=== PATIENT | female | born 1950 | race Caucasian/White ===

== ENCOUNTER 2022-05-26 09:54 | Emergency (ER) | payer MEDICARE, SELFPAY ==
--- NOTE | ~2022-05-26 | XR_ITS ---
EXAMINATION: XR CHEST CLINICAL INFORMATION: Cough COMPARISON: 06/10/2017 chest radiograph TECHNIQUE: Frontal view of the chest was obtained. FINDINGS: Low lung volumes with elevation of the right hemidiaphragm and streaky right basilar opacities. No thorax. No pleural effusion. Remote appearing right rib fracture deformity. Unchanged cardiomediastinal silhouette. XR/XR chest 1V IMPRESSION: Low lung volumes with elevation of the right hemidiaphragm and streaky right basilar opacities favoring atelectasis given diaphragmatic elevation, although developing infection could appear similar.
--- NOTE | ~2022-05-26 | CT_ITS ---
EXAMINATION: CT HEAD WITHOUT CONTRAST CLINICAL INFORMATION: Altered mental status. COMPARISON: Head CT from 06/10/2017 TECHNIQUE: Contiguous axial imaging was performed from the skull base to vertex without intravenous administration of contrast. This CT examination was performed using dose optimization techniques as appropriate, variously including the following: *Automated exposure control *Adjustment of mA and/or kV according to patient size (this includes techniques or standardized protocols for targeted exams where dose is matched to indication/reason for exam; i.e. extremities or head) *Use of iterative reconstruction technique DLP: 582 mGy-cm FINDINGS: No intracranial hemorrhage, extra-axial fluid collection, focal mass effect or midline shift. There is atherosclerotic calcification of cavernous carotid arteries. The gill-white matter differentiation is maintained. No evidence of an acute major vascular territory infarction. Chronic moderate parenchymal volume loss with commensurate prominence of ventricles and sulci; no hydrocephalus. The brainstem and cerebellum are unremarkable. The calvarium is intact. Prior maxillary sinus antrostomies. Findings in paranasal sinuses include mucus and/or mucous retention cysts of inferior right frontal, ethmoid and right maxillary sinuses. No air-fluid levels within the visualized paranasal sinuses. There are frothy secretions in the right sphenoid sinus. The orbits, globes and temporomandibular joints are unremarkable. The mastoid air cells and middle ear cavities are well aerated. CT/CT head/brain wo con IMPRESSION: No evidence of mass, intracranial hemorrhage or other intracranial pathology compared to the prior head CT from 06/10/2017.
[2022-05-26 09:59] VITALS: BP 129/50; PULSE 101; RESP 20; TEMP 37; O2SAT 98; BMI 33.7
--- NOTE | 2022-05-26 12:36 | ED.GENADULT ---
HPI - General Adult General Chief complaint: General Medical Stated complaint: doesn't feel well, feels cold Time Seen by Provider: 05/26/22 12:20 Source: family Mode of arrival: ambulatory Limitations: other (dementia) History of Present Illness HPI narrative: This is 71 years old female with history of dementia brought in by the son because this a.m. she was more disoriented than usual more lethargic. There is no fever no vomiting no diarrhea. The patient is fully ambulatory she came in through triage, according to son now back to the baseline Onset (ago): hour(s) (6) Radiation: non-radiation Severity: mild Relieving factors: none Exacerbating factors: none Associated symptoms: denies other symptoms Related Data Previous Rx's Medication Instructions Recorded atorvastatin 80 mg tablet 80 mg PO DAILY 90 days #90 tabs 11/24/20 metoprolol succinate 25 mg 25 mg PO DAILY 90 days #90 tabs 11/24/20 tablet,extended release 24 hr nirmatrelvir 300 mg (150 mg x See Rx Instructions PO .COMPLEX 05/26/22 2)-ritonavir 100 mg tablet (EUA) #30 tabs (Paxlovid 300 mg () Allergies Allergy/AdvReac Type Severity Reaction Status Date / Time No Known Allergies Allergy Unverified 08/04/20 16:19 [No Known Allergies*] Review of Systems Review of Systems: Yes Other [facility] Past Medical History [facility] Narrative: Dementia Social History Social History Advance Directives: No Advance Directives Information Provided: Yes Physical Exam ED Vital Signs: Vital Signs - 24 hr 05/26/22 09:59 05/26/22 14:00 Temperature 98.6 F 98.2 F Pulse Rate 101 H 83 Respiratory Rate 20 14 Blood Pressure 129/50 L Pulse Oximetry 98 97 Oxygen Delivery Method Room Air Room Air BMI result Body Mass Index 33.7 Const General: cooperative, healthy appearing, no acute distress, well developed, alert, awake and Physically active Nutritional Appearance: average body habitus Orientation/consciousness: No patient oriented x3 Limitations: no limitations HENMT Head: Yes normal to inspection Ears: hearing grossly normal bilaterally General nose exam: Normal external nose present Face and sinus: Yes normal facial exam Mouth: Normal oral and palatal mucosa present Throat: Yes posterior oropharynx normal Neck Neck: Yes normal visual inspection, Yes full ROM, Yes no lymphadenopathy and Yes no meningeal signs Thyroid: Thyroid normal Chest Chest palpation & inspection: normal inspection of the chest Resp Effort & Inspection: normal respiratory effort Auscultation: clear to auscultation bilaterally Cardio Jugular venous distension: no JVD Rate: regular rate Rhythm: regular rhythm GI Inspection: Yes normal to inspection Palpation (GI): Soft to palpation, not firm, nontender and no guarding Auscultation: normal bowel sounds Skin General skin exam: no rashes or lesions noted Neuro General: No patient oriented x3, gait normal, no meningeal signs and no focal motor deficits Cranial nerves: Yes CN's II-XII intact bilaterally Gait exam (Neuro): Normal gait present Course Reevaluation(s) Reevaluation #1: Pt is covid positive,but good oxygenation at . Also she is afebrile.She does not meet criteria for admission.She is not been vaccinated for covid therefore she is an excellent candidate for Paxlovid (age +not vaccinated) Medical Decision Making Lab Data Result diagrams: 05/26/22 13:08 05/26/22 13:08 Labs: Lab Results 05/26/22 05/26/22 05/26/22 Range/Units 13:08 13:08 13:08 WBC Cancelled RBC Cancelled Hgb Cancelled Hct Cancelled MCV Cancelled MCH Cancelled MCHC Cancelled RDW Cancelled Plt Count Cancelled MPV Cancelled Immature Gran % (Auto) (0.0-0.4) % Neut % (Auto) (45-73) % Lymph % (Auto) (20-40) % [place] % (Auto) (2-11) % Eos % (Auto) (0-4) % Baso % (Auto) (0-2) % Lymph # (Auto) (1.2-4.9) X10*3/uL [place] # (Auto) (0.1-1.2) X10*3/uL Eos # (Auto) (0.0-0.4) X10*3/uL Baso # (Auto) (0.0-0.2) X10*3/uL Abs Immat Gran (auto) (0.00-0.03) X10*3/uL Absolute Neuts (auto) (2.0-8.3) x10*3/uL Absolute Nucleated RBC Cancelled Nucleated RBC % (auto) Cancelled Sodium Cancelled Potassium Cancelled Chloride Cancelled Carbon Dioxide Cancelled Anion Gap Cancelled BUN Cancelled Creatinine Cancelled Estim Creat Clear Calc Cancelled Estimated GFR Cancelled Random Glucose Cancelled Calcium Cancelled Total Bilirubin (0.0-1.0) mg/dL AST (5-31) U/L ALT (0-31) U/L Alkaline Phosphatase (39-117) U/L Troponin I High Sens (<3.5-17.0) ng/L Total Protein (6.5-8.0) g/dL Albumin (3.5-5.0) g/dL Urine Color Urine Appearance Urine pH (5.0-8.0) Ur Specific [place] (1.005-1.025) Urine Protein (NEG-TRACE) MG/DL Urine Glucose (UA) (NEG) MG/DL Urine Ketones (NEG) MG/DL Urine Blood (NEG) Urine Nitrite (NEG) Ur Leukocyte Esterase (NEG) Urine RBC (0) /HPF Urine WBC (0-4) /HPF Urine WBC Clumps Ur Squamous Epith Cells /LPF Ur Renal Epithelial Cell [place] Biurate Crystals Calcium Carbonate Cryst Calcium Phosphate Cryst Calcium Oxalate Crystal Leucine Crystals Cystine Crystals Uric Acid Crystals Triple Phos Crystals Talc Crystals Tyrosine Crystals Other Crystals Amorphous Sediment Urine Bacteria /LPF Epithelial Casts Fatty Casts Hyaline Casts Granular Casts Waxy Casts RBC Casts WBC Casts Other Casts Urine Mucus /LPF Urine Trichomonas Urine Yeast Urine Sperm Ur Oval Fat Bodies COVID-19 (JOSE) (Negative) COVID-19 Clin Com Influenza Type A (SUZY) Negative (Negative) Influenza Type B (SUZY) Negative (Negative) Influenza A & B Note See Note 05/26/22 05/26/22 05/26/22 Range/Units 13:08 13:08 13:08 WBC 8.6 RBC 4.53 Hgb 13.9 Hct 41.3 MCV 91.2 MCH 30.7 MCHC 33.7 RDW 12.7 Plt Count 231 MPV 9.3 L Immature Gran % (Auto) 0.5 H (0.0-0.4) % Neut % (Auto) 86.1 H (45-73) % Lymph % (Auto) 3.0 L (20-40) % [place] % (Auto) 9.6 (2-11) % Eos % (Auto) 0.6 (0-4) % Baso % (Auto) 0.2 (0-2) % Lymph # (Auto) 0.3 L (1.2-4.9) X10*3/uL [place] # (Auto) 0.8 (0.1-1.2) X10*3/uL Eos # (Auto) 0.1 (0.0-0.4) X10*3/uL Baso # (Auto) 0.0 (0.0-0.2) X10*3/uL Abs Immat Gran (auto) 0.04 H (0.00-0.03) X10*3/uL Absolute Neuts (auto) 7.4 (2.0-8.3) x10*3/uL Absolute Nucleated RBC 0.000 Nucleated RBC % (auto) 0.0 Sodium 135 Potassium 3.9 Chloride 103 Carbon Dioxide 24 Anion Gap 12 BUN 12 Creatinine 0.90 Estim Creat Clear Calc 52.3 Estimated GFR > 60 Random Glucose 100 Calcium 8.7 Total Bilirubin 0.9 (0.0-1.0) mg/dL AST 16 (5-31) U/L ALT 14 (0-31) U/L Alkaline Phosphatase 89 (39-117) U/L Troponin I High Sens 6.9 (<3.5-17.0) ng/L Total Protein 6.7 (6.5-8.0) g/dL Albumin 4.1 (3.5-5.0) g/dL Urine Color Urine Appearance Urine pH (5.0-8.0) Ur Specific [place] (1.005-1.025) Urine Protein (NEG-TRACE) MG/DL Urine Glucose (UA) (NEG) MG/DL Urine Ketones (NEG) MG/DL Urine Blood (NEG) Urine Nitrite (NEG) Ur Leukocyte Esterase (NEG) Urine RBC (0) /HPF Urine WBC (0-4) /HPF Urine WBC Clumps Ur Squamous Epith Cells /LPF Ur Renal Epithelial Cell [place] Biurate Crystals Calcium Carbonate Cryst Calcium Phosphate Cryst Calcium Oxalate Crystal Leucine Crystals Cystine Crystals Uric Acid Crystals Triple Phos Crystals Talc Crystals Tyrosine Crystals Other Crystals Amorphous Sediment Urine Bacteria /LPF Epithelial Casts Fatty Casts Hyaline Casts Granular Casts Waxy Casts RBC Casts WBC Casts Other Casts Urine Mucus /LPF Urine Trichomonas Urine Yeast Urine Sperm Ur Oval Fat Bodies COVID-19 (JOSE) (Negative) COVID-19 Clin Com Influenza Type A (SUZY) (Negative) Influenza Type B (SUZY) (Negative) Influenza A & B Note 05/26/22 05/26/22 Range/Units 13:09 13:19 WBC RBC Hgb Hct MCV MCH MCHC RDW Plt Count MPV Immature Gran % (Auto) (0.0-0.4) % Neut % (Auto) (45-73) % Lymph % (Auto) (20-40) % [place] % (Auto) (2-11) % Eos % (Auto) (0-4) % Baso % (Auto) (0-2) % Lymph # (Auto) (1.2-4.9) X10*3/uL [place] # (Auto) (0.1-1.2) X10*3/uL Eos # (Auto) (0.0-0.4) X10*3/uL Baso # (Auto) (0.0-0.2) X10*3/uL Abs Immat Gran (auto) (0.00-0.03) X10*3/uL Absolute Neuts (auto) (2.0-8.3) x10*3/uL Absolute Nucleated RBC Nucleated RBC % (auto) Sodium Potassium Chloride Carbon Dioxide Anion Gap BUN Creatinine Estim Creat Clear Calc Estimated GFR Random Glucose Calcium Total Bilirubin (0.0-1.0) mg/dL AST (5-31) U/L ALT (0-31) U/L Alkaline Phosphatase (39-117) U/L Troponin I High Sens (<3.5-17.0) ng/L Total Protein (6.5-8.0) g/dL Albumin (3.5-5.0) g/dL Urine Color YELLOW Urine Appearance HAZY Urine pH 5.5 (5.0-8.0) Ur Specific [place] >= 1.030 H (1.005-1.025) Urine Protein NEG (NEG-TRACE) MG/DL Urine Glucose (UA) NEG (NEG) MG/DL Urine Ketones NEG (NEG) MG/DL Urine Blood 2+ H (NEG) Urine Nitrite POS H (NEG) Ur Leukocyte Esterase NEG (NEG) Urine RBC 1-4 (0) /HPF Urine WBC 0-2 (0-4) /HPF Urine WBC Clumps Cancelled Ur Squamous Epith Cells 1+ /LPF Ur Renal Epithelial Cell Cancelled [place] Biurate Crystals Cancelled Calcium Carbonate Cryst Cancelled Calcium Phosphate Cryst Cancelled Calcium Oxalate Crystal Cancelled Leucine Crystals Cancelled Cystine Crystals Cancelled Uric Acid Crystals Cancelled Triple Phos Crystals Cancelled Talc Crystals Cancelled Tyrosine Crystals Cancelled Other Crystals Cancelled Amorphous Sediment Cancelled Urine Bacteria 3+ /LPF Epithelial Casts Cancelled Fatty Casts Cancelled Hyaline Casts Cancelled Granular Casts Cancelled Waxy Casts Cancelled RBC Casts Cancelled WBC Casts Cancelled Other Casts Cancelled Urine Mucus TRACE /LPF Urine Trichomonas Cancelled Urine Yeast Cancelled Urine Sperm Cancelled Ur Oval Fat Bodies Cancelled COVID-19 (JOSE) Positive A (Negative) COVID-19 Clin Com See Note Influenza Type A (SUZY) (Negative) Influenza Type B (SUZY) (Negative) Influenza A & B Note Discharge Plan Discharge Clinical Impression: COVID-19 Patient Disposition: Home, Self-Care Instructions: COVID-19 (Coronavirus Disease 2019) (ED) Prescriptions: New Paxlovid (EUA) 150 mg x 2- 100 mg tablet See Rx Instructions .ROUTE .COMPLEX Qty: 30 0RF Rx Instructions: take TWO 150 mg tablets of nirmatrelvir with ONE 100 mg tablet of ritonavir twice daily for 5 days No Action metoprolol succinate 25 mg tablet extended release 24 hr 25 mg PO DAILY 90 Days Qty: 90 1RF atorvastatin 80 mg tablet 80 mg PO DAILY 90 Days Qty: 90 1RF Rx Instructions: take at bedtime Interventions: ED Discharge Assessment Last Done: 05/26/22 15:02 Discharge Date/Time: 05/26/22 15:04
[2022-05-26 13:13] LABS: MANUAL DIFF FLAG NO
[2022-05-26 13:26] LABS: Appearance Urine HAZY; Color Urine YELLOW; Glucose Urine UA NEG (NEG); Leukocyte Esterase Urine NEG (NEG); Nitrite Urine POS (NEG); PH 5.5 (5.0-8.0); Specific Gravity - Urine >= 1.030 (1.005-1.025); UACC Culture Trigger YES; Urine Blood 2+ (NEG); Urine Ketones NEG (NEG); Urine Protein NEG (NEG-TRACE)
[2022-05-26 13:30] LABS: COVID-19 Test Positive (Negative); IDNOW Serial# 16C4AD1C
[2022-05-26 13:31] LABS: Basophils Percent Auto 0.2 % (0-2); Eosinophils Absolute Auto 0.1 X10*3/uL (0.0-0.4); Eosinophils Percent Auto 0.6 % (0-4); Hematocrit 41.3 % (37.0-47.0); Hemoglobin 13.9 g/dl (12.0-16.0); Imm Gran Abs Auto 0.04 X10*3/uL (0.00-0.03); Imm Gran Pct Auto 0.5 % (0.0-0.4); Lymphocytes Absolute Auto 0.3 X10*3/uL (1.2-4.9); Mean Corpuscular HGB Conc 33.7 g/dl (31.0-35.0); Mean Corpuscular Hemoglobin 30.7 pg (27.0-33.0); Mean Corpuscular Volume 91.2 fL (80.0-98.0); Mean Platelet Volume 9.3 fL (9.4-12.3); Monocytes Absolute Auto 0.8 X10*3/uL (0.1-1.2); Monocytes Percent Auto 9.6 % (2-11); Neutrophils Absolute Auto 7.4 x10*3/uL (2.0-8.3); Neutrophils Percent Auto 86.1 % (45-73); Platelet Count 231 X10*3/uL (160-400); Red Blood Count 4.53 X10*6/uL (4.20-5.50); Red Cell Distribution Width 12.7 % (11.0-16.0); White Blood Count 8.6 X10*3/uL (4.8-10.8)
[2022-05-26 13:35] LABS: Influenza A Negative (Negative); Influenza B2 Negative (Negative); Troponin-I High Sensitivity 6.9 ng/L (<3.5-17.0)
[2022-05-26 13:36] LABS: Alanine Aminotransferase 14 U/L (0-31); Albumin Level 4.1 g/dL (3.5-5.0); Alkaline Phosphatase 89 U/L (39-117); Anion Gap 12 (12-20); Aspartate Amino Transferase 16 U/L (5-31); Bilirubin Total 0.9 mg/dL (0.0-1.0); Blood Urea Nitrogen 12 mg/dL (9-16); Calcium 8.7 mg/dL (8.4-10.2); Carbon Dioxide 24 mmol/L (22-29); Chloride 103 mmol/L (96-108); Creatinine Clr Calc Pharmacy 52.3; Estimated Glomerular Filt Rate > 60; Glucose Random 100 mg/dL (60-115); Potassium 3.9 mmol/L (3.3-5.1); Sodium 135 mmol/L (135-145); Total Protein 6.7 g/dL (6.5-8.0)
[2022-05-26 13:46] LABS: Bacteria Urine 3+ /LPF; Mucus Urine TRACE /LPF; Squamous Epithelial Cell Urine 1+ /LPF; WBC Urine 0-2 /HPF (0-4)
[2022-05-26 14:00] VITALS: PULSE 83; RESP 14; TEMP 36.8; O2SAT 97
== END 2022-05-26 15:04 | disposition home or self-care (01) ==
PROVIDERS: Emergency Provider Emergency Medicine
DX: U07.1 COVID-19 (principal); R51.9 Headache, unspecified; Z79.899 Other long term (current) drug therapy
CPT/HCPCS: 36415; 70450; 71045; 80053; 81001; 84484; 85025; 87086; 87088; 87186; 87502; 87635; 99283; 99284

== ENCOUNTER 2022-08-23 07:05 | Outpatient (REF) | payer MEDICARE, SELFPAY ==
[2022-08-23 07:18] LABS: MANUAL DIFF FLAG NO
[2022-08-23 07:32] LABS: Basophils Absolute Auto 0.1 X10*3/uL (0.0-0.2); Basophils Percent Auto 0.6 % (0-2); Eosinophils Absolute Auto 0.4 X10*3/uL (0.0-0.4); Eosinophils Percent Auto 4.7 % (0-4); Hematocrit 47.6 % (37.0-47.0); Imm Gran Abs Auto 0.02 X10*3/uL (0.00-0.03); Imm Gran Pct Auto 0.2 % (0.0-0.4); Lymphocytes Absolute Auto 2.3 X10*3/uL (1.2-4.9); Lymphocytes Percent Auto 27.2 % (20-40); Mean Corpuscular HGB Conc 33.6 g/dl (31.0-35.0); Mean Corpuscular Hemoglobin 30.3 pg (27.0-33.0); Mean Corpuscular Volume 90.2 fL (80.0-98.0); Mean Platelet Volume 9.6 fL (9.4-12.3); Monocytes Absolute Auto 0.5 X10*3/uL (0.1-1.2); Monocytes Percent Auto 5.8 % (2-11); Neutrophils Absolute Auto 5.2 x10*3/uL (2.0-8.3); Neutrophils Percent Auto 61.5 % (45-73); Platelet Count 297 X10*3/uL (160-400); Red Blood Count 5.28 X10*6/uL (4.20-5.50); Red Cell Distribution Width 12.4 % (11.0-16.0); White Blood Count 8.5 X10*3/uL (4.8-10.8)
[2022-08-23 08:28] LABS: Alanine Aminotransferase 20 U/L (0-31); Albumin Level 4.3 g/dL (3.5-5.0); Alkaline Phosphatase 79 U/L (39-117); Anion Gap 13 (12-20); Aspartate Amino Transferase 21 U/L (5-31); Blood Urea Nitrogen 12 mg/dL (9-16); Calcium 9.7 mg/dL (8.4-10.2); Carbon Dioxide 26 mmol/L (22-29); Chloride 106 mmol/L (96-108); Cholesterol 225 mg/dL; Estimated Glomerular Filt Rate > 60; Glucose Fasting 91 mg/dL (60-99); HDL Cholesterol 53 mg/dL; LDL Cholesterol Calculated 150 mg/dl; Potassium 4.2 mmol/L (3.3-5.1); Sodium 141 mmol/L (135-145); TSH reflex Free T4 3.35 uIU/mL (0.32-4.0); Total Protein 7.1 g/dL (6.5-8.0); Triglycerides 111 mg/dL; Vitamin D 25-OH Total 22.9 ng/mL (>30)
[2022-08-23 09:02] LABS: Folate 16.1 ng/mL (> or = 4.0); Vitamin B12 313 pg/mL (200-900)
[2022-08-27 16:52] LABS: Lyme Abs Screen <0.90 index
== END 2022-08-23 07:06 | disposition home or self-care (01) ==
LOC: HO.LAB 07:05
PROVIDERS: PCP Nurse Practitioner Family; Visit Provider Nurse Practitioner Family
DX: L98.9 Disorder of the skin and subcutaneous tissue, unspecified (principal); Z76.89 Persons encountering health services in other specified circumstances
CPT/HCPCS: 36415; 80053; 80061; 82306; 82607; 82746; 84443; 85025; 86617; 86618

== ENCOUNTER → 2022-12-18 15:16 | Outpatient (BNVA) | payer MEDICARE, SELFPAY | PROVIDERS: PCP Nurse Practitioner Family; Referring Provider Nurse Practitioner Family; Visit Provider Internal Medicine | DX: I25.10 Atherosclerotic heart disease of native coronary artery without angina pectoris (principal); F03.90 Unspecified dementia, unspecified severity, without behavioral disturbance, psychotic disturbance, mood disturbance, and anxiety | CPT/HCPCS: 93005; 99212 ==

== ENCOUNTER 2023-01-02 05:57 | Outpatient (REF) | payer MEDICARE, SELFPAY ==
[2023-01-02 08:02] LABS: Alanine Aminotransferase 42 U/L (0-31); Albumin Level 3.8 g/dL (3.5-5.0); Alkaline Phosphatase 107 U/L (39-117); Anion Gap 15 (12-20); Aspartate Amino Transferase 32 U/L (5-31); Bilirubin Total 1.2 mg/dL (0.0-1.0); Blood Urea Nitrogen 16 mg/dL (9-16); Calcium 9.1 mg/dL (8.4-10.2); Carbon Dioxide 24 mmol/L (22-29); Chloride 107 mmol/L (96-108); Estimated Glomerular Filt Rate > 60; Glucose Random 88 mg/dL (60-115); Potassium 4.2 mmol/L (3.3-5.1); Sodium 142 mmol/L (135-145); Total Protein 6.3 g/dL (6.5-8.0)
[2023-01-02 08:19] LABS: Vitamin D 25-OH Total 32.6 ng/mL (>30)
== END 2023-01-02 05:58 | disposition home or self-care (01) ==
LOC: HO.LAB 05:57
PROVIDERS: PCP Nurse Practitioner Family; Visit Provider Nurse Practitioner Family
DX: R79.89 Other specified abnormal findings of blood chemistry (principal); E78.5 Hyperlipidemia, unspecified; I25.10 Atherosclerotic heart disease of native coronary artery without angina pectoris
CPT/HCPCS: 36415; 80053; 82306

== ENCOUNTER 2023-03-23 18:17 | Emergency (ER) | payer MEDICARE, SELFPAY ==
--- NOTE | ~2023-03-23 | CT_ITS ---
EXAMINATION: CT ABDOMEN AND PELVIS WITH CONTRAST CLINICAL INFORMATION: Left lower quadrant pain. COMPARISON: 12/06/2017. TECHNIQUE: Multidetector volumetric images were obtained from the superior aspect of the liver through the pubic symphysis following administration 85 mL of Omnipaque 350 intravenous contrast. Sagittal and coronal reformatted images were obtained on the technologist's workstation. Oral contrast: No This CT examination was performed using dose optimization techniques as appropriate, variously including the following: *Automated exposure control *Adjustment of mA and/or kV according to patient size (this includes techniques or standardized protocols for targeted exams where dose is matched to indication/reason for exam; i.e. extremities or head) *Use of iterative reconstruction technique DLP: 697 mGy-cm FINDINGS: LUNG BASES: The lung bases appear clear, with no evidence of inflammation or nodules. Severe coronary arterial calcification. Heart normal in size. No pericardial effusion. LIVER, GALLBLADDER, AND BILIARY TREE: The liver appears unremarkable in size, shape, and attenuation. No focal hepatic lesion or biliary ductal dilatation is appreciated. Unremarkable appearance of the gallbladder. PANCREAS: Unremarkable SPLEEN: Normal variant splenule. ADRENAL GLANDS: Unremarkable KIDNEYS AND URETERS: Subcentimeter benign left mid simple renal cyst for which no further dedicated follow up imaging is indicated. The kidneys otherwise appear unremarkable in size, shape, and attenuation. Normal variant right extrarenal pelvis, similar compared with 2018. No hydronephrosis, hydroureter, or calculi seen. BLADDER: Unremarkable GASTROINTESTINAL TRACT: The small and large bowel appear unremarkable. No diverticulosis. Normal-appearing distal ileum and vermiform appendix. ABDOMINAL WALL: No significant hernia is appreciated. LYMPH NODES: No evidence of adenopathy by size criteria. VASCULAR: 8 mm distal splenic artery aneurysm (image 30, series 3), not significantly changed compared with 2018. Normal variant circumaortic left renal vein. PELVIC VISCERA: Status post hysterectomy. OSSEOUS STRUCTURES: Old, healed fracture of the right seventh rib. CT/CT abdomen pelvis w IV con IMPRESSION: No acute finding. 8 mm distal splenic artery aneurysm, not significantly changed compared with 2018. Additional findings, as above.
[2023-03-23 18:39] VITALS: BP 153/91; PULSE 70; RESP 16; TEMP 36.2; O2SAT 95; BMI 31.0
--- NOTE | 2023-03-23 18:40 | ED.ABDPAIN ---
HPI - Abdominal Pain General Chief Complaint: Abdominal Pain <MICHELLE Paige - Last Filed: 03/23/23 18:44> Stated Complaint: abdominal pain <MICHELLE Paige - Last Filed: 03/23/23 18:44> Time Seen by Provider: 03/23/23 21:09 <MICHELLE Paige - Last Filed: 03/23/23 18:44> Source: patient and family (Son, Smith) <Bruce Tinajero MD - Last Filed: 03/23/23 23:43> Mode of arrival: ambulatory <Bruce Tinajero MD - Last Filed: 03/23/23 23:43> Limitations: other (Patient has memory deficits, information comes from the patient's son) <Bruce Tinajero MD - Last Filed: 03/23/23 23:43> History of Present Illness HPI narrative: 72-year-old female who presents emergency department for evaluation of abdominal pain x2 days. According to her son, the patient was with his cousin's yesterday and last night. When she came home she complained abdominal pain. This morning she appeared to be well. At around 17:00 hours she again complained of abdominal pain. The patient runs her hand diffusely across her abdomen when asked to localize the pain. She describes the pain is a pain which is moderate intensity, constant. She denied fever, chills, nausea, vomiting or diarrhea. She has noted some urinary frequency but no dysuria. The son was concerned that she continued to complain the pain and she states that she could not take the pain anymore therefore he brought her to the emergency department for evaluation. The patient did not take any pain medications prior to coming to emergency department. <Bruce Tinajero MD - Last Filed: 03/23/23 23:43> Related Data Home Medications: Home Medications Medication Instructions Recorded Confirmed sertraline 25 mg tablet 25 mg PO DAILY 10/10/22 01/10/23 memantine 5 mg tablet 5 mg PO BID 12/18/22 01/10/23 Previous Rx's Medication Instructions Recorded nystatin 100,000 unit/gram topical 1 appl topical TID PRN rash #60 10/10/22 powder grams metoprolol succinate 25 mg 25 mg PO DAILY #90 tabs 12/18/22 tablet,extended release 24 hr (Toprol XL) aspirin 81 mg tablet,delayed 81 mg PO DAILY #90 tabs 01/10/23 release atorvastatin 80 mg tablet 80 mg PO DAILY #90 tabs 01/10/23 quetiapine 25 mg tablet (Seroquel) 25 mg PO BEDTIME PRN insomnia #7 01/10/23 tabs ondansetron 4 mg disintegrating 4 mg PO Q6-8H PRN nausea and 03/23/23 tablet vomiting #8 tabs <MICHELLE Paige - Last Filed: 03/23/23 18:44> Allergies/Adverse Reactions: Allergies Allergy/AdvReac Type Severity Reaction Status Date / Time No Known Allergies Allergy Verified 01/10/23 15:58 [No Known Allergies*] <MICHELLE Paige - Last Filed: 03/23/23 18:44> Review of Systems Review of Systems Yes all other systems are reviewed and are negative <Bruce Tinajero MD - Last Filed: 03/23/23 23:43> [facility] Past Medical History [facility] Narrative: Past medical history: Hypertension, coronary disease, SD 2016 left circumflex lesion /REZA. Past surgical history: Hysterectomy. Social history: She lives at home with her son. She denies tobacco use. She was a former smoker. She denies alcohol and drug use. <Bruce Tinajero MD - Last Filed: 03/23/23 23:43> Medical History: Medical History COVID-19 Encounter to establish care <MICHELLE Paige - Last Filed: 03/23/23 18:44> Surgical History: Surgical History H/O: hysterectomy History of colonoscopy Hx of cardiac cath <MICHELLE Paige - Last Filed: 03/23/23 18:44> Family History Family History: Family History Mother No problems noted. Father No problems noted. <MICHELLE Paige - Last Filed: 03/23/23 18:44> Social History Social History: Social History Housing: House Patient Tobacco Use Status: Former Tobacco user Advance Directives: No Advance Directives Information Provided: No service: No Current occupational status: disabled Cognitive needs: No Hearing needs: No Vision needs: No <MICHELLE Paige - Last Filed: 03/23/23 18:44> Physical Exam ED Vital Signs: Vital Signs - 24 hr 03/23/23 18:39 03/23/23 22:52 Temperature 97.2 F 97.6 F Pulse Rate 70 67 Respiratory Rate 16 12 Blood Pressure 153/91 H 110/64 Pulse Oximetry 95 95 Oxygen Delivery Method Room Air Room Air BMI result Body Mass Index 31.0 <MICHELLE Paige - Last Filed: 03/23/23 18:44> Vital Signs - 24 hr 03/23/23 18:39 03/23/23 22:52 Temperature 97.2 F 97.6 F Pulse Rate 70 67 Respiratory Rate 16 12 Blood Pressure 153/91 H 110/64 Pulse Oximetry 95 95 Oxygen Delivery Method Room Air Room Air BMI result Body Mass Index 31.0 <Bruce Tinajero MD - Last Filed: 03/23/23 23:43> Const Other: Awake, alert, female patient, very pleasant cooperative, does not appear to be in distress <Bruce Tinajero MD - Last Filed: 03/23/23 23:43> HENMT Head: Yes normal to inspection, Yes normocephalic and Yes atraumatic <Bruce Tinajero MD - Last Filed: 03/23/23 23:43> Ears: external ears normal <Bruce Tinajero MD - Last Filed: 03/23/23 23:43> General nose exam: Normal external nose present <Bruce Tinajero MD - Last Filed: 03/23/23 23:43> Face and sinus: Yes normal facial exam <Bruce Tinajero MD - Last Filed: 03/23/23 23:43> Mouth: Normal oral and palatal mucosa present <Bruce Tinajero MD - Last Filed: 03/23/23 23:43> Throat: Yes posterior oropharynx normal <MD Monica Quezada Last Filed: 03/23/23 23:43> Eyes General: appearance normal, both eyes and all related structures <MD Monica Quezada Last Filed: 03/23/23 23:43> Pupils: Equal, round and reactive pupils present <MD Monica Quezada Last Filed: 03/23/23 23:43> Neck Neck: Yes normal visual inspection, Yes no lymphadenopathy, Yes trachea midline and Yes supple <MD Monica Quezada Last Filed: 03/23/23 23:43> Chest Chest palpation & inspection: normal inspection of the chest and normal palpation of entire chest wall <MD Monica Quezada Last Filed: 03/23/23 23:43> Resp Effort & Inspection: normal respiratory effort and able to speak in complete sentences <MD Monica Quezada Last Filed: 03/23/23 23:43> Auscultation: clear to auscultation bilaterally <MD Monica Quezada Last Filed: 03/23/23 23:43> Cardio Rate: regular rate <MD Monica Quezada Last Filed: 03/23/23 23:43> Rhythm: regular rhythm <MD Monica Quezada Last Filed: 03/23/23 23:43> Heart sounds: S1 normal heart sound present, S2 normal heart sound present and no murmurs <MD Monica Quezada Last Filed: 03/23/23 23:43> GI Other: Patient's abdomen is soft, she has moderate right upper quadrant tenderness, mild epigastric tender and moderate left-sided tenderness, she has normoactive bowel sounds she does not appear to be distended <MD Monica Quezada Last Filed: 03/23/23 23:43> General: Yes no CVA tenderness <MD Monica Quezada Last Filed: 03/23/23 23:43> Back/Spine/Pelvis Back: no CVA tenderness <MD Monica Quezada Last Filed: 03/23/23 23:43> Skin General skin exam: no rashes or lesions noted <Bruce Tinajero MD - Last Filed: 03/23/23 23:43> Neuro Cranial nerves: Yes CN's II-XII intact bilaterally and Yes Equal, round and reactive pupils present <Bruce Tinajero MD - Last Filed: 03/23/23 23:43> Cognition (Neuro): normal cognition <Bruce Tinajero MD - Last Filed: 03/23/23 23:43> Motor exam (neuro): 5/5 motor strength present throughout <Bruce Tinajero MD - Last Filed: 03/23/23 23:43> Extrem General: Yes normal to inspection <Bruce Tinajero MD - Last Filed: 03/23/23 23:43> Psych Appearance: grossly normal <Bruce Tinajero MD - Last Filed: 03/23/23 23:43> Speech and movement: Normal speech and movement present <Bruce Tinajero MD - Last Filed: 03/23/23 23:43> Affect: normal affect <Bruce Tinajero MD - Last Filed: 03/23/23 23:43> Attitude: cooperative <Bruce Tinajero MD - Last Filed: 03/23/23 23:43> Course Course Course Narrative: RME: 72yo F w/PMHx dementia, CAD, SD, HLD, c/o lower abdominal pain since this AM. Hx limited due to baseline dementia. denies N/V/D, urinary sx Abd soft +LLQ/lower ttp no rebound or guarding labs, UA, CTAP ordered Full HPI, ROS and PE to be performed by primary ED provider. <MICHELLE Paige - Last Filed: 03/23/23 18:44> RME: 72yo F w/PMHx dementia, CAD, SD, HLD, c/o lower abdominal pain since this AM. Hx limited due to baseline dementia. denies N/V/D, urinary sx Abd soft +LLQ/lower ttp no rebound or guarding labs, UA, CTAP ordered Full HPI, ROS and PE to be performed by primary ED provider. RME: Reviewed by me <Bruce Tinajero MD - Last Filed: 03/23/23 23:43> Medical Decision Making Medical Decision Making [facility] Narrative: 72-year-old female who presents emergency department for evaluation of 2 days of abdominal pain, pain started last night, she felt better this morning and the pain returned at 17:00 hours. Patient's pain is located diffusely throughout her abdomen and has gotten worse this evening. Patient does have right upper quadrant epigastric and left-sided abdominal tenderness, she does not appear to be distended she has normoactive bowel sounds. Provider at triage ordered CBC, BMP, liver panel, PT/INR, urinalysis, CT scan abdomen pelvis with IV contrast. Given her coronary artery disease I did add troponin and EKG. Patient's pain will be treated with Toradol 15 mg IV and Zofran 4 mg IV. I also ordered normal saline x1 L. 2130: My interpretation patient's data is as follows: WBC elevated 12,300. BUN elevated 21 with normal creatinine at 0.85. Elevated AST and ALT 02/15/2036, elevated bilirubin 1.3 with direct bilirubin 0.3. Lipase normal 43. Troponin was below detectable limits. Twelve EKG was unremarkable. 2335: CT scan of the abdomen pelvis did not reveal a clear cause for the patient's abdominal pain. Patient is pain-free, repeat abdominal exam revealed no abdominal tenderness. Patient was discharged home and advised to take Tylenol ibuprofen for pain. She also prescribe Zofran for nausea. She was given printed and verbal instructions. <Bruce Tinajero MD - Last Filed: 03/23/23 23:43> Differential Diagnosis Differential diagnosis includes but is not limited to gastritis, biliary disease, bowel obstruction, myocardial infarction/ischemia, colitis, pancreatitis, viral syndrome <Bruce Tinajero MD - Last Filed: 03/23/23 23:43> Lab Data [facility] Lab Attestation statement: I reviewed the patient's lab results. <Bruce Tinajero MD - Last Filed: 03/23/23 23:43> Please see [facility] <Bruce Tinajero MD - Last Filed: 03/23/23 23:43> Result Diagrams: 03/23/23 18:54 03/23/23 18:54 <MICHELLE Paige - Last Filed: 03/23/23 18:44> Labs: Lab Results 03/23/23 03/23/23 03/23/23 Range/Units 18:54 18:54 21:05 WBC 12.3 H (4.8-10.8) X10*3/uL RBC 5.51 H (4.20-5.50) X10*6/uL Hgb 16.6 H (12.0-16.0) g/dl Hct 49.5 H (37.0-47.0) % MCV 89.8 (80.0-98.0) fL MCH 30.1 (27.0-33.0) pg MCHC 33.5 (31.0-35.0) g/dl RDW 12.7 (11.0-16.0) % Plt Count 223 (160-400) X10*3/uL MPV 10.7 (9.4-12.3) fL Immature Gran % (Auto) 0.2 (0.0-0.4) % Neut % (Auto) 70.1 (45-73) % Lymph % (Auto) 20.9 (20-40) % Blair % (Auto) 6.0 (2-11) % Eos % (Auto) 2.4 (0-4) % Baso % (Auto) 0.4 (0-2) % Lymph # (Auto) 2.6 (1.2-4.9) X10*3/uL Blair # (Auto) 0.7 (0.1-1.2) X10*3/uL Eos # (Auto) 0.3 (0.0-0.4) X10*3/uL Baso # (Auto) 0.1 (0.0-0.2) X10*3/uL Abs Immat Gran (auto) 0.03 (0.00-0.03) X10*3/uL Absolute Neuts (auto) 8.6 H (2.0-8.3) x10*3/uL Absolute Nucleated RBC 0.000 (0.0-0.012) X10*3/uL Nucleated RBC % (auto) 0.0 (0.0-0.2) /100WBC Smear Tech's Comments VERIFIED PT 11.4 (10.0-13.1) SEC INR 1.0 (0.9-1.1) Sodium 142 (135-145) mmol/L Potassium 4.5 (3.3-5.1) mmol/L Chloride 106 (96-108) mmol/L Carbon Dioxide 26 (22-29) mmol/L Anion Gap 15 (12-20) BUN 21 H (9-16) mg/dL Creatinine 0.85 (0.5-1.4) mg/dL Estim Creat Clear Calc 54.4 Estimated GFR > 60 Random Glucose 92 (60-115) mg/dL Calcium 10.6 H D (8.4-10.2) mg/dL Magnesium 2.1 (1.6-2.6) mg/dL Total Bilirubin 1.2 H (0.0-1.0) mg/dL Direct Bilirubin 0.3 (0.0-0.5) mg/dL AST 33 H (5-31) U/L ALT 36 H (0-31) U/L Alkaline Phosphatase 107 (39-117) U/L Troponin I High Sens (<3.5-17.0) ng/L Total Protein 7.5 (6.5-8.0) g/dL Albumin 4.5 (3.5-5.0) g/dL Lipase 43 (8-78) U/L 03/23/23 Range/Units 22:04 WBC (4.8-10.8) X10*3/uL RBC (4.20-5.50) X10*6/uL Hgb (12.0-16.0) g/dl Hct (37.0-47.0) % MCV (80.0-98.0) fL MCH (27.0-33.0) pg MCHC (31.0-35.0) g/dl RDW (11.0-16.0) % Plt Count (160-400) X10*3/uL MPV (9.4-12.3) fL Immature Gran % (Auto) (0.0-0.4) % Neut % (Auto) (45-73) % Lymph % (Auto) (20-40) % Blair % (Auto) (2-11) % Eos % (Auto) (0-4) % Baso % (Auto) (0-2) % Lymph # (Auto) (1.2-4.9) X10*3/uL Blair # (Auto) (0.1-1.2) X10*3/uL Eos # (Auto) (0.0-0.4) X10*3/uL Baso # (Auto) (0.0-0.2) X10*3/uL Abs Immat Gran (auto) (0.00-0.03) X10*3/uL Absolute Neuts (auto) (2.0-8.3) x10*3/uL Absolute Nucleated RBC (0.0-0.012) X10*3/uL Nucleated RBC % (auto) (0.0-0.2) /100WBC Smear Tech's Comments PT (10.0-13.1) SEC INR (0.9-1.1) Sodium (135-145) mmol/L Potassium (3.3-5.1) mmol/L Chloride (96-108) mmol/L Carbon Dioxide (22-29) mmol/L Anion Gap (12-20) BUN (9-16) mg/dL Creatinine (0.5-1.4) mg/dL Estim Creat Clear Calc Estimated GFR Random Glucose (60-115) mg/dL Calcium (8.4-10.2) mg/dL Magnesium (1.6-2.6) mg/dL Total Bilirubin (0.0-1.0) mg/dL Direct Bilirubin (0.0-0.5) mg/dL AST (5-31) U/L ALT (0-31) U/L Alkaline Phosphatase (39-117) U/L Troponin I High Sens < 2.7 (<3.5-17.0) ng/L Total Protein (6.5-8.0) g/dL Albumin (3.5-5.0) g/dL Lipase (8-78) U/L <MICHELLE Paige - Last Filed: 03/23/23 18:44> Lab Results 03/23/23 03/23/23 03/23/23 Range/Units 18:54 18:54 21:05 WBC 12.3 H (4.8-10.8) X10*3/uL RBC 5.51 H (4.20-5.50) X10*6/uL Hgb 16.6 H (12.0-16.0) g/dl Hct 49.5 H (37.0-47.0) % MCV 89.8 (80.0-98.0) fL MCH 30.1 (27.0-33.0) pg MCHC 33.5 (31.0-35.0) g/dl RDW 12.7 (11.0-16.0) % Plt Count 223 (160-400) X10*3/uL MPV 10.7 (9.4-12.3) fL Immature Gran % (Auto) 0.2 (0.0-0.4) % Neut % (Auto) 70.1 (45-73) % Lymph % (Auto) 20.9 (20-40) % Blair % (Auto) 6.0 (2-11) % Eos % (Auto) 2.4 (0-4) % Baso % (Auto) 0.4 (0-2) % Lymph # (Auto) 2.6 (1.2-4.9) X10*3/uL Blair # (Auto) 0.7 (0.1-1.2) X10*3/uL Eos # (Auto) 0.3 (0.0-0.4) X10*3/uL Baso # (Auto) 0.1 (0.0-0.2) X10*3/uL Abs Immat Gran (auto) 0.03 (0.00-0.03) X10*3/uL Absolute Neuts (auto) 8.6 H (2.0-8.3) x10*3/uL Absolute Nucleated RBC 0.000 (0.0-0.012) X10*3/uL Nucleated RBC % (auto) 0.0 (0.0-0.2) /100WBC Smear Tech's Comments VERIFIED PT 11.4 (10.0-13.1) SEC INR 1.0 (0.9-1.1) Sodium 142 (135-145) mmol/L Potassium 4.5 (3.3-5.1) mmol/L Chloride 106 (96-108) mmol/L Carbon Dioxide 26 (22-29) mmol/L Anion Gap 15 (12-20) BUN 21 H (9-16) mg/dL Creatinine 0.85 (0.5-1.4) mg/dL Estim Creat Clear Calc 54.4 Estimated GFR > 60 Random Glucose 92 (60-115) mg/dL Calcium 10.6 H D (8.4-10.2) mg/dL Magnesium 2.1 (1.6-2.6) mg/dL Total Bilirubin 1.2 H (0.0-1.0) mg/dL Direct Bilirubin 0.3 (0.0-0.5) mg/dL AST 33 H (5-31) U/L ALT 36 H (0-31) U/L Alkaline Phosphatase 107 (39-117) U/L Troponin I High Sens (<3.5-17.0) ng/L Total Protein 7.5 (6.5-8.0) g/dL Albumin 4.5 (3.5-5.0) g/dL Lipase 43 (8-78) U/L 03/23/23 Range/Units 22:04 WBC (4.8-10.8) X10*3/uL RBC (4.20-5.50) X10*6/uL Hgb (12.0-16.0) g/dl Hct (37.0-47.0) % MCV (80.0-98.0) fL MCH (27.0-33.0) pg MCHC (31.0-35.0) g/dl RDW (11.0-16.0) % Plt Count (160-400) X10*3/uL MPV (9.4-12.3) fL Immature Gran % (Auto) (0.0-0.4) % Neut % (Auto) (45-73) % Lymph % (Auto) (20-40) % Blair % (Auto) (2-11) % Eos % (Auto) (0-4) % Baso % (Auto) (0-2) % Lymph # (Auto) (1.2-4.9) X10*3/uL Blair # (Auto) (0.1-1.2) X10*3/uL Eos # (Auto) (0.0-0.4) X10*3/uL Baso # (Auto) (0.0-0.2) X10*3/uL Abs Immat Gran (auto) (0.00-0.03) X10*3/uL Absolute Neuts (auto) (2.0-8.3) x10*3/uL Absolute Nucleated RBC (0.0-0.012) X10*3/uL Nucleated RBC % (auto) (0.0-0.2) /100WBC Smear Tech's Comments PT (10.0-13.1) SEC INR (0.9-1.1) Sodium (135-145) mmol/L Potassium (3.3-5.1) mmol/L Chloride (96-108) mmol/L Carbon Dioxide (22-29) mmol/L Anion Gap (12-20) BUN (9-16) mg/dL Creatinine (0.5-1.4) mg/dL Estim Creat Clear Calc Estimated GFR Random Glucose (60-115) mg/dL Calcium (8.4-10.2) mg/dL Magnesium (1.6-2.6) mg/dL Total Bilirubin (0.0-1.0) mg/dL Direct Bilirubin (0.0-0.5) mg/dL AST (5-31) U/L ALT (0-31) U/L Alkaline Phosphatase (39-117) U/L Troponin I High Sens < 2.7 (<3.5-17.0) ng/L Total Protein (6.5-8.0) g/dL Albumin (3.5-5.0) g/dL Lipase (8-78) U/L <Bruce Tinajero MD - Last Filed: 03/23/23 23:43> Radiology Impression Discussion of test interpretation with radiology: I have reviewed the radiologist's reading. <Bruce Tinajero MD - Last Filed: 03/23/23 23:43> Radiologist Impression: CT abdomen pelvis w IV con IMPRESSION: No acute finding. 8 mm distal splenic artery aneurysm, not significantly changed compared with 2018. Additional findings, as above. Dictated By:Bart Schwartz <Bruce Tinajero MD - Last Filed: 03/23/23 23:43> Independent Historian Clinical information obtained from an independent historian. History obtained from or confirmed by: Other (Patient's son, Smith provided most of the information since the patient has dementia) <Bruce Tinajero MD - Last Filed: 03/23/23 23:43> Medications Administered Discontinued Medications Generic Name Dose Route Start Last Admin Trade Name Freq PRN Reason Stop Dose Admin Sodium Chloride 1,000 mls @ 999 mls/hr 03/23/23 21:22 03/23/23 22:05 Ns IV 03/23/23 22:22 999 mls/hr .Q1H1M STA Administration Iohexol 100 ml 03/23/23 21:45 03/23/23 21:45 Iohexol 350 Mg/Ml 100 Ml Infus..Btl IV 03/23/23 21:46 85 ml ONCE ONE Administration Ketorolac Tromethamine 15 mg 03/23/23 21:22 03/23/23 22:05 Ketorolac Tromethamine 15 Mg/Ml Vial IVPUSH 03/23/23 21:23 15 mg ONCE STA Administration Ondansetron HCl 4 mg 03/23/23 21:22 03/23/23 22:05 Ondansetron Hcl 4 Mg/2 Ml Vial IVPUSH 03/23/23 21:23 4 mg ONCE ONE Administration <MICHELLE Paige - Last Filed: 03/23/23 18:44> Medications Administered Discontinued Medications Generic Name Dose Route Start Last Admin Trade Name Freq PRN Reason Stop Dose Admin Sodium Chloride 1,000 mls @ 999 mls/hr 03/23/23 21:22 03/23/23 22:05 Ns IV 03/23/23 22:22 999 mls/hr .Q1H1M STA Administration Iohexol 100 ml 03/23/23 21:45 03/23/23 21:45 Iohexol 350 Mg/Ml 100 Ml Infus..Btl IV 03/23/23 21:46 85 ml ONCE ONE Administration Ketorolac Tromethamine 15 mg 03/23/23 21:22 03/23/23 22:05 Ketorolac Tromethamine 15 Mg/Ml Vial IVPUSH 03/23/23 21:23 15 mg ONCE STA Administration Ondansetron HCl 4 mg 03/23/23 21:22 03/23/23 22:05 Ondansetron Hcl 4 Mg/2 Ml Vial IVPUSH 03/23/23 21:23 4 mg ONCE ONE Administration <Bruce Tinajero MD - Last Filed: 03/23/23 23:43> Discharge Plan Discharge Clinical Impression: Abdominal pain <MICHELLE Paige Last Filed: 03/23/23 18:44> Patient Disposition: Home, Self-Care <MICHELLE Paige Last Filed: 03/23/23 18:44> Instructions: Abdominal Pain (ED) <MICHELLE Paige Last Filed: 03/23/23 18:44> Additional Instructions: Your blood work was normal. The CT scan of your abdomen pelvis with IV contrast did not reveal any clear etiology for your pain. Take ibuprofen 200 mg pills, 2 pills every 6 hours as needed for pain. Take Tylenol (acetaminophen) 500 mg pills, 2 pills every 6 hours as needed for pain. Take Zofran ODT 4 mg pills, 1 pill dissolved in your mouth every 8 hours as needed for nausea and vomiting. Follow-up with your doctor in 2 days. Please return to the emergency department if your symptoms get worse or if you develop any symptoms that are concerning to you. <MICHELLE Paige Last Filed: 03/23/23 18:44> Prescriptions: New ondansetron 4 mg tablet,disintegrating 4 mg PO Q6-8H PRN (Reason: nausea and vomiting) Qty: 8 0RF No Action sertraline 25 mg tablet 25 mg PO DAILY nystatin 100,000 unit/gram powder 1 appl topical TID PRN (Reason: rash) Qty: 60 0RF atorvastatin 80 mg tablet 80 mg PO DAILY Qty: 90 2RF aspirin 81 mg tablet,delayed release (DR/EC) 81 mg PO DAILY Qty: 90 1RF quetiapine [Seroquel] 25 mg tablet 25 mg PO BEDTIME PRN (Reason: insomnia) Qty: 7 0RF memantine 5 mg tablet 5 mg PO BID metoprolol succinate [Toprol XL] 25 mg tablet extended release 24 hr 25 mg PO DAILY Qty: 90 3RF <MICHELLE Paige Last Filed: 03/23/23 18:44>
[2023-03-23 19:16] LABS: Alanine Aminotransferase 36 U/L (0-31); Albumin Level 4.5 g/dL (3.5-5.0); Alkaline Phosphatase 107 U/L (39-117); Anion Gap 15 (12-20); Aspartate Amino Transferase 33 U/L (5-31); Bilirubin Direct 0.3 mg/dL (0.0-0.5); Bilirubin Total 1.2 mg/dL (0.0-1.0); Blood Urea Nitrogen 21 mg/dL (9-16); Calcium 10.6 mg/dL (8.4-10.2); Carbon Dioxide 26 mmol/L (22-29); Chloride 106 mmol/L (96-108); Creatinine Clr Calc Pharmacy 54.4; Estimated Glomerular Filt Rate > 60; Glucose Random 92 mg/dL (60-115); Lipase 43 U/L (8-78); Magnesium 2.1 mg/dL (1.6-2.6); Potassium 4.5 mmol/L (3.3-5.1); Sodium 142 mmol/L (135-145); Total Protein 7.5 g/dL (6.5-8.0)
[2023-03-23 19:17] LABS: Basophils Absolute Auto 0.1 X10*3/uL (0.0-0.2); Basophils Percent Auto 0.4 % (0-2); Eosinophils Absolute Auto 0.3 X10*3/uL (0.0-0.4); Eosinophils Percent Auto 2.4 % (0-4); Hematocrit 49.5 % (37.0-47.0); Hemoglobin 16.6 g/dl (12.0-16.0); Imm Gran Abs Auto 0.03 X10*3/uL (0.00-0.03); Imm Gran Pct Auto 0.2 % (0.0-0.4); Lymphocytes Absolute Auto 2.6 X10*3/uL (1.2-4.9); Lymphocytes Percent Auto 20.9 % (20-40); MANUAL DIFF FLAG SCAN; Mean Corpuscular HGB Conc 33.5 g/dl (31.0-35.0); Mean Corpuscular Hemoglobin 30.1 pg (27.0-33.0); Mean Corpuscular Volume 89.8 fL (80.0-98.0); Mean Platelet Volume 10.7 fL (9.4-12.3); Monocytes Absolute Auto 0.7 X10*3/uL (0.1-1.2); Neutrophils Absolute Auto 8.6 x10*3/uL (2.0-8.3); Neutrophils Percent Auto 70.1 % (45-73); PLT CLUMP 1; Red Blood Count 5.51 X10*6/uL (4.20-5.50); Red Cell Distribution Width 12.7 % (11.0-16.0); SCAN SMEAR FLAG 1
[2023-03-23 19:36] LABS: Platelet Count 223 X10*3/uL (160-400); White Blood Count 12.3 X10*3/uL (4.8-10.8)
[2023-03-23 19:37] LABS: SLIDE REVIEW VERIFIED
--- NOTE | 2023-03-23 21:26 | ECG_ITS ---
Test Reason : ABDOMINAL PAIN Blood Pressure : / mmHG Vent. Rate : 075 BPM Atrial Rate : 075 BPM P-R Int : 190 ms QRS Dur : 088 ms QT Int : 412 ms P-R-T Axes : 052 037 051 degrees QTc Int : 460 ms Normal sinus rhythm Normal ECG When compared with ECG of 10-JUN-2017 12:10, Vent. rate has increased BY 25 BPM Referred By: Bruce Tinajero Electronically Signed By:MARELY GARCIA MD
[2023-03-23 21:31] LABS: Prothrombin Time 11.4 SEC (10.0-13.1)
[2023-03-23] MEDS: iohexoL 350 MG/ML 100 ML INFUS..BTL IV (21:45)
[2023-03-23] MEDS: Ketorolac Tromethamine 15 MG/ML VIAL IVPUSH (22:05)
[2023-03-23] MEDS: 0.9 % Sodium Chloride 1,000 ML 999 ML IV (22:05)
[2023-03-23] MEDS: ondansetron HCL 4 MG/2 ML VIAL IVPUSH (22:05)
[2023-03-23 22:39] LABS: Troponin-I High Sensitivity < 2.7 ng/L (<3.5-17.0)
[2023-03-23 22:52] VITALS: BP 110/64; PULSE 67; RESP 12; TEMP 36.4; O2SAT 95
[2023-03-24 00:35] VITALS: BP 132/78; PULSE 79; RESP 16; TEMP 36.7; O2SAT 98
== END 2023-03-24 00:39 | disposition home or self-care (01) ==
PROVIDERS: Physician Assistant; Emergency Provider Emergency Medicine Emergency Medical Services; PCP Nurse Practitioner Family
DX: R10.9 Unspecified abdominal pain (principal); E78.5 Hyperlipidemia, unspecified; Z79.02 Long term (current) use of antithrombotics/antiplatelets; Z79.899 Other long term (current) drug therapy
CPT/HCPCS: 36415; 74177; 80048; 80076; 83690; 83735; 84484; 85025; 85610; 93005; 96361; 96374; 96375; 99284; 99285; J1885; J2405; Q9967

== ENCOUNTER 2023-05-16 16:25 | Outpatient (REF) | payer MEDICARE, SELFPAY ==
--- NOTE | ~2023-05-16 | XR_ITS ---
EXAMINATION: XR CHEST CLINICAL INFORMATION: Reason for Exam Z11.1 - Encounter for screening for respiratory tuberculosis COMPARISON: Chest radiograph 05/26/2022 TECHNIQUE: 2 views of the chest FINDINGS: Lines and tubes: None. Mild biapical pleural-parenchymal scarring similar to prior. Lungs appear otherwise clear. Similar asymmetric elevation of the right hemidiaphragm. Remote right rib fracture deformity. No pleural effusion. No pneumothorax. Unchanged cardiomediastinal silhouette. XR/XR chest 1V IMPRESSION: 1. Mild biapical pleural-parenchymal scarring similar to prior. Lungs appear otherwise clear. 2. Remote right rib fracture deformity.
== END 2023-05-16 16:26 | disposition home or self-care (01) ==
LOC: HO.XRAY 16:25
PROVIDERS: PCP Nurse Practitioner Family; Visit Provider Nurse Practitioner Family
DX: Z11.1 Encounter for screening for respiratory tuberculosis (principal)
CPT/HCPCS: 71045

== ENCOUNTER → 2023-05-23 14:34 | Outpatient (BNVA) | payer MEDICARE, SELFPAY | PROVIDERS: PCP Nurse Practitioner Family; Referring Provider Nurse Practitioner Family; Visit Provider Internal Medicine | DX: I25.10 Atherosclerotic heart disease of native coronary artery without angina pectoris (principal); F03.90 Unspecified dementia, unspecified severity, without behavioral disturbance, psychotic disturbance, mood disturbance, and anxiety | CPT/HCPCS: 99212 ==

== ENCOUNTER 2023-07-08 06:08 | Outpatient (REF) | payer MEDICARE, SELFPAY ==
[2023-07-08 06:34] LABS: MANUAL DIFF FLAG NO
[2023-07-08 07:25] LABS: Basophils Absolute Auto 0.1 X10*3/uL (0.0-0.2); Basophils Percent Auto 0.6 % (0-2); Eosinophils Absolute Auto 0.3 X10*3/uL (0.0-0.4); Eosinophils Percent Auto 4.1 % (0-4); Hematocrit 43.7 % (37.0-47.0); Hemoglobin 14.9 g/dl (12.0-16.0); Imm Gran Abs Auto 0.01 X10*3/uL (0.00-0.03); Imm Gran Pct Auto 0.1 % (0.0-0.4); Lymphocytes Absolute Auto 2.4 X10*3/uL (1.2-4.9); Lymphocytes Percent Auto 30.3 % (20-40); Mean Corpuscular HGB Conc 34.1 g/dl (31.0-35.0); Mean Corpuscular Hemoglobin 30.8 pg (27.0-33.0); Mean Corpuscular Volume 90.5 fL (80.0-98.0); Monocytes Absolute Auto 0.6 X10*3/uL (0.1-1.2); Monocytes Percent Auto 7.5 % (2-11); Neutrophils Absolute Auto 4.6 x10*3/uL (2.0-8.3); Neutrophils Percent Auto 57.4 % (45-73); Platelet Count 252 X10*3/uL (160-400); Red Blood Count 4.83 X10*6/uL (4.20-5.50); Red Cell Distribution Width 12.9 % (11.0-16.0)
[2023-07-08 07:47] LABS: Alanine Aminotransferase 35 U/L (0-31); Albumin Level 3.8 g/dL (3.5-5.0); Alkaline Phosphatase 84 U/L (39-117); Anion Gap 12 (12-20); Aspartate Amino Transferase 36 U/L (5-31); Bilirubin Direct 0.3 mg/dL (0.0-0.5); Bilirubin Total 0.8 mg/dL (0.0-1.0); Blood Urea Nitrogen 21 mg/dL (9-16); Calcium 9.4 mg/dL (8.4-10.2); Carbon Dioxide 28 mmol/L (22-29); Chloride 108 mmol/L (96-108); Cholesterol 127 mg/dL; Estimated Glomerular Filt Rate > 60; Glucose Random 83 mg/dL (60-115); HDL Cholesterol 50 mg/dL; LDL Cholesterol Calculated 68 mg/dl; Potassium 4.6 mmol/L (3.3-5.1); Sodium 143 mmol/L (135-145); Total Protein 6.8 g/dL (6.5-8.0); Triglycerides 47 mg/dL
[2023-07-08 15:05] LABS: Appearance Urine Cloudy; Color Urine Yellow; Glucose Urine UA Negative (Negative); Leukocyte Esterase Urine Moderate (2+) (Negative); Nitrite Urine Positive (Negative); PH 5.5 (5.0-9.0); Specific Gravity - Urine 1.025 (1.005-1.025); UMIC TRIGGER UACC YES; Urine Blood Trace (Negative); Urine Ketones Negative (Negative); Urine Protein Negative (Neg-Trace)
[2023-07-08 15:14] LABS: Bacteria Urine 4+ (None Seen); Calcium Oxalate Crystals Urine Present; Hyaline Casts Urine 0-2 /LPF (0-2); UACC Culture Trigger YES; WBC Urine 21-50 /HPF (0-5)
== END 2023-07-08 06:09 | disposition home or self-care (01) ==
LOC: HO.LAB 06:08
PROVIDERS: PCP Nurse Practitioner Family; Visit Provider Nurse Practitioner Family
DX: E78.5 Hyperlipidemia, unspecified (principal); R35.0 Frequency of micturition; R79.89 Other specified abnormal findings of blood chemistry
CPT/HCPCS: 36415; 80048; 80061; 80076; 81001; 85025; 87086; 87088; 87186

== ENCOUNTER 2023-07-10 15:43 | Outpatient (AMB) | payer MEDICARE, SELFPAY ==
[2023-07-10 15:44] VITALS: BP 128/72; PULSE 63; O2SAT 96; BMI 31.7
--- NOTE | 2023-07-10 15:44 | MHC.PC.OV ---
Vital Signs 07/10/23 15:44 Height 5 ft 1 in Weight 168 lb BMI 31.7 BP 128/72 Blood Pressure Location Lt brachial Position Sitting Pulse 63 Pulse Source Pulse Oximeter Temp Source Skin Pulse Oximetry (%) 96 Oxygen Delivery Method Room Air Intake Visit Reasons: F/U HLD, insomnia Music Executive Required: No Allergies No Known Allergies [No Known Allergies*] Allergy (Verified 07/10/23 16:06) Medication List - Last Reconciled 07/10/23 by JAZMYN Ann aspirin 81 mg PO DAILY atorvastatin 80 mg PO DAILY memantine 5 mg PO BID metoprolol succinate ER (Toprol XL) 25 mg PO DAILY nitrofurantoin monohyd/m-cryst 100 mg (Macrobid) 100 mg PO Q12H 7 days nystatin 1 appl topical TID PRN Tobacco use date assessed: 07/10/23 Fall risk assessment: No Falls in past year Last assessed Fall Risk: 07/10/23 Dental Screening Did you have a dental visit in the last 12 months?: Yes Did you have a dental problem in the last 6 months where you did not have access to dental care?: No Was dental information given to patient?: Patient has dentist HPI F/U HLD, insomnia HPI Details Patient is a 72-year-old female who presents today for a routine follow-up.? Patient is accompanied by her caregiver Phyllis. Medical history significant for hyperlipidemia, CAD, dementia - followed by Dr. Canela, and history of CA - followed by [facility]. Recent blood work results reviewed with the patient and her caregiver. Patient has been having intermittent constipation, reports last bowel movement yesterday which was hard - do not use anything for constipation. Patient currently on antibiotic for UTI. Caregiver reports that patient is more sad and crying more often. Patient denies shortness of breath or chest pain.? Recent blood work results reviewed. [facility] Medical History COVID-19 Encounter to establish care Surgical History H/O: hysterectomy History of colonoscopy Hx of cardiac cath Family History Mother No problems noted. Father No problems noted. Social History Housing: House Patient Tobacco Use Status: Former Tobacco user service: No Current occupational status: disabled Cognitive needs: No Hearing needs: No Vision needs: No Questionnaire PHQ-9 Over the last 2 weeks, how often have you been bothered by any of the following problems? 1. Little interest or pleasure in doing things: not at all 2. Feeling down, depressed, or hopeless: not at all 3. Trouble falling or staying asleep, or sleeping too much: not at all 4. Feeling tired or having little energy: not at all 5. Poor appetite or overeating: not at all 6. Feeling bad about yourself - or that you are a failure or have let yourself or your family down: not at all 7. Trouble concentrating on things, such as reading the newspaper or watching television: not at all 8. Moving or speaking so slowly that other people could have noticed. Or the opposite - being so fidgety or restless that you have been moving around a lot more than usual: not at all 9. Thoughts that you would be better off or of hurting yourself in some way: not at all Total score: 0 Depression Screening Interpretation: Negative 40088 - PHQ-9 Billing: Yes Source: Developed by Drs. Catracho Santa, Rosario Ng, Cecil Bryson and colleagues, with an educational tiffany from [employer]. Thrive Questionnaire Date Thrive assessed: 07/10/23 I am a: Patient What is your living situation today?: I have a steady place to live Within the past 12 months, did the food you bought not last and you didn't have the money to get more?: Never true Within the past 12 months, did you worry whether your food would run out before you got money to buy more?: Never true Currently or been in a relationship where the following occur: no concerns reported AUDIT C Alcohol Use Questionnaire (AUDIT-C) 1. How often do you have a drink containing alcohol?: Never 3. How often do you have six or more drinks on one occasion?: Never Total Score: 0 Score Reviewed/Action Taken: No DEN-7 AMB Questionnaire DEN-7 Date DEN - 7 assessed: 07/10/23 Source: Developed by Drs. Catracho Santa, Rosario Ng, Cecil Bryson and colleagues, with an educational tiffany from [employer]. Review of Systems Const Denies body aches, Denies chills, Denies fever(s) and Denies headache(s) Eyes Denies change in vision ENT Denies dizziness, Denies otalgia, Denies headache(s), Denies nasal discharge, Denies sinus pain and Denies sore throat Card Denies chest pain, Denies edema, Denies lightheadedness and Denies dyspnea Resp Denies cough and Denies dyspnea GI Reports constipation, Denies diarrhea, Denies nausea and Denies vomiting Denies dysuria Musc Denies myalgias Skin/Breast Denies lesions and Denies rash Neuro Denies dizziness and Denies headache(s) Physical exam (Primary Care) Vital Signs: Last Vital Signs Pulse 63 07/10/23 15:44 BP 128/72 07/10/23 15:44 Pulse Ox 96 07/10/23 15:44 Oxygen Delivery Method Room Air 07/10/23 15:44 BMI result Body Mass Index 31.7 Tobacco/Smoking Status: Tobacco use Status Tobacco use date assessed 07/10/23 07/10/23 15:46 Patient Tobacco Use Status Former Tobacco user 07/10/23 15:46 PHQ-9: PHQ-9 Score PHQ-9: Total score 0 07/10/23 15:46 Depression Screening Interpretation: Negative Thrive Assessment: Date of Thrive Assessment Date Thrive assessed 07/10/23 07/10/23 15:46 Currently or been in a relationship where the following occur: no concerns reported Const General: cooperative and no acute distress Orientation/consciousness: oriented to person and oriented to place [facility] Head: Yes normocephalic and Yes atraumatic Face and sinus: Yes sinuses nontender Mouth: oropharynx normal and moist mucous membranes Throat: Yes posterior oropharynx normal Eyes General: appearance normal, both eyes and all related structures Pupils: Equal, round and reactive pupils present EOM: EOMs intact bilaterally Neck Neck: Yes normal visual inspection, Yes full ROM and Yes no lymphadenopathy Thyroid: Thyroid normal Resp Effort & Inspection: normal respiratory effort and able to speak in complete sentences Auscultation: clear to auscultation bilaterally, no crackles, no rales, no rhonchi and no wheezes Cardio Rate: regular rate Rhythm: regular rhythm Heart sounds: S1 normal heart sound present, S2 normal heart sound present and no murmurs GI Palpation (GI): Soft to palpation, not firm, nontender, no guarding, not rigid and no hepatosplenomegaly Auscultation: normal bowel sounds Skin General skin exam: no rashes or lesions noted Neuro General: oriented to person and oriented to place Cranial nerves: Yes Equal, round and reactive pupils present Gait exam (Neuro): Normal gait present Extrem General: Yes full ROM and No edema Assessment and Plan Assessment & Plan (1) CAD (coronary artery disease): Code(s): I25.10 - Atherosclerotic heart disease of [place] coronary artery without angina pectoris Plan: Aspirin 81 mg daily Metoprolol 25 mg daily Atorvastatin 80 mg daily Continue to follow-up with [facility] (2) Dementia: Code(s): F03.90 - Unspecified dementia, unspecified severity, without behavioral disturbance, psychotic disturbance, mood disturbance, and anxiety Plan: Continue to follow-up with neurology Dr. Canela Patient is on memantine 5 mg b.i.d. (3) Hyperlipidemia: Code(s): E78.5 - Hyperlipidemia, unspecified Plan: Goal LDL less than 70 Atorvastatin 80 mg daily (4) Obesity (BMI 30.0-34.9): Code(s): E66.9 - Obesity, unspecified Plan: Healthy food choices and exercise as tolerated (5) Insomnia: Code(s): G47.00 - Insomnia, unspecified Plan: Caregiver reports that patient wakes up at 03:00 o'clock in the morning and she takes multiple naps during the day. She was on Seroquel in the past which she was not taking. (6) Constipation: Code(s): K59.00 - Constipation, unspecified Plan: Increase fluid consumption, dietary fiber, exercise Start Colace daily p.r.n. Plan Follow-up in 3 months or sooner as needed Orders: Orders Comprehensive [place]. Panel Fast 3 Months E78.5 - Hyperlipidemia, unspecified Lipid Panel 3 Months E78.5 - Hyperlipidemia, unspecified Medications: New docusate sodium (Colace) 100 mg PO DAILY PRN 30 caps 1RF constipation K59.00 - Constipation, unspecified Coding Level of Care Code Est Pt Level 4 (97434) Diagnoses CAD (coronary artery disease) I25.10 Dementia F03.90 Hyperlipidemia E78.5 Obesity (BMI 30.0-34.9) E66.9 Insomnia G47.00 Constipation K59.00
== END 2023-07-10 16:21 | disposition home or self-care (01) ==
PROVIDERS: Visit Provider Nurse Practitioner Family
DX: I25.10 Atherosclerotic heart disease of native coronary artery without angina pectoris (principal); F03.90 Unspecified dementia, unspecified severity, without behavioral disturbance, psychotic disturbance, mood disturbance, and anxiety; E66.9 Obesity, unspecified; Z68.31 Body mass index [BMI] 31.0-31.9, adult; E78.5 Hyperlipidemia, unspecified; G47.00 Insomnia, unspecified; K59.00 Constipation, unspecified
CPT/HCPCS: 99214

== ENCOUNTER 2023-09-03 14:40 | Outpatient (REF) | payer MEDICARE, SELFPAY ==
[2023-09-03 14:55] LABS: Appearance Urine Clear; Color Urine Yellow; Glucose Urine UA Negative (Negative); Leukocyte Esterase Urine Moderate (2+) (Negative); Nitrite Urine Positive (Negative); PH 5.5 (5.0-9.0); UMIC TRIGGER UACC YES; Urine Blood Small (1+) (Negative); Urine Ketones Negative (Negative); Urine Protein Negative (Neg-Trace)
[2023-09-03 15:06] LABS: Bacteria Urine 4+ (None Seen); Hyaline Casts Urine 0-2 /LPF (0-2); UACC Culture Trigger YES; WBC Urine 21-50 /HPF (0-5)
== END 2023-09-03 14:41 | disposition home or self-care (01) ==
LOC: HO.LNP 14:40
PROVIDERS: Visit Provider Nurse Practitioner Family
DX: R39.9 Unspecified symptoms and signs involving the genitourinary system (principal)
CPT/HCPCS: 81001; 87086; 87088; 87186

== ENCOUNTER 2023-10-16 14:57 | Outpatient (AMB) | payer MEDICARE, SELFPAY ==
[2023-10-16 14:58] VITALS: BP 138/86; PULSE 84; O2SAT 100; BMI 32.3
--- NOTE | 2023-10-16 14:58 | MHC.PC.OV ---
Vital Signs 10/16/23 14:58 Height 5 ft 1 in Weight 171 lb 0.2 oz BMI 32.3 BP 138/86 Blood Pressure Location Lt brachial Position Sitting Pulse 84 Pulse Source Pulse Oximeter Pulse Oximetry (%) 100 Oxygen Delivery Method Room Air Intake Visit Reasons: Annual Physical Switch Adjuster Required: No Allergies No Known Allergies [No Known Allergies*] Allergy (Verified 10/16/23 15:14) Medication List - Last Reconciled 10/16/23 by JAZMYN Ann aspirin 81 mg PO DAILY atorvastatin 80 mg PO DAILY docusate sodium (Colace) 100 mg PO DAILY PRN memantine 10 mg PO BID metoprolol succinate ER (Toprol XL) 25 mg PO DAILY nystatin 1 appl topical TID PRN sertraline 50 mg PO DAILY Tobacco use date assessed: 10/16/23 Fall risk assessment: No Falls in past year Last assessed Fall Risk: 10/16/23 Dental Screening Dental Screen Date: 10/16/23 Did you have a dental visit in the last 12 months?: Yes Did you have a dental problem in the last 6 months where you did not have access to dental care?: No Was dental information given to patient?: Patient has dentist HPI Annual Physical HPI Details Patient is a 73-year-old female who presents today for physical exam.? Patient is accompanied by her caregiver Phyllis. Medical history significant for hyperlipidemia, CAD, dementia - followed by Dr. Canela, obesity, constipation, and history of CA - followed by [facility]. Today we discussed patient's need for mammogram, bone density screen, colon cancer screening. Patient is interested in a colon cancer screening and she would like to ask her son about mammogram and bone density screen and then she will let us know if she would like to proceed. Patient was encouraged to complete her blood work. [facility] Medical History Encounter to establish care COVID-19 Surgical History Hx of cardiac cath H/O: hysterectomy History of colonoscopy Family History Mother No problems noted. Father No problems noted. Social History Housing: House Patient Tobacco Use Status: Former Tobacco user service: No Current occupational status: disabled Cognitive needs: No Hearing needs: No Vision needs: No Questionnaire PHQ-9 Over the last 2 weeks, how often have you been bothered by any of the following problems? 1. Little interest or pleasure in doing things: not at all 2. Feeling down, depressed, or hopeless: not at all 3. Trouble falling or staying asleep, or sleeping too much: not at all 4. Feeling tired or having little energy: not at all 5. Poor appetite or overeating: not at all 6. Feeling bad about yourself - or that you are a failure or have let yourself or your family down: not at all 7. Trouble concentrating on things, such as reading the newspaper or watching television: not at all 8. Moving or speaking so slowly that other people could have noticed. Or the opposite - being so fidgety or restless that you have been moving around a lot more than usual: not at all 9. Thoughts that you would be better off or of hurting yourself in some way: not at all Total score: 0 Depression Screening Interpretation: Negative Depression Screening Done: Yes 52092 - PHQ-9 Billing: Yes Source: Developed by Drs. Catracho Santa, Rosario Ng, Cecil Bryson and colleagues, with an educational tiffany from [employer]. Thrive Questionnaire Date Thrive assessed: 07/10/23 AUDIT C Alcohol Use Questionnaire (AUDIT-C) 1. How often do you have a drink containing alcohol?: Never 3. How often do you have six or more drinks on one occasion?: Never Total Score: 0 Score Reviewed/Action Taken: No DEN-7 AMB Questionnaire DEN-7 Date DEN - 7 assessed: 07/10/23 Feeling nervous, anxious, or on edge: 0 = Not at all Not being able to stop or control worryin = Not at all Worrying too much about different things: 0 = Not at all Trouble relaxin = Not at all Being so restless that it is hard to sit still: 0 = Not at all Becoming easily annoyed or irritable: 0 = Not at all Feeling afraid as if something awful might happen: 0 = Not at all Total DEN-7 score (0-4 normal; 5-9 mild; 10-14 moderate; 15-21 severe): 0 Source: Developed by Drs. Catracho Santa, Rosario Ng, Cecil Bryson and colleagues, with an educational tiffany from [employer]. DEN-7 Assessment Billing DEN-7 Assessment Tool: DEN-7 Assessment 05307 Review of Systems Const Denies body aches, Denies chills, Denies fever(s) and Denies headache(s) Eyes Denies change in vision ENT Denies dizziness, Denies otalgia, Denies headache(s), Denies nasal discharge, Denies sinus pain and Denies sore throat Card Denies chest pain, Denies edema, Denies lightheadedness and Denies dyspnea Resp Denies cough and Denies dyspnea GI Reports constipation, Denies diarrhea, Denies nausea and Denies vomiting Denies dysuria Musc Denies myalgias Skin/Breast Denies lesions and Denies rash Neuro Denies dizziness and Denies headache(s) Physical exam (Primary Care) Vital Signs: Last Vital Signs Pulse 84 10/16/23 14:58 BP 138/86 10/16/23 14:58 Pulse Ox 100 10/16/23 14:58 Oxygen Delivery Method Room Air 10/16/23 14:58 BMI result Body Mass Index 32.3 Tobacco/Smoking Status: Tobacco use Status Tobacco use date assessed 10/16/23 10/16/23 15:03 Patient Tobacco Use Status Former Tobacco user 10/16/23 15:03 PHQ-9: PHQ-9 Score PHQ-9: Total score 0 10/16/23 15:15 Depression Screening Interpretation: Negative Thrive Assessment: Date of Thrive Assessment Date Thrive assessed 07/10/23 10/16/23 15:03 Const General: cooperative and no acute distress Orientation/consciousness: oriented to person and oriented to place [facility] Head: Yes normocephalic and Yes atraumatic Ears: TM's normal bilaterally Face and sinus: Yes sinuses nontender Mouth: oropharynx normal and moist mucous membranes Throat: Yes posterior oropharynx normal Eyes General: appearance normal, both eyes and all related structures Pupils: Equal, round and reactive pupils present EOM: EOMs intact bilaterally Neck Neck: Yes normal visual inspection, Yes full ROM and Yes no lymphadenopathy Thyroid: Thyroid normal Resp Effort & Inspection: normal respiratory effort and able to speak in complete sentences Auscultation: clear to auscultation bilaterally, no crackles, no rales, no rhonchi and no wheezes Cardio Rate: regular rate Rhythm: regular rhythm Heart sounds: S1 normal heart sound present, S2 normal heart sound present and no murmurs GI Palpation (GI): Soft to palpation, not firm, nontender, no guarding, not rigid and no hepatosplenomegaly Auscultation: normal bowel sounds Skin General skin exam: no rashes or lesions noted Neuro General: oriented to person and oriented to place Cranial nerves: Yes Equal, round and reactive pupils present Gait exam (Neuro): Normal gait present Extrem General: Yes full ROM and No edema Office Procedures Flu Questionnaire Does the patient have a severe egg allergy?: No Does the patient have severe life threatening allergies?: No Does the patient have a fever or illness today?: No Has the patient ever had Guillain-Carlton Syndrome?: No Has the patient ever had any past reaction to a flu shot?: No Immunizations flu vacc [id number] 6mos up(PF) 60 mcg(15 mcgx4)/0.5 mL IM syringe Performing Provider: JAZMYN Ann [facility] Administered by: GIANNA Echeverria on 10/16/23 15:36 Dose Route Admin Location Dispensed Lot Number Expiration Date NDC Machine Rope Maker 0.5 mL IM Left Deltoid 0.5 mL [id number] 05/17/24 55515-906-41 [employer] VIS Given Date VIS Provided VIS Publication Date 10/16/23 Single Vaccine 21 Eligibility Eligibility Date Funding Source Not [facility] Eligible 10/16/23 Private Assessment and Plan Assessment & Plan (1) CAD (coronary artery disease): Code(s): I25.10 - Atherosclerotic heart disease of [place] coronary artery without angina pectoris Plan: Aspirin 81 mg daily Metoprolol 25 mg daily Atorvastatin 80 mg daily Continue to follow-up with [facility] (2) Dementia: Code(s): F03.90 - Unspecified dementia, unspecified severity, without behavioral disturbance, psychotic disturbance, mood disturbance, and anxiety Plan: Continue to follow-up with neurology Dr. Canela who prescribes memantine and sertraline (3) Hyperlipidemia: Code(s): E78.5 - Hyperlipidemia, unspecified Plan: Goal LDL less than 70 Atorvastatin 80 mg daily Encouraged to complete blood work (4) Obesity (BMI 30.0-34.9): Code(s): E66.9 - Obesity, unspecified Plan: Healthy food choices and exercise as tolerated (5) Constipation: Code(s): K59.00 - Constipation, unspecified Plan: Increase fluid consumption, dietary fiber, exercise Patient still with constipation-continue Colace daily p.r.n. and start MiraLax daily p.r.n. (6) Screening for colon cancer: Code(s): Z12.11 - Encounter for screening for malignant neoplasm of colon (7) Adult general medical exam: Comment: No Covid IZ. Code(s): Z00.00 - Encounter for general adult medical examination without abnormal findings Orders: Orders Influenza [id number] Immunization Today Z23 - Encounter for immunization Referrals Gastroenterology Referral Z12.11 - Encounter for screening for malignant neoplasm of colon Medications: New polyethylene glycol 3350 (Miralax) 17 grams PO DAILY PRN 238 grams 0RF constipation K59.00 - Constipation, unspecified Coding Level of Care Code Est Pt Prev Care >65y(51778) Diagnoses CAD (coronary artery disease) I25.10 Dementia F03.90 Hyperlipidemia E78.5 Obesity (BMI 30.0-34.9) E66.9 Constipation K59.00 Screening for colon cancer Z12.11 Adult general medical exam Z00.00 Additional Codes DEN-7 Assessment Billing - DEN-7 Assessment Tool: DEN-7 Assessment 74063 ([id number])
== END 2023-10-16 15:40 | disposition home or self-care (01) ==
PROVIDERS: PCP Nurse Practitioner Family; Visit Provider Nurse Practitioner Family
DX: Z00.00 Encounter for general adult medical examination without abnormal findings (principal); I25.10 Atherosclerotic heart disease of native coronary artery without angina pectoris; F03.90 Unspecified dementia, unspecified severity, without behavioral disturbance, psychotic disturbance, mood disturbance, and anxiety; Z23 Encounter for immunization; E78.5 Hyperlipidemia, unspecified; E66.9 Obesity, unspecified; K59.00 Constipation, unspecified
CPT/HCPCS: 90471; 90686; 99397

== ENCOUNTER 2023-10-25 10:58 | Outpatient (AMB) | payer MEDICARE, SELFPAY ==
--- NOTE | 2023-10-25 11:07 | MHC.OFFVIS ---
Intake Intake Visit Reasons: Recurrent UTI Intake Note: New Patient presents for initial visit for recurrent uti Urology Medications: none Blood Thinner: aspirin PVR: 0ml's Treasury Director Required: No Accompanied by: Unknown Allergies No Known Allergies [No Known Allergies*] Allergy (Verified 10/25/23 11:47) Medication List - Last Reconciled 10/25/23 by COTY Salcedo aspirin 81 mg PO DAILY atorvastatin 80 mg PO DAILY docusate sodium (Colace) 100 mg PO DAILY PRN memantine 10 mg PO BID nystatin 1 appl topical TID PRN polyethylene glycol 3350 (Miralax) 17 grams PO DAILY PRN sertraline 50 mg PO DAILY HPI HPI Comments History of Present Illness Details Marisol is a very pleasantly confused 73-year-old female patient of Dr. Oconnor was accompanied by her [employer] H[employer]IST Phyllis at today's office visit. She has a past medical history of hyperlipidemia, CAD, dementia - followed by Dr. Canela, obesity, constipation, and history of [place] - followed by [facility]. She presents to the office today as a new patient for recurrent urinary tract infections. In discussion with patient's [employer] HOSPITALIST who provides most if not all of today's history. Patient's [employer] HOSPITALIST Phyllis reports patient to have experienced and been treated for urinary tract infection the month of July and August. It appears she was treated by PCP. She currently denies any bothersome urinary issues or concerns. She denies any UTI like symptoms at this time. Typically when patient is experiencing a urinary tract infection she reports to have incontinence and is more forgetful than usual. Unable to obtain urine for urinalysis however PVR 0 mL. Discussed at length potential causes of recurrent urinary tract infections. Patient's [employer] worker believes patient to be experiencing UTIs related to hygiene. Discussed obtaining retroperitoneal ultrasound for further assessment evaluation as well as Estrace cream versus Vagifem. She denies urinary urgency, urinary frequency, incontinence, nocturia, hematuria, dysuria, foul smelling urine, changes to urinary stream, flank pain, fever, and or chills. She is happy with her current voiding parameters. She otherwise offers no other issues or concerns at this time [facility] Medical History Encounter to establish care COVID-19 Surgical History Hx of cardiac cath H/O: hysterectomy History of colonoscopy Family History Mother No problems noted. Father No problems noted. Social History Housing: House Patient Tobacco Use Status: Former Tobacco user service: No Current occupational status: disabled Cognitive needs: No Hearing needs: No Vision needs: No Review of Systems Eyes Reports no additional complaints ENT Reports no additional complaints Card Reports as per HPI Resp Reports no additional complaints GI Reports as per HPI Reports as per HPI Musc Reports no additional complaints Neuro Reports as per HPI Psych Reports as per HPI Endo Reports no additional complaints Richard/Lymph Reports no additional complaints Aller/Immun Reports no additional complaints Physical Exam Const General: cooperative, healthy appearing, comfortable, no acute distress, well developed, alert and awake Nutritional Appearance: overweight Orientation/consciousness: oriented to person Limitations: no limitations HEENT Head: Yes normal to inspection, Yes normocephalic and Yes atraumatic Ears: hearing grossly normal bilaterally Eyes General: appearance normal, both eyes and all related structures Neck Neck: Yes normal visual inspection and Yes trachea midline Chest Chest palpation & inspection: normal inspection of the chest Resp Effort & Inspection: normal respiratory effort and able to speak in complete sentences Cardio Rate: regular rate GI Inspection: Yes normal to inspection General: Yes no CVA tenderness Back/Spine/Pelvis Back: no CVA tenderness Skin General skin exam: no rashes or lesions noted Neuro General: oriented to person Extrem General: Yes normal to inspection Psych Appearance: grossly normal and well kempt Mental Status: other (pleasantly confused ) Speech and movement: Normal speech and movement present and Clear speech present Affect: normal affect Attitude: cooperative Thought content: Normal thought content present Insight: Limited insight present (Psych) Judgement: Limited judgement present (Psych) Assessment & Plan Assessment & Plan (1) Recurrent UTI: Code(s): N39.0 - Urinary tract infection, site not specified Plan Unable to obtain urine for urinalysis however PVR 0 mL. Will obtain retroperitoneal ultrasound for further assessment evaluation. Patient currently any bothersome urinary issues or concerns at this time. She is happy with her current voiding parameters Discussed UTI prevention with D mannose supplement, vitamin-C, increasing fluid intake, behavioral therapy with timed voiding, perineal hygiene and postcoital voiding, and management of constipation with stool softeners and increased fiber intake. Start Estrace cream as discussed and prescribed. Follow-up in 1-2 months with imaging to be completed prior; or sooner with any issues, concerns, and or questions. Orders: Orders AMB Post Void Residual by ultrasound Today R35.0 - Frequency of micturition AMB Urinalysis Automated Today Z13.9 - Encounter for screening, unspecified US retroperitoneal comp Today N39.0 - Urinary tract infection, site not specified Medications: New estradiol 0.01%(0.1mg/gram) vaginally 3 times a week; pea sized amount to urethra 3 times a week 30 days 42.5 grams 0RF Patient Instructions: The patient had an opportunity to ask questions regarding the treatment plan. All questions were answered. Physical exam, labs, and imaging were discussed and reviewed in detail. As well as risks, benefits, and discussion of treatment choices. No major barriers to understanding were identified. The patient expressed understanding and agreement with the above treatment plan. The patient was made aware they should contact our office by phone for worsening of their current condition, the appearance of new symptoms, or with any questions or concerns. Compliance is encouraged with any medications and follow up testing that is ordered. It is a privilege to be allowed the opportunity to participate in? your urological care.? Again, if you have any questions or concerns If you have any questions or concerns please do not hesitate to contact me. The office is [phone]. This note is constructed using voice recognition software. While every effort has been made to ensure accuracy art history instructor errors may have been included. Yours sincerely, COTY Salcedo Coding Level of Care Code New Pt Level 4 (84242) Diagnoses Recurrent UTI N39.0
== END 2023-10-25 11:49 | disposition home or self-care (01) ==
PROVIDERS: PCP Nurse Practitioner Family; Visit Provider Nurse Practitioner Family
DX: N39.0 Urinary tract infection, site not specified (principal)
CPT/HCPCS: 99204

== ENCOUNTER → 2023-10-25 10:58 | Outpatient (BNVA) | payer MEDICARE, SELFPAY | PROVIDERS: PCP Nurse Practitioner Family; Visit Provider Nurse Practitioner Family | DX: N39.0 Urinary tract infection, site not specified (principal) | CPT/HCPCS: 99202 ==

== ENCOUNTER 2023-11-21 14:31 | Outpatient (REF) | payer MEDICARE, SELFPAY | END 2023-11-21 14:32 | disposition home or self-care (01) | LOC: HO.LNP 14:31 | PROVIDERS: Visit Provider Internal Medicine | DX: R39.9 Unspecified symptoms and signs involving the genitourinary system (principal) | CPT/HCPCS: 81001; 87086 ==

== ENCOUNTER 2023-12-03 13:49 | Outpatient (REF) | payer MEDICARE, SELFPAY ==
--- NOTE | ~2023-12-03 | US_ITS ---
EXAMINATION: US RETROPERITONEAL LIMITED (RENAL ONLY) CLINICAL INFORMATION: Urinary tract infection, site not specified. COMPARISON: CT abdomen and pelvis without contrast 03/23/2023. Renal ultrasound 07/14/2018 and 01/20/2018. TECHNIQUE: Real-time imaging of the kidneys. Technically extremely limited study secondary to body habitus. FINDINGS: RIGHT KIDNEY: 8.4 x 5.0 x 4.8 cm (SAG x AP x TRV). No calculi or focal parenchymal lesions. No hydronephrosis. LEFT KIDNEY: 8.1 x 4.1 x 3.8 cm (SAG x AP x TRV). No calculi or focal parenchymal lesions. No hydronephrosis. US/US renal BI IMPRESSION: Bilateral small, nonhydronephrotic kidneys.
== END 2023-12-03 13:50 | disposition home or self-care (01) ==
LOC: HO.US 13:49
PROVIDERS: Visit Provider Nurse Practitioner Family
DX: N39.0 Urinary tract infection, site not specified (principal)
CPT/HCPCS: 76775

== ENCOUNTER 2023-12-05 12:36 | Outpatient (REF) | payer MEDICARE, SELFPAY ==
--- NOTE | ~2023-12-05 | US_ITS ---
EXAMINATION: US PELVIS LIMITED (BLADDER) CLINICAL INFORMATION: Recurrent UTIs. COMPARISON: Renal ultrasound 12/03/2023. CT abdomen and pelvis with contrast 03/23/2023. Renal ultrasound 07/14/2018. TECHNIQUE: Real-time imaging of the bladder. FINDINGS: BLADDER: Partially distended. Bilateral ureteral jets are not demonstrated. Prevoid bladder volume is 64.5 mL. Postvoid bladder volume is 26.4 mL. US/US bladder IMPRESSION: 1. Bilateral ureteral jets were not demonstrated. Otherwise unremarkable bladder ultrasound.
== END 2023-12-05 12:37 | disposition home or self-care (01) ==
LOC: HO.US 12:36
PROVIDERS: PCP Nurse Practitioner Family; Visit Provider Nurse Practitioner Family
DX: N39.0 Urinary tract infection, site not specified (principal)
CPT/HCPCS: 76857

== ENCOUNTER 2023-12-06 11:20 | Outpatient (AMB) | payer MEDICARE, SELFPAY ==
--- NOTE | 2023-12-06 11:31 | A.OFFVIS_ITS ---
Intake Intake Visit Reasons: 6w/US Intake Note: Patient presents for follow up visit for recurrent uti and ultrasound results (imaging 12/03/23& 12/05/23) Urology Medications: estrace cream Blood Thinner: aspirin PVR: 0ml's Boat Dispatcher Required: No Accompanied by: Unknown Allergies No Known Allergies [No Known Allergies*] Allergy (Verified 12/06/23 12:13) Medication List - Last Reconciled 12/06/23 by JAZMYN Salcedo- aspirin 81 mg PO DAILY atorvastatin 80 mg PO DAILY docusate sodium (Colace) 100 mg PO DAILY PRN estradiol 0.01%(0.1mg/gram) vaginally 3 times a week; pea sized amount to urethra 3 times a week 30 days memantine 10 mg PO BID nystatin 1 appl topical TID PRN polyethylene glycol 3350 (Miralax) 17 grams PO DAILY PRN sertraline 50 mg PO DAILY HPI HPI Comments History of Present Illness Details Marisol is a very pleasantly confused 73-year-old female patient of Dr. Oconnor was accompanied by her CLINICAL RESEARCH ADMINISTRATOR Phyllis at today's office visit. She has a past medical history of hyperlipidemia, CAD, dementia - followed by Dr. Canela, obesity, constipation, and history of [place] - followed by [facility]. She presents to the office today for a follow up of her recurrent UTIS. Of note, patient was seen approximately 6 weeks ago at which a retroperitoneal ultrasound was ordered for further assessment evaluation. These results reviewed with the patient today. Bilateral kidneys with no calculi, lesions, and or hydronephrosis noted. Examination of the bladder is limited as patient was unable to hold urine in bladder. In discussion with the patient and her CLINICAL RESEARCH ADMINISTRATOR worker today it appears since last office visit approximately 6 weeks ago patient was treated for UTI with her PCP and has finished antibiotic therapy approximately 2 days ago. She currently denies any bothersome urinary issues or concerns. Unable to obtain urine for urinalysis today however PVR 0 mL. She does report compliance with Estrace cream as prescribed. When asked she denies urinary urgency, urinary frequency, incontinence, nocturia, hematuria, dysuria, foul smelling urine, changes to urinary stream, flank pain, fever, and or chills. When asked she does report to have intermittent issues with constipation. She is happy with her current voiding parameters. She otherwise offers no other issues or concerns at this time [facility] Medical History Encounter to establish care COVID-19 Surgical History Hx of cardiac cath H/O: hysterectomy History of colonoscopy Family History Mother No problems noted. Father No problems noted. Social History Housing: House Patient Tobacco Use Status: Former Tobacco user service: No Current occupational status: disabled Cognitive needs: No Hearing needs: No Vision needs: No Review of Systems Eyes Reports no additional complaints ENT Reports no additional complaints Card Reports as per HPI Resp Reports no additional complaints GI Reports as per HPI Reports as per HPI Musc Reports no additional complaints Neuro Reports as per HPI Psych Reports as per HPI Endo Reports no additional complaints Richard/Lymph Reports no additional complaints Aller/Immun Reports no additional complaints Physical Exam Const General: cooperative, healthy appearing, comfortable, no acute distress, well developed, alert and awake Nutritional Appearance: overweight Orientation/consciousness: oriented to person Limitations: no limitations HEENT Head: Yes normal to inspection, Yes normocephalic and Yes atraumatic Ears: hearing grossly normal bilaterally Eyes General: appearance normal, both eyes and all related structures Neck Neck: Yes normal visual inspection and Yes trachea midline Chest Chest palpation & inspection: normal inspection of the chest Resp Effort & Inspection: normal respiratory effort and able to speak in complete sentences Cardio Rate: regular rate GI Inspection: Yes normal to inspection General: Yes no CVA tenderness Back/Spine/Pelvis Back: no CVA tenderness Skin General skin exam: no rashes or lesions noted Neuro General: oriented to person Extrem General: Yes normal to inspection Psych Appearance: grossly normal and well kempt Mental Status: other (pleasantly confused ) Speech and movement: Normal speech and movement present and Clear speech present Affect: normal affect Attitude: cooperative Thought content: Normal thought content present Insight: Limited insight present (Psych) Judgement: Limited judgement present (Psych) Office Procedures Post Void Residual Post Residual Void Post Void Residual (PVR): 0 [id number]-[id number] Void Residual by ultrasound Results Reviewed Results Reviewed: Date of Service: 12/03/23 EXAMINATION: US RETROPERITONEAL LIMITED (RENAL ONLY) FINDINGS: RIGHT KIDNEY: 8.4 x 5.0 x 4.8 cm (SAG x AP x TRV). No calculi or focal parenchymal lesions. No hydronephrosis. LEFT KIDNEY: 8.1 x 4.1 x 3.8 cm (SAG x AP x TRV). No calculi or focal parenchymal lesions. No hydronephrosis. US/US renal BI IMPRESSION: Bilateral small, nonhydronephrotic kidneys. Assessment & Plan Assessment & Plan (1) Recurrent UTI: Code(s): N39.0 - Urinary tract infection, site not specified (2) Urinary frequency: Code(s): R35.0 - Frequency of micturition Plan Unable to obtain urine for urinalysis however PVR 0 mL. Recent retroperitoneal ultrasound results reviewed with the patient and her care worker today. Continue Estrace cream as discussed and prescribed. Patient currently any bothersome urinary issues or concerns at this time. She is happy with her current voiding parameters Discussed UTI prevention with D mannose supplement, vitamin-C, increasing fluid intake, behavioral therapy with timed voiding, perineal hygiene and postcoital voiding, and management of constipation with stool softeners and increased fiber intake. Follow-up in 3 months with imaging to be completed prior; or sooner with any issues, concerns, and or questions. Orders: Orders AMB Urinalysis Automated Today Z13.9 - Encounter for screening, unspecified AMB Post Void Residual by ultrasound Today R35.0 - Frequency of micturition Patient Instructions: The patient had an opportunity to ask questions regarding the treatment plan. All questions were answered. Physical exam, labs, and imaging were discussed and reviewed in detail. As well as risks, benefits, and discussion of treatment choices. No major barriers to understanding were identified. The patient expressed understanding and agreement with the above treatment plan. The patient was made aware they should contact our office by phone for worsening of their current condition, the appearance of new symptoms, or with any questions or concerns. Compliance is encouraged with any medications and follow up testing that is ordered. It is a privilege to be allowed the opportunity to participate in? your urological care.? Again, if you have any questions or concerns If you have any questions or concerns please do not hesitate to contact me. The office is [phone]. This note is constructed using voice recognition software. While every effort has been made to ensure accuracy local company intermodal truck driver errors may have been included. Yours sincerely, JAZMYN Salcedo-HOOD Coding Level of Care Code Est Pt Level 3 (48925) Diagnoses Recurrent UTI N39.0 Urinary frequency R35.0 CPT Codes Post Residual Void - PVR CPT Code: 63051-Cbob Void Residual by ultrasound ([id number])
== END 2023-12-06 12:17 | disposition home or self-care (01) ==
PROVIDERS: PCP Nurse Practitioner Family; Visit Provider Nurse Practitioner Family
DX: N39.0 Urinary tract infection, site not specified (principal); R35.0 Frequency of micturition
CPT/HCPCS: 99213

== ENCOUNTER → 2023-12-06 11:20 | Outpatient (BNVA) | payer MEDICARE, SELFPAY | PROVIDERS: PCP Nurse Practitioner Family; Visit Provider Nurse Practitioner Family | DX: N39.0 Urinary tract infection, site not specified (principal); R35.0 Frequency of micturition | CPT/HCPCS: 51798; 99212 ==

== ENCOUNTER 2023-12-18 09:06 | Outpatient (AMB) | payer MEDICARE, SELFPAY ==
--- NOTE | 2023-12-18 09:18 | MHC.OFFVIS ---
Intake Vital Signs 12/18/23 09:19 Height 5 ft 1 in Weight 168 lb BMI 31.7 BP 140/80 H Blood Pressure Location Lt brachial Position Sitting Pulse 75 Intake Visit Reasons: Colonoscopy Screening Intake Note: Patient new consult for pre colonoscopy screening. Patient cc: Constipation and denies any other GI issues. Accounts Payable Representative Required: No Accompanied by: Other Relationship Allergies No Known Allergies [No Known Allergies*] Allergy (Verified 12/18/23 09:18) HPI Colonoscopy Screening HPI Details 73 year old? female here today for pre colonoscopy screening.? Patient was sent to us by her PCP.? Last colonoscopy 10 years ago or so, patient was told to repeat colonoscopy in 10 years. Patient reports that she is constipated, using MiraLax and docusate sodium, still constipated.? Patient denies any gastrointestinal symptoms in the past or at present.? Denies any personal or family history of gastrointestinal disease, colon polyps, or cancer.? Denies history of difficulty with sedation or anesthesia in the past.? Negative for history of sleep apnea.? Denies any history of cardiac, renal, pulmonary, or hepatic disease.?? No history of infectious? diseases like hepatitis A, B, C, HIV or tuberculosis.? Patient is not on any anticoagulation therapy. [facility] Medical History Encounter to establish care COVID-19 Surgical History Hx of cardiac cath H/O: hysterectomy History of colonoscopy Family History Mother No problems noted. Father No problems noted. Social History Housing: House Patient Tobacco Use Status: Former Tobacco user service: No Current occupational status: disabled Cognitive needs: No Hearing needs: No Vision needs: No Review of Systems Const Denies weight gain and Denies weight loss ENT Reports no additional complaints, Denies dysphagia and Denies odynophagia Card Reports no additional complaints Resp Reports no additional complaints GI Denies abdominal pain, Denies belching, Denies melena, Denies bloating, Reports constipation, Denies dysphagia, Denies excessive flatus, Denies dyspepsia, Denies heartburn, Denies diarrhea, Denies loose stools, Denies nausea, Denies odynophagia and Denies vomiting Reports no additional complaints Musc Reports no additional complaints Neuro Reports no additional complaints Psych Reports no additional complaints Endo Reports no additional complaints Physical Exam Vital Signs: Last Vital Signs Pulse 75 12/18/23 09:19 BP 140/80 H 12/18/23 09:19 BMI result Body Mass Index 31.7 Const General: healthy appearing, no acute distress and well developed Nutritional Appearance: well nourished Resp Effort & Inspection: normal respiratory effort, able to speak in complete sentences, no tracheal deviation and symmetric chest movement Auscultation: clear to auscultation bilaterally Cardio Rate: regular rate GI Inspection: Yes normal to inspection and No distended Palpation (GI): Soft to palpation, not firm, nontender and No hepatosplenomegaly present Auscultation: normal bowel sounds General: Yes no CVA tenderness Back/Spine/Pelvis Back: no CVA tenderness Skin General skin exam: elasticity normal, turgor normal and dry skin Psych Appearance: grossly normal Mental Status: mental status grossly normal Assessment & Plan Assessment & Plan (1) Screening for colon cancer: Code(s): Z12.11 - Encounter for screening for malignant neoplasm of colon (2) Constipation: Code(s): K59.00 - Constipation, unspecified Qualifiers: Constipation type: slow transit constipation Qualified Code(s): K59.01 - Slow transit constipation Plan Patient reports constipation. She can take MiraLax in the morning and Dulcolax tablets in the evening. Patient denies any melena, hematochezia, unintentional weight loss or ribbon like stools. Last colonoscopy 10 years ago. Patient will be going to see validation leader in May, this will be a screening colonoscopy so we can wait till cleared by Cardiology. We will book procedure for end of May beginning of June. I will see patient after her Cardiology appointment to go over her prep. Patient was encouraged to increase fluid intake and activity to promote better bowel motility. Both patient and her CRIMP SETTER are agreeable to plan of care and verbalizes understanding of instructions. They were given the opportunity to ask questions and all questions answered. Thank you for allowing me to participate in her care Medications: New bisacodyl (Dulcolax (bisacodyl)) 10 mg (2 x 5 mg) PO BEDTIME 180 tabs 4RF Coding Level of Care Code New Pt Level 3 (14097) Diagnoses Screening for colon cancer Z12.11 Slow transit constipation K59.01 Constipation type: slow transit constipation Time Spent (min) 40 Comment 30 minutes spent with patient and additional 10 minutes spent reviewing her records
[2023-12-18 09:19] VITALS: BP 140/80; PULSE 75; BMI 31.7
== END 2023-12-18 10:20 | disposition home or self-care (01) ==
PROVIDERS: PCP Internal Medicine; Referring Provider Internal Medicine; Visit Provider Nurse Practitioner Family
DX: K59.01 Slow transit constipation (principal)
CPT/HCPCS: 99203; 99213

== ENCOUNTER → 2023-12-18 09:06 | Outpatient (BNVA) | payer MEDICARE, SELFPAY | PROVIDERS: PCP Internal Medicine; Visit Provider Nurse Practitioner Family | DX: Z01.818 Encounter for other preprocedural examination (principal); K59.01 Slow transit constipation | CPT/HCPCS: 99202 ==

== ENCOUNTER 2024-02-25 07:59 | Outpatient (AMB) | payer MEDICARE, SELFPAY ==
--- NOTE | 2024-02-25 08:25 | A.OFFPC_ITS ---
Vital Signs 02/25/24 08:29 Height 5 ft 1 in Weight 166 lb BMI 31.4 BP 112/70 Blood Pressure Location Rt brachial Position Sitting Intake Visit Reasons: F/U on HLD Intake Note: Patient here for a follow up HLD Net Washer Required: No Accompanied by: Vandana/ Phyllis Allergies No Known Allergies [No Known Allergies*] Allergy (Verified 02/25/24 08:42) Medication List - Last Reconciled 02/25/24 by Alexia Taylor MD aspirin 81 mg PO DAILY atorvastatin 80 mg PO DAILY bisacodyl (Dulcolax (bisacodyl)) 10 mg (2 x 5 mg) PO BEDTIME docusate sodium (Colace) 100 mg PO DAILY PRN estradiol 0.01%(0.1mg/gram) vaginally 3 times a week; pea sized amount to urethra 3 times a week 30 days memantine 10 mg PO BID nystatin 1 appl topical TID PRN sertraline 50 mg PO DAILY Tobacco use date assessed: 02/25/24 Fall risk assessment: 1 Fall in past year Last assessed Fall Risk: 02/25/24 Dental Screening Dental Screen Date: 02/25/24 Did you have a dental visit in the last 12 months?: Yes Did you have a dental problem in the last 6 months where you did not have access to dental care?: No Was dental information given to patient?: Patient has dentist HPI HPI Comments History of Present Illness Details This is a 73-year-old female with dementia, splenic artery aneurysm, constipation, coronary artery disease and hyperlipidemia that comes today accompanied by vandana Ferguson complaining of pruritic skin lesion in her face that has increase in size and has been bothering her for few months. She has dementia but is able to walk with no assistive device. Needs assistance in basic activities of daily living such as bathing, toileting, and dress ing/undressing. She is awake and alert but not oriented to time, person or place. Dementia is follow by Neurology which saw her recently and did not find any changes. Constipation stable with medications. Had a myocardial infarction few years ago that required drug-eluting stent and is on aspirin for secondary prophylaxis of coronary artery disease. On statins for her hyperlipidemia. No chest pain or shortness of breath. For her splenic artery aneurysm she was referred to vascular surgery in March 2023 by Shawanda Oconnor but it does not seem that she was seen and Phyllis is not certain. I will refer her again to vascular surgery. [facility] Medical History (Updated 02/25/24 @ 11:10 by Alexia Taylor MD) Encounter to establish care COVID-19 Surgical History Hx of cardiac cath H/O: hysterectomy History of colonoscopy Family History Mother No problems noted. Father No problems noted. Social History Housing: House Patient Tobacco Use Status: Former Tobacco user e-Cigarette/Vaping Use: Never Used Second Hand Smoke Exposure: No service: No Current occupational status: disabled Cognitive needs: No Hearing needs: No Vision needs: No Questionnaire PHQ-9 Over the last 2 weeks, how often have you been bothered by any of the following problems? 1. Little interest or pleasure in doing things: not at all 2. Feeling down, depressed, or hopeless: several days 3. Trouble falling or staying asleep, or sleeping too much: not at all 4. Feeling tired or having little energy: not at all 5. Poor appetite or overeating: not at all 6. Feeling bad about yourself - or that you are a failure or have let yourself or your family down: not at all 7. Trouble concentrating on things, such as reading the newspaper or watching television: not at all 8. Moving or speaking so slowly that other people could have noticed. Or the opposite - being so fidgety or restless that you have been moving around a lot more than usual: not at all 9. Thoughts that you would be better off or of hurting yourself in some way: not at all Total score: 1 Depression Screening Interpretation: Negative Depression Screening Done: Yes Source: Developed by Drs. Catracho Santa, Rosario Ng, Cecil Bryson and colleagues, with an educational tiffany from [facility]. Thrive Questionnaire Date Thrive assessed: 02/25/24 I am a: Parent/Caregiver What is your living situation today?: I have a steady place to live Within the past 12 months, did the food you bought not last and you didn't have the money to get more?: Never true Within the past 12 months, did you worry whether your food would run out before you got money to buy more?: Never true Do you have trouble paying for medicines?: No Do you have trouble getting transportation to medical appointments?: No Do you have trouble paying your heating and electricity bill?: No Do you have trouble taking care of your child, family member or friend?: No Do you have trouble with day-to-day activities such as bathing, preparing meals, shopping, managing finances, etc.?: Yes Are you currently unemployed and looking for a job?: No Are you interested in more education?: No Please select the resources that you would like help with: None Currently or been in a relationship where the following occur: no concerns reported THRIVE Score: 0 AUDIT C Alcohol Use Questionnaire (AUDIT-C) 1. How often do you have a drink containing alcohol?: Never Total Score: 0 DEN-7 AMB Questionnaire DEN-7 Date DEN - 7 assessed: 02/25/24 Feeling nervous, anxious, or on edge: 1 = Several days Not being able to stop or control worryin = Not at all Worrying too much about different things: 0 = Not at all Trouble relaxin = Not at all Being so restless that it is hard to sit still: 0 = Not at all Becoming easily annoyed or irritable: 0 = Not at all Feeling afraid as if something awful might happen: 0 = Not at all Total DEN-7 score (0-4 normal; 5-9 mild; 10-14 moderate; 15-21 severe): 1 Source: Developed by Drs. Catracho Santa, Rosario Ng, Cecil Bryson and colleagues, with an educational tiffany from [facility]. Review of Systems Const All systems reviewed & are unremarkable except as noted in HPI and below Eyes Reports no additional complaints, Denies change in vision and Denies other visual disturbances Card Denies chest pain at rest, Denies chest pain with activity, Denies edema, Denies irregular heart rhythm, Denies claudication, Denies dyspnea, Denies dyspnea on exertion, Denies orthopnea, Denies paroxysmal nocturnal dyspnea and Denies slow heart rate Resp Denies cough, Denies dyspnea and Denies dyspnea on exertion GI Denies abdominal pain, Denies change in bowel habits, Denies excessive flatus, Denies nausea and Denies vomiting Denies urinary incontinence, Denies urinary hesitancy and Denies urinary urgency Neuro Reports confusion and Reports memory loss Psych Reports confusion and Reports memory loss Physical exam (Primary Care) Vital Signs: Last Vital Signs BP 112/70 02/25/24 08:29 BMI result Body Mass Index 31.4 Tobacco/Smoking Status: Tobacco use Status Tobacco use date assessed 02/25/24 02/25/24 08:33 Patient Tobacco Use Status Former Tobacco user 02/25/24 08:33 e-Cigarette/Vaping Use Never Used 02/25/24 08:33 PHQ-9: PHQ-9 Score PHQ-9: Total score 1 02/25/24 08:50 Depression Screening Interpretation: Negative Thrive Assessment: Date of Thrive Assessment Date Thrive assessed 02/25/24 02/25/24 08:33 Currently or been in a relationship where the following occur: no concerns reported Const General: confusion Orientation/consciousness: confusion Resp Effort & Inspection: normal respiratory effort Auscultation: clear to auscultation bilaterally Cardio Jugular venous distension: no JVD Rate: regular rate Rhythm: regular rhythm Heart sounds: S1 normal heart sound present and S2 normal heart sound present Skin Lesions: lesion noted (dry round scaly patch in right cheek) Neuro General: confusion Cognition (Neuro): abnormal cognition Gait exam (Neuro): Normal gait present Extrem General: Yes full ROM Assessment and Plan Assessment & Plan (1) Splenic artery aneurysm: Comment: 03/2023 CT/CT abdomen pelvis w IV con IMPRESSION: No acute finding. 8 mm distal splenic artery aneurysm, not significantly changed compared with 2018. Additional findings, as above. Code(s): I72.8 - Aneurysm of other specified arteries Plan: Referred again to vascular surgery. (2) Dementia: Code(s): F03.90 - Unspecified dementia, unspecified severity, without behavioral disturbance, psychotic disturbance, mood disturbance, and anxiety Qualifiers: Dementia type: Alzheimer's Alzheimer's disease onset: unspecified onset Dementia behavioral or psychological symptom: without behavioral, psychotic, or mood disturbance or anxiety Plan: Continue memantine. Follow-up with Neurology. (3) Constipation: Code(s): K59.00 - Constipation, unspecified Qualifiers: Constipation type: slow transit constipation Qualified Code(s): K59.01 - Slow transit constipation Plan: Continue docusate as needed. (4) CAD (coronary artery disease): Code(s): I25.10 - Atherosclerotic heart disease of [place] coronary artery without angina pectoris Plan: Continue aspirin for secondary prophylaxis. (5) Skin lesion: Code(s): L98.9 - Disorder of the skin and subcutaneous tissue, unspecified Plan: Referred to dermatology (6) Hyperlipidemia: Code(s): E78.5 - Hyperlipidemia, unspecified Plan: Continue statins. Orders: Orders Comprehensive [facility] [place]. Panel Fast 8 Months F03.90 - Unspecified dementia, unspecified severity, without behavioral disturbance, psychotic disturbance, mood disturbance, and anxiety Lipid Panel 8 Months E78.5 - Hyperlipidemia, unspecified Vitamin D 25-OH Total 8 Months E55.9 - Vitamin D deficiency, unspecified Complete Blood Count Auto Diff 8 Months F03.90 - Unspecified dementia, unspecified severity, without behavioral disturbance, psychotic disturbance, mood disturbance, and anxiety Referrals Vascular Surgery Referral I72.8 - Aneurysm of other specified arteries Dermatology Referral L98.9 - Disorder of the skin and subcutaneous tissue, unspecified Medications: New cetirizine 10 mg (10 mL) PO DAILY 30 days PRN 120 mL 0RF allergy symptoms Coding Level of Care Code Est Pt Level 4 (90571) Diagnoses Splenic artery aneurysm I72.8 Dementia F03.90 Dementia type: Alzheimer's Alzheimer's disease onset: unspecified onset Dementia behavioral or psychological symptom: without behavioral, psychotic, or mood disturbance or anxiety Slow transit constipation K59.01 Constipation type: slow transit constipation CAD (coronary artery disease) I25.10 Skin lesion L98.9 Hyperlipidemia E78.5 Time Spent (min) 25
[2024-02-25 08:29] VITALS: BP 112/70; BMI 31.4
== END 2024-02-25 08:56 | disposition home or self-care (01) ==
PROVIDERS: PCP Internal Medicine; Visit Provider Internal Medicine
DX: I72.8 Aneurysm of other specified arteries (principal); F03.90 Unspecified dementia, unspecified severity, without behavioral disturbance, psychotic disturbance, mood disturbance, and anxiety; K59.01 Slow transit constipation; I25.10 Atherosclerotic heart disease of native coronary artery without angina pectoris; L98.9 Disorder of the skin and subcutaneous tissue, unspecified; E78.5 Hyperlipidemia, unspecified
CPT/HCPCS: 99214

== ENCOUNTER 2024-03-09 10:33 | Outpatient (AMB) | payer MEDICARE, SELFPAY ==
--- NOTE | 2024-03-09 10:42 | A.OFFVIS_ITS ---
Intake Visit Reasons: 3m/PVR Intake Note: Patient presents for follow up visit for recurrent uti and frequency Urology Medications: estrace cream Blood Thinner: aspirin PVR: 30ml's Hand Mexican Food Maker Required: No Accompanied by: Unknown Allergies No Known Allergies [No Known Allergies*] Allergy (Verified 03/09/24 11:18) Medication List - Last Reconciled 03/09/24 by JAZMYN Salcedo- aspirin 81 mg PO DAILY atorvastatin 80 mg PO DAILY bisacodyl (Dulcolax (bisacodyl)) 10 mg (2 x 5 mg) PO BEDTIME cetirizine 10 mg (10 mL) PO DAILY PRN 30 days docusate sodium (Colace) 100 mg PO DAILY PRN estradiol 0.01%(0.1mg/gram) vaginally 3 times a week; pea sized amount to urethra 3 times a week 30 days memantine 10 mg PO BID nystatin 1 appl topical TID PRN sertraline 50 mg PO DAILY HPI Comments Details: Marisol is a very pleasantly confused 73-year-old female patient of Dr. Oconnor was accompanied by her PLATFORM BEATER Phyllis at today's office visit. She has a past medical history of hyperlipidemia, CAD, dementia - followed by Dr. Canela, obesity, constipation, and history of IA - followed by [facility]. She presents to the office today for follow-up of her recurrent urinary tract infections. Of note, patient was seen approximately as a new patient for recurrent urinary tract infections at which time a retroperitoneal ultrasound was ordered for further assessment evaluation and the patient was started on Estrace cream. In discussion with patient's PLATFORM BEATER who provides most if not all of today's history she discusses patient has noted to have increased issues with her constipation over the last week. Bilateral kidneys with no calculi, lesions, and or hydronephrosis. Bilateral small non hydrophilic kidneys. The bladder is partially distended. Pre void bladder volume is approximately 65 mL. Postvoid bladder volume is approximately 25 mL. In office urinalysis results reviewed with the patient today. Positive leukocytes positive nitrates. When asked she does report noting foul-smelling urine she otherwise denies any UTI like symptoms. However she typically presents with altered mental status changes when having a urinary tract infection. Per patient's PLATFORM BEATER she has not noted any change in her mental status however does report foul-smelling urine. His PVR 30 mL. When asked she does report compliance with Estrace cream as prescribed. When asked she denies to be drinking water daily as she prefers to drink Pepsi. She otherwise denies urinary urgency, urinary frequency, incon tinence, nocturia, hematuria, dysuria, changes to urinary stream, flank pain, fever, and or chills. She is happy with her current voiding parameters. She otherwise offers no other issues or concerns at this time [facility] Medical History Encounter to establish care COVID-19 Surgical History Hx of cardiac cath H/O: hysterectomy History of colonoscopy Family History Mother No problems noted. Father No problems noted. Social History Housing: House Patient Tobacco Use Status: Former Tobacco user e-Cigarette/Vaping Use: Never Used Second Hand Smoke Exposure: No service: No Current occupational status: disabled Cognitive needs: No Hearing needs: No Vision needs: No Review of Systems Eyes Reports no additional complaints ENT Reports no additional complaints Card Reports as per HPI Resp Reports no additional complaints GI Reports as per HPI Reports as per HPI Musc Reports no additional complaints Neuro Reports as per HPI Psych Reports as per HPI Endo Reports no additional complaints Richard/Lymph Reports no additional complaints Aller/Immun Reports no additional complaints Physical Exam Const General: cooperative, healthy appearing, comfortable, no acute distress, well developed, alert and awake Nutritional Appearance: overweight Orientation/consciousness: oriented to person Limitations: no limitations HEENT Head: Yes normal to inspection, Yes normocephalic and Yes atraumatic Ears: hearing grossly normal bilaterally Eyes General: appearance normal, both eyes and all related structures Neck Neck: Yes normal visual inspection and Yes trachea midline Chest Chest palpation & inspection: normal inspection of the chest Resp Effort & Inspection: normal respiratory effort and able to speak in complete sentences Cardio Rate: regular rate GI Inspection: Yes normal to inspection General: Yes no CVA tenderness Back/Spine/Pelvis Back: no CVA tenderness Skin General skin exam: no rashes or lesions noted Neuro General: oriented to person Extrem General: Yes normal to inspection Psych Appearance: grossly normal and well kempt Mental Status: other (pleasantly confused ) Speech and movement: Normal speech and movement present and Clear speech present Affect: normal affect Attitude: cooperative Thought content: Normal thought content present Insight: Limited insight present (Psych) Judgement: Limited judgement present (Psych) Office Procedures Post Void Residual Post Residual Void Post Void Residual (PVR): 30 [id number] Void Residual by ultrasound Results AMB Urinalysis, Automated UA Leukoctes 500 Johnny/uL Last Edit by Pacheco Yang on 03/09/24 11:07 UA Nitrite Positive Last Edit by [employer] on 03/09/24 11:07 UA Urobilinogen 0.2 mg/dL Last Edit by [employer] (acquired by [employer] in 2014) on 03/09/24 11:07 UA Protein 15 mg/dL Last Edit by Bizzukajose on 03/09/24 11:07 UA pH 5.0 Last Edit by B[employer] on 03/09/24 11:07 UA Blood 80 Mendel/uL Last Edit by [employer] on 03/09/24 11:07 UA Specific Sunray 1.020 Last Edit by Bizzukajose on 03/09/24 11:07 UA Ketone Positive Last Edit by [employer] (acquired by [employer] in 2014) on 03/09/24 11:07 UA Bilirubin 0 mg/dL Last Edit by Bizzukajose on 03/09/24 11:07 UA Glucose 0 mg/dL Last Edit by [email or web address] on 03/09/24 11:07 Results Reviewed Results Reviewed: Laboratory Last Values Urine pH (Auto) 5.0 03/09/24 10:51 Specific Sunray (Auto) 1.020 03/09/24 10:51 Urine Protein (Auto) 15 mg/dL 03/09/24 10:51 Glucose (UA)(Auto) 0 mg/dL 03/09/24 10:51 Urine Ketones (Auto) Positive 03/09/24 10:51 Urine Blood (Auto) 80 Mendel/uL 03/09/24 10:51 Urine Nitrite (Auto) Positive 03/09/24 10:51 Urine Bilirubin (Auto) 0 mg/dL 03/09/24 10:51 Urine Urobilinogen (Auto) 0.2 mg/dL 03/09/24 10:51 Leukocyte Esterase (Auto) 500 Johnny/uL 03/09/24 10:51 Date of Service: 12/05/23 EXAMINATION: US PELVIS LIMITED (BLADDER) FINDINGS: BLADDER: Partially distended. Bilateral ureteral jets are not demonstrated. Prevoid bladder volume is 64.5 mL. Postvoid bladder volume is 26.4 mL. IMPRESSION: 1. Bilateral ureteral jets were not demonstrated. Otherwise unremarkable bladder ultrasound. Date of Service: 12/03/23 EXAMINATION: US RETROPERITONEAL LIMITED (RENAL ONLY) FINDINGS: RIGHT KIDNEY: 8.4 x 5.0 x 4.8 cm (SAG x AP x TRV). No calculi or focal parenchymal lesions. No hydronephrosis. LEFT KIDNEY: 8.1 x 4.1 x 3.8 cm (SAG x AP x TRV). No calculi or focal parenchymal lesions. No hydronephrosis. IMPRESSION: Bilateral small, nonhydronephrotic kidneys. Assessment & Plan Assessment & Plan (1) Recurrent UTI: Code(s): N39.0 - Urinary tract infection, site not specified Category: Medical (2) Foul smelling urine: Code(s): R82.90 - Unspecified abnormal findings in urine Category: Medical (3) Urinary tract infection: Code(s): N39.0 - Urinary tract infection, site not specified Category: Medical Plan In office urinalysis results reviewed with the patient today; as noted above; will send for urine culture. Start Macrobid as discussed and prescribed. Recent retroperitoneal ultrasound results reviewed with the patient today; as noted above. Discussed, educated, and stressed the importance of drinking water daily. Continue Estrace cream as discussed Discussed UTI prevention with D mannose supplement, vitamin-C, increasing fluid intake, behavioral therapy with timed voiding, perineal hygiene and postcoital voiding, and management of constipation with stool softeners and increased fiber intake. Follow-up in 1 month with PVR; or sooner with any issues, concerns, and or questions. Orders: Orders AMB Urinalysis Automated Today Z13.9 - Encounter for screening, unspecified Urine Culture Today N39.0 - Urinary tract infection, site not specified AMB Post Void Residual by ultrasound Today N39.0 - Urinary tract infection, site not specified Patient Instructions: The patient had an opportunity to ask questions regarding the treatment plan. All questions were answered. Physical exam, labs, and imaging were discussed and reviewed in detail. As well as risks, benefits, and discussion of treatment choices. No major barriers to understanding were identified. The patient expressed understanding and agreement with the above treatment plan. The patient was made aware they should contact our office by phone for worsening of their current condition, the appearance of new symptoms, or with any questions or concerns. Compliance is encouraged with any medications and follow up testing that is ordered. It is a privilege to be allowed the opportunity to participate in? your urological care.? Again, if you have any questions or concerns If you have any questions or concerns please do not hesitate to contact me. The office is [phone]. This note is constructed using voice recognition software. While every effort has been made to ensure accuracy pearl digger errors may have been included. Yours sincerely, COTY Salcedo
== END 2024-03-09 11:14 | disposition home or self-care (01) ==
LOC: HO.HUSH 10:33
PROVIDERS: PCP Internal Medicine; Visit Provider Nurse Practitioner Family
DX: N39.0 Urinary tract infection, site not specified (principal); R82.90 Unspecified abnormal findings in urine; Z13.9 Encounter for screening, unspecified
CPT/HCPCS: 99214

== ENCOUNTER 2024-03-09 10:33 | Outpatient (REF) | payer MEDICARE, SELFPAY | END 2024-03-09 10:34 | disposition home or self-care (01) | LOC: HO.LNP 10:33 | PROVIDERS: PCP Internal Medicine; Visit Provider Nurse Practitioner Family | DX: N39.0 Urinary tract infection, site not specified (principal) | CPT/HCPCS: 51798; 81003; 87086; 87088; 87186; 99212 ==

== ENCOUNTER 2024-03-20 08:56 | Outpatient (REF) | payer MEDICARE, SELFPAY ==
[2024-03-22 23:58] LABS: TS Negative Control Passed; TS Panel A 0; TS Panel B 1; TS Positive Control Passed; TSpotTB Negative (Negative)
== END 2024-03-20 08:57 | disposition home or self-care (01) ==
LOC: HO.LAB 08:56
PROVIDERS: PCP Internal Medicine; Visit Provider Internal Medicine
DX: Z11.1 Encounter for screening for respiratory tuberculosis (principal)
CPT/HCPCS: 36415; 86481

== ENCOUNTER 2024-05-26 14:24 | Outpatient (AMB) | payer MEDICARE, SELFPAY ==
--- NOTE | 2024-05-26 14:27 | MHC.OFFVIS ---
Vital Signs 05/26/24 14:28 Height 5 ft 1 in Weight 160 lb 7.944 oz BMI 30.3 BP 108/60 Blood Pressure Location Lt brachial Position Sitting Pulse 84 Intake Visit Reasons: 1 yr f/up + clearance GI procedure Ortho Rn Required: No Atomic Spectroscopist: Atomic Spectroscopist Present Accompanied by: Son Allergies No Known Allergies [No Known Allergies*] Allergy (Verified 03/09/24 11:18) Medication List - Last Reconciled 05/26/24 by Antwon Suárez MD aspirin 81 mg PO DAILY atorvastatin 80 mg PO DAILY bisacodyl (Dulcolax (bisacodyl)) 5 mg PO BEDTIME PRN 90 days cetirizine 10 mg (10 mL) PO DAILY PRN 30 days docusate sodium (Colace) 100 mg PO DAILY PRN estradiol 0.01%(0.1mg/gram) vaginally 3 times a week; pea sized amount to urethra 3 times a week 30 days memantine 10 mg PO BID 90 days nystatin 1 appl topical TID PRN sertraline 50 mg PO DAILY HPI Comments Details: Renée returns for follow-up regarding coronary disease. To recall, she underwent drug-eluting stent to the midcircumflex/OM1 in 2016 after NSTEMI. For the last few years, she has been diagnosed with dementia. Now in a assisted living facility. Here with her son. Overall, no specific cardiac concerns. Seems to be doing okay in that regard. [facility], LATER [facility] Medical History Encounter to establish care COVID-19 Surgical History Hx of cardiac cath H/O: hysterectomy History of colonoscopy Family History Mother No problems noted. Father No problems noted. Social History Housing: House Patient Tobacco Use Status: Former Tobacco user e-Cigarette/Vaping Use: Never Used Second Hand Smoke Exposure: No service: No Current occupational status: disabled Cognitive needs: No Hearing needs: No Vision needs: No Review of Systems Const Denies chills, Denies fatigue, Denies fever(s), Denies weight gain and Denies weight loss Card Denies chest pain, Denies leg edema, Denies lightheadedness, Denies palpitations, Denies dyspnea on exertion and Denies orthopnea Resp Denies cough and Denies dyspnea on exertion GI Denies hematochezia and Denies change in stool character Musc Denies muscle weakness and Denies radiating pain into limb Endo Denies fatigue and Denies palpitations Physical Exam Vital Signs: Last Vital Signs Pulse 84 05/26/24 14:28 BP 108/60 05/26/24 14:28 BMI result Body Mass Index 30.3 Const General: comfortable and no acute distress Orientation/consciousness: No patient oriented x3 HEENT Other: Unremarkable Head: Yes normal to inspection Neck Neck: Yes normal visual inspection Chest Chest palpation & inspection: normal inspection of the chest Resp Auscultation: clear to auscultation bilaterally Cardio Palpation: normal PMI Heart sounds: S1 normal heart sound present, S2 normal heart sound present, no gallops, no murmurs and no rubs GI Palpation (GI): Soft to palpation Back/Spine/Pelvis Other: unremarkable Skin General skin exam: no rashes or lesions noted Neuro General: No patient oriented x3 Extrem General: Yes normal to inspection Psych Mental Status: mental status grossly abnormal Office Procedures EKG Details: EKG with sinus rhythm at 84/Min; right atrial enlargement; no significant ST-T changes and otherwise unremarkable[place] [address]-[id number], Complete Assessment & Plan Assessment & Plan (1) CAD (coronary artery disease): Code(s): I25.10 - Atherosclerotic heart disease of [place] coronary artery without angina pectoris Category: Medical Plan: NSTEMI 2016; status post cardiac [id number]-[id number] stent to mid circumflex/1st obtuse marginal; 50% stenosis the mid right coronary artery but otherwise unremarkable. Remains on aspirin and statins. (2) Dementia: Code(s): F03.90 - Unspecified dementia, unspecified severity, without behavioral disturbance, psychotic disturbance, mood disturbance, and anxiety Category: Medical Qualifiers: Alzheimer's disease onset: unspecified onset Dementia behavioral or psychological symptom: without behavioral, psychotic, or mood disturbance or anxiety Dementia type: Alzheimer's Plan: Due to this, likely conservative care only. Plan There was a plan for colonoscopy but son states that they may not proceed, mainly due to dementia. Agree with this. Coding Level of Care Code Est Pt Level 3 (71830) Diagnoses CAD (coronary artery disease) I25.10 Dementia F03.90 Alzheimer's disease onset: unspecified onset Dementia behavioral or psychological symptom: without behavioral, psychotic, or mood disturbance or anxiety Dementia type: Alzheimer's CPT Codes EKG - CPT: 23239-[id number], Complete ([id number])
[2024-05-26 14:28] VITALS: BP 108/60; PULSE 84; BMI 30.3
== END 2024-05-26 14:53 | disposition home or self-care (01) ==
PROVIDERS: PCP Internal Medicine; Visit Provider Internal Medicine
DX: I25.10 Atherosclerotic heart disease of native coronary artery without angina pectoris (principal); F03.90 Unspecified dementia, unspecified severity, without behavioral disturbance, psychotic disturbance, mood disturbance, and anxiety
CPT/HCPCS: 93010; 99213

== ENCOUNTER → 2024-05-26 14:24 | Outpatient (BNVA) | payer MEDICARE, SELFPAY | PROVIDERS: PCP Internal Medicine; Visit Provider Internal Medicine | DX: I25.10 Atherosclerotic heart disease of native coronary artery without angina pectoris (principal); I25.2 Old myocardial infarction; G30.9 Alzheimer's disease, unspecified; F02.80 Dementia in other diseases classified elsewhere, unspecified severity, without behavioral disturbance, psychotic disturbance, mood disturbance, and anxiety; Z79.82 Long term (current) use of aspirin; Z79.899 Other long term (current) drug therapy | CPT/HCPCS: 93005; 99212 ==

== ENCOUNTER 2024-10-21 12:52 | Outpatient (REF) | payer MEDICARE, SELFPAY | END 2024-10-21 12:53 | disposition home or self-care (01) | LOC: HO.LAB 12:52 | PROVIDERS: PCP Internal Medicine; Visit Provider Internal Medicine | DX: Z00.00 Encounter for general adult medical examination without abnormal findings (principal); N39.0 Urinary tract infection, site not specified; G30.9 Alzheimer's disease, unspecified; F02.80 Dementia in other diseases classified elsewhere, unspecified severity, without behavioral disturbance, psychotic disturbance, mood disturbance, and anxiety; F32.0 Major depressive disorder, single episode, mild; R13.10 Dysphagia, unspecified; E78.5 Hyperlipidemia, unspecified; Z79.899 Other long term (current) drug therapy | CPT/HCPCS: 81003; 87086; 96127; 99212; 99397 ==

== ENCOUNTER 2024-10-21 12:52 | Outpatient (AMB) | payer MEDICARE, SELFPAY ==
[2024-10-21 13:15] VITALS: BP 136/80; BMI 28.7
--- NOTE | 2024-10-21 13:15 | MHC.PC.OV ---
Vital Signs 10/21/24 13:15 Height 5 ft 1 in Weight 152 lb BMI 28.7 BP 136/80 Blood Pressure Location Lt brachial Position Sitting Intake Visit Reasons: Annual Physical Intake Note: Patient here for an annual physical exam Medical Territory Manager Required: No Accompanied by: Son Allergies No Known Allergies [No Known Allergies*] Allergy (Verified 10/21/24 13:32) Medication List - Last Reconciled 10/21/24 by Alexia Taylor MD aspirin 81 mg PO DAILY atorvastatin 80 mg PO DAILY memantine 10 mg PO BID 90 days sertraline 50 mg PO DAILY Tobacco use date assessed: 02/25/24 Fall risk assessment: 2 + Falls in past year Last assessed Fall Risk: 10/21/24 Dental Screening Dental Screen Date: 10/21/24 Did you have a dental visit in the last 12 months?: No Did you have a dental problem in the last 6 months where you did not have access to dental care?: No Was dental information given to patient?: Patient has dentist HPI HPI Comments History of Present Illness Details The patient is a 74-year-old female presenting for her physical exam accompanied by son which is electric knife operator. Has difficulty swallowing medication, specifically atorvastatin 80 mg, which has been ongoing. The patient resides in an assisted living facility for individuals with dementia and has been unable to effectively swallow the medication, leading to a refusal to take it. Crushing the medication is not an option due to cost issues associated with the facility's policies. Alternative options such as altering medication forms were discussed due to the patient's struggles, which have reportedly worsened. Current medications include aspirin, memantine for dementia, and sertraline for depression, although it was unclear whether the latter is consistently consumed. Additionally, there is a noted inability to manage constipation medications due to facility charges. The patient's history includes a cardiac catheterization in 2015 and a hysterectomy in 2004. Family history notes dementia in a parent and cerebrovascular events in both parents. - Screening for hyperlipidemia with atorvastatin recently discontinued due to swallowing difficulties - Blood work indicated controlled conditions as of June 2023 - Discussion about discontinuing further colonoscopy screenings due to age [facility] Medical History Encounter to establish care COVID-19 Surgical History Hx of cardiac cath H/O: hysterectomy History of colonoscopy Family History (Updated 10/21/24 @ 13:41 by Alexia Taylor MD) Mother Stroke CAD (coronary artery disease) Father Alzheimer's dementia Social History (Updated 10/21/24 @ 13:41 by Alexia Taylor MD) Housing: House Alcohol intake: former Patient Tobacco Use Status: Former Tobacco user e-Cigarette/Vaping Use: Never Used Second Hand Smoke Exposure: No service: No Current occupational status: disabled Cognitive needs: No Hearing needs: No Vision needs: No Questionnaire PHQ-9 Over the last 2 weeks, how often have you been bothered by any of the following problems? 1. Little interest or pleasure in doing things: more than half the days 2. Feeling down, depressed, or hopeless: nearly every day 3. Trouble falling or staying asleep, or sleeping too much: more than half the days 4. Feeling tired or having little energy: more than half the days 5. Poor appetite or overeating: more than half the days 6. Feeling bad about yourself - or that you are a failure or have let yourself or your family down: more than half the days 7. Trouble concentrating on things, such as reading the newspaper or watching television: not at all 8. Moving or speaking so slowly that other people could have noticed. Or the opposite - being so fidgety or restless that you have been moving around a lot more than usual: more than half the days 9. Thoughts that you would be better off or of hurting yourself in some way: not at all Total score: 15 Depression Screening Interpretation: Positive (no suicidal thoughts) Depression Screening Follow-up: Existing condition, In treatment and Follow-up Visit Requested Depression Screening Done: Yes 08081 - PHQ-9 Billing: Yes Source: Developed by Drs. Catracho Santa, Rosario Ng, Cecil Bryson and colleagues, with an educational tiffany from [employer]. Thrive Questionnaire Date Thrive assessed: 10/21/24 I am a: Parent/Caregiver What is your living situation today?: I do not have a steady places to live I choose not to answer this question Within the past 12 months, did the food you bought not last and you didn't have the money to get more?: I choose not to answer this question Within the past 12 months, did you worry whether your food would run out before you got money to buy more?: Never true Do you have trouble paying for medicines?: No Do you have trouble getting transportation to medical appointments?: No Do you have trouble paying your heating and electricity bill?: No Do you have trouble taking care of your child, family member or friend?: No Do you have trouble with day-to-day activities such as bathing, preparing meals, shopping, managing finances, etc.?: No Are you currently unemployed and looking for a job?: No Are you interested in more education?: No Please select the resources that you would like help with: None Currently or been in a relationship where the following occur: I choose not to answer THRIVE Score: 1 AUDIT C Alcohol Use Questionnaire (AUDIT-C) 1. How often do you have a drink containing alcohol?: Never Total Score: 0 DEN-7 AMB Questionnaire DEN-7 Date DEN - 7 assessed: 10/21/24 Feeling nervous, anxious, or on edge: 3 = Nearly every day Not being able to stop or control worryin = Nearly every day Worrying too much about different things: 3 = Nearly every day Trouble relaxin = Nearly every day Being so restless that it is hard to sit still: 2 = More than half the days Becoming easily annoyed or irritable: 3 = Nearly every day Feeling afraid as if something awful might happen: 3 = Nearly every day Total DEN-7 score (0-4 normal; 5-9 mild; 10-14 moderate; 15-21 severe): 20 Source: Developed by Drs. Catracho Santa, Rosario Ng, Cecil Bryson and colleagues, with an educational tiffany from [employer]. DEN-7 Assessment Billing DEN-7 Assessment Tool: DEN-7 Assessment 41076 Review of Systems Const All systems reviewed & are unremarkable except as noted in HPI and below Card Denies chest pain at rest, Denies chest pain with activity, Denies edema, Denies irregular heart rhythm, Denies claudication, Denies dyspnea, Denies dyspnea on exertion, Denies orthopnea, Denies paroxysmal nocturnal dyspnea and Denies slow heart rate Resp Denies cough, Denies dyspnea and Denies dyspnea on exertion GI Denies abdominal pain, Denies change in bowel habits, Denies excessive flatus, Denies nausea and Denies vomiting Denies urinary incontinence, Denies urinary hesitancy and Denies urinary urgency Musc Denies atrophy, Denies deformity and Denies limited range of motion Skin/Breast Denies bleeding lesions, Denies changing lesions and Denies rash Physical exam (Primary Care) Vital Signs: Last Vital Signs BP 136/80 10/21/24 13:15 BMI result Body Mass Index 28.7 Tobacco/Smoking Status: Tobacco use Status Tobacco use date assessed 02/25/24 10/21/24 13:22 Patient Tobacco Use Status Former Tobacco user 10/21/24 13:41 e-Cigarette/Vaping Use Never Used 10/21/24 13:41 PHQ-9: PHQ-9 Score PHQ-9: Total score 15 10/21/24 14:08 Depression Screening Interpretation: Positive (no suicidal thoughts) Depression Screening Follow-up: Existing condition, In treatment and Follow-up Visit Requested Thrive Assessment: Date of Thrive Assessment Date Thrive assessed 10/21/24 10/21/24 13:22 Currently or been in a relationship where the following occur: I choose not to answer HENMT Head: Yes normal to inspection, Yes normocephalic and Yes atraumatic Ears: external ears normal Eyes General: appearance normal, both eyes and all related structures Eyelids: Yes eyelids normal Conjunctivae: conjunctivae normal Neck Neck: Yes normal visual inspection and Yes supple Resp Effort & Inspection: normal respiratory effort Auscultation: clear to auscultation bilaterally Cardio Jugular venous distension: no JVD Rate: regular rate Rhythm: regular rhythm Heart sounds: S1 normal heart sound present and S2 normal heart sound present GI Inspection: Yes normal to inspection Palpation (GI): Soft to palpation and nontender Auscultation: normal bowel sounds Skin General skin exam: no rashes or lesions noted Neuro General: no focal motor deficits Extrem General: Yes full ROM Psych Appearance: grossly normal Office Procedures Flu Questionnaire Does the patient have a severe egg allergy?: No Results AMB Urinalysis, Automated UA Leukoctes 3 Johnny/uL Last Edit by GIANNA Bhagat on 10/21/24 14:10 UA Nitrite Positive Last Edit by GIANNA Bhagat on 10/21/24 14:10 UA Urobilinogen 1 mg/dL Last Edit by Kushalmike Brown, RMA on 10/21/24 14:10 UA Protein 0 mg/dL Last Edit by Raysa Cumminsillo, RMA on 10/21/24 14:10 UA pH 6.0 Last Edit by Raysa Brown, RMA on 10/21/24 14:10 UA Blood 2 Mendel/uL Last Edit by Raysa Brown, RMA on 10/21/24 14:10 UA Specific [place] 1.025 Last Edit by Alexiafauziamike Brown, RMA on 10/21/24 14:10 UA Ketone Negative Last Edit by Alexiafauziamike Brown, RMA on 10/21/24 14:10 UA Bilirubin 0 mg/dL Last Edit by Raysa Cumminsillo, RMA on 10/21/24 14:10 UA Glucose 0 mg/dL Last Edit by Alexiaakira Brown, RMA on 10/21/24 14:10 Immunizations Fluarix Triv [id number] (PF) 45 mcg (15 mcg x 3)/0.5 mL IM syringe Performing Provider: Alexia Taylor MD [facility] Documented (not given) by: GIANNA Bhagat on 10/21/24 13:23 Reason Not Given: Patient Refused Results Reviewed Results Reviewed: Laboratory Last Values Urine pH (Auto) 6.0 10/21/24 14:08 Specific [place] (Auto) 1.025 10/21/24 14:08 Urine Protein (Auto) 0 mg/dL 10/21/24 14:08 Glucose (UA)(Auto) 0 mg/dL 10/21/24 14:08 Urine Ketones (Auto) Negative 10/21/24 14:08 Urine Blood (Auto) 2 Mendel/uL 10/21/24 14:08 Urine Nitrite (Auto) Positive 10/21/24 14:08 Urine Bilirubin (Auto) 0 mg/dL 10/21/24 14:08 Urine Urobilinogen (Auto) 1 mg/dL 10/21/24 14:08 Leukocyte Esterase (Auto) 3 Johnny/uL 10/21/24 14:08 Coding Level of Care Code Est Pt Level 3 (73795) Est Pt Prev Care >65y(55549) Diagnoses Physical exam Z00.00 UTI (urinary tract infection) N39.0 Alzheimer's disease, unspecified G30.9; F02.80 Mild major depression F32.0 Additional Codes DEN-7 Assessment Billing - DEN-7 Assessment Tool: DEN-7 Assessment 60715 ([id number]) PHQ-9 - 26083 - PHQ-9 Billing: Yes ([id number]) Assessment & Plan Assessment & Plan (1) Physical exam: Code(s): Z00.00 - Encounter for general adult medical examination without abnormal findings Category: Medical (2) UTI (urinary tract infection): Code(s): N39.0 - Urinary tract infection, site not specified Category: Medical (3) Alzheimer's disease, unspecified: Code(s): G30.9 - Alzheimer's disease, unspecified; F02.80 - Dementia in other diseases classified elsewhere, unspecified severity, without behavioral disturbance, psychotic disturbance, mood disturbance, and anxiety Category: Medical (4) Mild major depression: Code(s): F32.0 - Major depressive disorder, single episode, mild Category: Medical Plan - Dysphagia: Discontinue atorvastatin 80 mg and monitor cholesterol levels through regular blood work. Consider alternative administration forms, with focus on patient?s preferences and facility limitations. - Hyperlipidemia: Blood work to monitor cholesterol. If atorvastatin discontinuation causes clinically significant dyslipidemia, explore alternative medications that the patient can tolerate. - Dementia: Continue memantine 10 mg twice daily. - Depression: Maintain sertraline 50 mg, reevaluate in six months. Monitor emotional and behavioral symptoms closely. - Discuss family history of dementia and cerebrovascular disease to guide monitoring and prevention strategies. Patient was informed and verbally consented to the use of an ambient scribe for clinic note documentation during this visit. I discussed the patient's difficulty with swallowing atorvastatin and the decision to discontinue it given the impracticality of administration in the current living situation. Options were evaluated for changing the medication form, and the patient?s family was advised to monitor cholesterol levels through regular blood tests. I clarified the need for continued surveillance of emotional and cognitive health due to her dementia and depression. Continued use of sertraline was recommended, with future dosage adjustments to be considered based on clinical response. We acknowledged the patient's family history in our discussion as a factor in her healthcare strategy. I emphasized the importance of coordinated care and routine follow-ups to address any emergent health issues. Orders: Orders Influenza [id number] Immunization Today Z23 - Encounter for immunization Lipid Panel Today E78.5 - Hyperlipidemia, unspecified Comprehensive [place]. Panel Fast Today Z00.00 - Encounter for general adult medical examination without abnormal findings Urine Culture Today N39.0 - Urinary tract infection, site not specified AMB Urinalysis Automated Today N39.0 - Urinary tract infection, site not specified UA CC w/rflx Micro + Cult 6 Weeks R30.0 - Dysuria Medications: New levofloxacin 250 mg (10 mL) PO DAILY 30 mL 0RF 3 days N39.0 - Urinary tract infection, site not specified Refilled aspirin 81 mg PO DAILY 90 tabs 1RF I25.10 - Atherosclerotic heart disease of [place] coronary artery without angina pectoris, I25.2 - Old myocardial infarction sertraline 50 mg PO DAILY 90 tabs 3RF memantine 10 mg PO BID 180 tabs 1RF 90 days Discontinued atorvastatin Discontinued Reason: Order 80 mg PO DAILY 90 tabs 2RF E78.5 - Hyperlipidemia, unspecified Patient Instructions: - Discontinue atorvastatin 80 mg - Continue with current medications: aspirin, memantine, and sertraline - Monitor for any changes in cognitive function or emotional wellbeing - Ensure regular follow-up appointments for blood work to assess cholesterol levels and medication management - Communicate with family members regarding any health changes or immediate concerns - Utilize dry eye lubrication as needed for subconjunctival hemorrhage, expecting resolution without intervention - Arrange for urine analysis if signs of urinary infection persist
== END 2024-10-21 14:12 | disposition home or self-care (01) ==
PROVIDERS: PCP Internal Medicine; Visit Provider Internal Medicine
DX: Z00.00 Encounter for general adult medical examination without abnormal findings (principal); G30.9 Alzheimer's disease, unspecified; F02.80 Dementia in other diseases classified elsewhere, unspecified severity, without behavioral disturbance, psychotic disturbance, mood disturbance, and anxiety; F32.0 Major depressive disorder, single episode, mild; N39.0 Urinary tract infection, site not specified

== ENCOUNTER 2024-11-30 07:31 | Outpatient (REF) | payer MEDICARE, SELFPAY ==
[2024-11-30 07:54] LABS: MANUAL DIFF FLAG NO
[2024-11-30 08:17] LABS: Basophils Absolute Auto 0.1 X10*3/uL (0.0-0.2); Basophils Percent Auto 0.7 % (0-2); Eosinophils Absolute Auto 0.7 X10*3/uL (0.0-0.4); Eosinophils Percent Auto 9.9 % (0-4); Hematocrit 43.4 % (37.0-47.0); Hemoglobin 14.6 g/dl (12.0-16.0); Imm Gran Abs Auto 0.02 X10*3/uL (0.00-0.03); Imm Gran Pct Auto 0.3 % (0.0-0.4); Lymphocytes Absolute Auto 1.9 X10*3/uL (1.2-4.9); Lymphocytes Percent Auto 27.5 % (20-40); Mean Corpuscular HGB Conc 33.6 g/dl (31.0-35.0); Mean Corpuscular Hemoglobin 30.4 pg (27.0-33.0); Mean Corpuscular Volume 90.2 fL (80.0-98.0); Monocytes Absolute Auto 0.4 X10*3/uL (0.1-1.2); Monocytes Percent Auto 5.6 % (2-11); Neutrophils Absolute Auto 3.9 x10*3/uL (2.0-8.3); Platelet Count 218 X10*3/uL (160-400); Red Blood Count 4.81 X10*6/uL (4.20-5.50); Red Cell Distribution Width 12.7 % (11.0-16.0)
[2024-11-30 08:31] LABS: Appearance Urine Cloudy; Color Urine Yellow; Glucose Urine UA Negative (Negative); Leukocyte Esterase Urine Large (3+) (Negative); Nitrite Urine Positive (Negative); UMIC TRIGGER UACC YES; Urine Blood Small (1+) (Negative); Urine Ketones Negative (Negative); Urine Protein Negative (Neg-Trace)
[2024-11-30 08:44] LABS: Alanine Aminotransferase 41 U/L (0-31); Albumin Level 3.8 g/dL (3.5-5.0); Alkaline Phosphatase 106 U/L (39-117); Anion Gap 9 (12-20); Aspartate Amino Transferase 34 U/L (5-31); Bilirubin Total 0.7 mg/dL (0.0-1.0); Blood Urea Nitrogen 16 mg/dL (9-16); Calcium 9.1 mg/dL (8.4-10.2); Carbon Dioxide 28 mmol/L (22-29); Chloride 110 mmol/L (96-108); Cholesterol 192 mg/dL (<200); Estimated Glomerular Filt Rate > 60; Glucose Fasting 85 mg/dL (60-99); HDL Cholesterol 50 mg/dL (>40); LDL Cholesterol Calculated 128 mg/dL (<100); Sodium 143 mmol/L (135-145); Total Protein 6.6 g/dL (6.5-8.0); Triglycerides 74 mg/dL (<150)
[2024-11-30 08:47] LABS: Bacteria Urine 4+ (None Seen); Hyaline Casts Urine 0-2 /LPF (0-2); UACC Culture Trigger YES; WBC Urine >50 /HPF (0-5)
[2024-11-30 09:00] LABS: Vitamin D 25-OH Total 15.7 ng/mL (>30)
== END 2024-11-30 07:32 | disposition home or self-care (01) ==
LOC: HO.LAB 07:31
PROVIDERS: PCP Internal Medicine; Visit Provider Internal Medicine
DX: F03.90 Unspecified dementia, unspecified severity, without behavioral disturbance, psychotic disturbance, mood disturbance, and anxiety (principal); E55.9 Vitamin D deficiency, unspecified; E78.5 Hyperlipidemia, unspecified; R30.0 Dysuria
CPT/HCPCS: 36415; 80053; 80061; 81001; 81003; 82306; 85025; 87086; 87088; 87186

== ENCOUNTER 2025-01-11 11:50 | Outpatient (REF) | payer MEDICARE, SELFPAY ==
[2025-01-11 13:30] LABS: Appearance Urine Turbid; Color Urine Yellow; Glucose Urine UA Negative (Negative); Leukocyte Esterase Urine Large (3+) (Negative); Nitrite Urine Positive (Negative); Specific Gravity - Urine 1.025 (1.005-1.025); UMIC TRIGGER UACC YES; Urine Blood Trace (Negative); Urine Ketones Negative (Negative); Urine Protein 30 (1+) mg/dL (Neg-Trace)
[2025-01-11 13:36] LABS: Bacteria Urine 4+ (None Seen); Hyaline Casts Urine 0-2 /LPF (0-2); UACC Culture Trigger YES; WBC Urine >50 /HPF (0-5)
== END 2025-01-11 11:51 | disposition home or self-care (01) ==
LOC: HO.LNP 11:50
PROVIDERS: Visit Provider Internal Medicine
DX: R30.0 Dysuria (principal); B96.89 Other specified bacterial agents as the cause of diseases classified elsewhere
CPT/HCPCS: 81001; 81003; 87086; 87088; 87186

== ENCOUNTER 2025-02-08 14:54 | Outpatient (REF) | payer MEDICARE, SELFPAY ==
[2025-02-08 15:14] LABS: Appearance Urine Cloudy; Color Urine Dark Yellow; Glucose Urine UA Negative (Negative); Leukocyte Esterase Urine Negative (Negative); Nitrite Urine Negative (Negative); PH 5.5 (5.0-9.0); Specific Gravity - Urine >= 1.030 (1.005-1.025); UMIC TRIGGER UACC YES; Urine Blood Trace (Negative); Urine Ketones Trace mg/dL (Negative); Urine Protein Trace mg/dL (Neg-Trace)
[2025-02-08 15:23] LABS: Bacteria Urine Trace (None Seen); Calcium Oxalate Crystals Urine Present; Hyaline Casts Urine 0-2 /LPF (0-2); RBC Urine 0-2 /HPF (0-2); WBC Urine 0-5 /HPF (0-5)
== END 2025-02-08 14:55 | disposition home or self-care (01) ==
LOC: HO.LNP 14:54
PROVIDERS: Visit Provider Internal Medicine
DX: R45.1 Restlessness and agitation (principal)
CPT/HCPCS: 81001; 81003

== ENCOUNTER 2025-02-22 12:40 | Outpatient (AMB) | payer MEDICARE, SELFPAY ==
--- NOTE | 2025-02-22 12:56 | MHC.PC.OV ---
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 Required: No Accompanied by: Staff Allergies No Known Allergies [No Known Allergies*] Allergy (Verified 02/22/25 13:11) Medication List - Last Reconciled 02/22/25 by Alexia Taylor MD aspirin 81 mg PO DAILY cholecalciferol (vitamin D3) 50 mcg PO DAILY 90 days haloperidol 2 mg PO BID 30 days memantine 10 mg PO BID 90 days sertraline 50 mg PO DAILY Tobacco use date assessed: 02/22/25 Fall risk assessment: No Falls in past year Last assessed Fall Risk: 02/22/25 Dental Screening Dental Screen Date: 02/22/25 Did you have a dental visit in the last 12 months?: No Did you have a dental problem in the last 6 months where you did not have access to dental care?: No Was dental information given to patient?: Patient declined HPI HPI Comments History of Present Illness Details The patient is a 74-year-old female presenting with agitation, balance difficulties, and medication side effects following the initiation of haloperidol for management of agitation. She has a history of urinary tract infection in December, which resolved without need for further intervention after a negative follow-up urine test in January. The patient is currently on a regimen including sertraline and newly added haloperidol, which initially caused excessive tiredness and neuromuscular difficulties. The adjustment to haloperidol has been partially beneficial in decreasing agitation but has led to persistent balance and coordination difficulties. Musculoskeletal pain and joint soreness, along with constipation and recent hematochezia, are of concern, though notably, constipation issues had partially improved with medication. The dosing has added complications, including her preference to chew pills to aid with swallowing. Overall, the issues seemed to progress recently, culminating in significant sleep disturbances, especially on more stressful or stimulating days. On sertraline for her depression. She does have Alzheimer's disease and will be refer again to Neurology. Also has splenic artery aneurysm that was follow by vascular surgery. Due to her dementia I will hold GI referral for now for hematochezia. [facility] Medical History (Updated 02/22/25 @ 14:34 by Alexia Taylor MD) Dementia Alzheimer's disease, unspecified Encounter to establish care COVID-19 Surgical History Hx of cardiac cath H/O: hysterectomy History of colonoscopy Family History Mother Stroke CAD (coronary artery disease) Father Alzheimer's dementia Social History Housing: House Alcohol intake: former Patient Tobacco Use Status: Former Tobacco user e-Cigarette/Vaping Use: Never Used Second Hand Smoke Exposure: No service: No Current occupational status: disabled Cognitive needs: No Hearing needs: No Vision needs: No Questionnaire PHQ-9 Over the last 2 weeks, how often have you been bothered by any of the following problems? 1. Little interest or pleasure in doing things: not at all 2. Feeling down, depressed, or hopeless: not at all 3. Trouble falling or staying asleep, or sleeping too much: not at all 4. Feeling tired or having little energy: not at all 5. Poor appetite or overeating: not at all 6. Feeling bad about yourself - or that you are a failure or have let yourself or your family down: not at all 7. Trouble concentrating on things, such as reading the newspaper or watching television: not at all 8. Moving or speaking so slowly that other people could have noticed. Or the opposite - being so fidgety or restless that you have been moving around a lot more than usual: not at all 9. Thoughts that you would be better off or of hurting yourself in some way: not at all Total score: 0 Depression Screening Interpretation: Negative Depression Screening Done: Yes 35826 - PHQ-9 Billing: Yes Source: Developed by Drs. Catracho Santa, Rosario Ng, Cecil Bryson and colleagues, with an educational tiffany from [employer]. Thrive Questionnaire Date Thrive assessed: 02/22/25 I am a: Parent/Caregiver What is your living situation today?: I do not have a steady places to live I choose not to answer this question Within the past 12 months, did the food you bought not last and you didn't have the money to get more?: I choose not to answer this question Within the past 12 months, did you worry whether your food would run out before you got money to buy more?: Never true Do you have trouble paying for medicines?: No Do you have trouble getting transportation to medical appointments?: No Do you have trouble paying your heating and electricity bill?: No Do you have trouble taking care of your child, family member or friend?: No Do you have trouble with day-to-day activities such as bathing, preparing meals, shopping, managing finances, etc.?: No Are you currently unemployed and looking for a job?: No Are you interested in more education?: No Please select the resources that you would like help with: None Currently or been in a relationship where the following occur: I choose not to answer THRIVE Score: 1 AUDIT C Alcohol Use Questionnaire (AUDIT-C) 1. How often do you have a drink containing alcohol?: Never Total Score: 0 Score Reviewed/Action Taken: No DEN-7 AMB Questionnaire DEN-7 Date DEN - 7 assessed: 02/22/25 Feeling nervous, anxious, or on edge: 0 = Not at all Not being able to stop or control worryin = Not at all Worrying too much about different things: 0 = Not at all Trouble relaxin = Not at all Being so restless that it is hard to sit still: 0 = Not at all Becoming easily annoyed or irritable: 0 = Not at all Feeling afraid as if something awful might happen: 0 = Not at all Total DEN-7 score (0-4 normal; 5-9 mild; 10-14 moderate; 15-21 severe): 0 Source: Developed by Drs. Catracho Santa, Rosario Ng, Cecil Bryson and colleagues, with an educational tiffany from [employer]. DEN-7 Assessment Billing DEN-7 Assessment Tool: DEN-7 Assessment 97822 Review of Systems Const All systems reviewed & are unremarkable except as noted in HPI and below Card Denies chest pain at rest, Denies chest pain with activity, Denies edema, Denies irregular heart rhythm, Denies claudication, Denies dyspnea, Denies dyspnea on exertion, Denies orthopnea, Denies paroxysmal nocturnal dyspnea and Denies slow heart rate Resp Denies cough, Denies dyspnea and Denies dyspnea on exertion GI Denies abdominal pain, Denies change in bowel habits, Denies excessive flatus, Denies nausea and Denies vomiting Denies urinary incontinence, Denies urinary hesitancy and Denies urinary urgency Neuro Denies lack of coordination Physical exam (Primary Care) Vital Signs: Last Vital Signs BP 132/76 02/22/25 13:00 BMI result Body Mass Index 27.6 Tobacco/Smoking Status: Tobacco use Status Tobacco use date assessed 02/22/25 02/22/25 13:07 Patient Tobacco Use Status Former Tobacco user 02/22/25 12:57 e-Cigarette/Vaping Use Never Used 02/22/25 12:57 PHQ-9: PHQ-9 Score PHQ-9: Total score 0 02/22/25 13:12 Depression Screening Interpretation: Negative Thrive Assessment: Date of Thrive Assessment Date Thrive assessed 02/22/25 02/22/25 12:57 Currently or been in a relationship where the following occur: I choose not to answer Resp Effort & Inspection: normal respiratory effort Auscultation: clear to auscultation bilaterally Cardio Jugular venous distension: no JVD Rate: regular rate Rhythm: regular rhythm Heart sounds: S1 normal heart sound present and S2 normal heart sound present Extrem General: Yes full ROM Coding Level of Care Code Est Pt Level 4 (68783) Complex EM visit Add On G2211 Diagnoses Mild major depression F32.0 Behavioral disturbance due to late onset Alzheimer dementia G30.1; F02.818 Rectal bleeding K62.5 Splenic artery aneurysm I72.8 Additional Codes DEN-7 Assessment Billing - DEN-7 Assessment Tool: DEN-7 Assessment 11060 ([id number]) PHQ-9 - 36049 - PHQ-9 Billing: Yes ([id number]) Time Spent (min) 23 Assessment & Plan Assessment & Plan (1) Mild major depression: Code(s): F32.0 - Major depressive disorder, single episode, mild Category: Medical (2) Behavioral disturbance due to late onset Alzheimer dementia: Code(s): G30.1 - Alzheimer's disease with late onset; F02.818 - Dementia in other diseases classified elsewhere, unspecified severity, with other behavioral disturbance Category: Medical (3) Rectal bleeding: Code(s): K62.5 - Hemorrhage of anus and rectum Category: Medical (4) Splenic artery aneurysm: Comment: 03/2023 CT/CT abdomen pelvis w IV con IMPRESSION: No acute finding. 8 mm distal splenic artery aneurysm, not significantly changed compared with 2018. Additional findings, as above. Code(s): I72.8 - Aneurysm of other specified arteries Category: Medical Plan The management plan includes adjusting her current medications to balance the treatment benefits and side effects, specifically considering decreasing haloperidol if further balance issues are noted. We will proceed with a referral to psychiatric services to evaluate current psychiatric medications and potential alternative treatments for the management of insomnia and agitation. Constipation management will continue, monitoring for any further gastrointestinal symptoms, like bleeding. Regular monitoring of her condition will continue to gauge effectiveness and tolerance, with careful observation of any new neurological symptoms. Encouraging controlled social interaction within her community is advised to support her emotional needs. Patient was informed and verbally consented to the use of an ambient scribe for clinic note documentation during this visit. I discussed with the patient and her care provider the importance of monitoring both the effectiveness and side effects of haloperidol, with a referral to psychiatric services for enhanced management of her agitation and sleep issues. We reviewed her recent insomnia episode, constipation, gastrointestinal bleeding, and musculoskeletal discomfort, emphasizing the importance of continuing observation and management to minimize the impact of these issues on her daily activities and quality of life. Reassurance was provided about her neurological evaluation and psychiatric appointment. Orders: Referrals Psychiatry Outpatient Consultation Service F02.818 - Dementia in other diseases classified elsewhere, unspecified severity, with other behavioral disturbance, F32.0 - Major depressive disorder, single episode, mild, G30.1 - Alzheimer's disease with late onset Neurology Referral F02.818 - Dementia in other diseases classified elsewhere, unspecified severity, with other behavioral disturbance, G30.1 - Alzheimer's disease with late onset Patient Instructions: - Continue current medications as prescribed, unless advised otherwise. - Monitor balance and report any worsening. - Schedule an appointment with Psychiatric services for further assessment. - Continue stool softeners to manage constipation. - Report any new bleeding with bowel movements or associated symptoms. - Engage in calm social activities and avoid overstimulation. - Keep all scheduled follow-up appointments and consultations. - Report any new or worsening physical symptoms promptly.
[2025-02-22 13:00] VITALS: BP 132/76; BMI 27.6
== END 2025-02-22 13:29 | disposition home or self-care (01) ==
LOC: HO.HMCH 12:41
PROVIDERS: PCP Internal Medicine; Visit Provider Internal Medicine
DX: F32.0 Major depressive disorder, single episode, mild (principal); G30.1 Alzheimer's disease with late onset; F02.818 Dementia in other diseases classified elsewhere, unspecified severity, with other behavioral disturbance; K62.5 Hemorrhage of anus and rectum; I72.8 Aneurysm of other specified arteries

== ENCOUNTER → 2025-02-22 12:40 | Outpatient (BNVA) | payer MEDICARE, SELFPAY | PROVIDERS: PCP Internal Medicine; Visit Provider Internal Medicine | DX: G30.1 Alzheimer's disease with late onset (principal); F02.818 Dementia in other diseases classified elsewhere, unspecified severity, with other behavioral disturbance; F32.0 Major depressive disorder, single episode, mild; K62.5 Hemorrhage of anus and rectum; I72.8 Aneurysm of other specified arteries | CPT/HCPCS: 96127; 99212 ==

== ENCOUNTER 2025-03-04 11:21 | Outpatient (AMB) | payer MEDICARE, SELFPAY ==
[2025-03-04 11:22] VITALS: BP 122/78; PULSE 76; O2SAT 96; BMI 28.2
--- NOTE | 2025-03-04 11:22 | A.OFFVIS_ITS ---
Vital Signs 03/04/25 11:22 Height 5 ft 1 in Weight 149 lb BMI 28.2 BP 122/78 Blood Pressure Location Rt brachial Position Sitting Pulse 76 Pulse Source Pulse Oximeter Pulse Oximetry (%) 96 Oxygen Delivery Method Room Air Intake Visit Reasons: INP-Alzheimers Intake Note: Patient referred in house Dr. Contreras for behavioral disturbances due to late on set alzheimers Accompanied by: Son Allergies No Known Allergies [No Known Allergies*] Allergy (Verified 03/04/25 11:28) HPI Comments Details: 74y/o female with dementia comes for behaviorla issues related to advanced demnetia.. diagnosed her in 2020 with dementia . she started having co gnitive issues in 2019.she had difficulty driving some hallucinations paranoia etc. she is in a memory care unit now. she was started on haloperidol for aggressive behavior, irritability by her PCP. she was started on 2 mg bid but she starte dhaving falls so her dose was decreased to 1mg bid and she is better. she is dependant on all her ADLS. [facility] Medical History (Updated 03/04/25 @ 11:50 by Allyssa Randolph MD) Alzheimer's dementia with behavioral disturbance Dementia Alzheimer's disease, unspecified Encounter to establish care COVID-19 Surgical History Hx of cardiac cath H/O: hysterectomy History of colonoscopy Family History Mother Stroke CAD (coronary artery disease) Father Alzheimer's dementia Social History Housing: House Alcohol intake: former Patient Tobacco Use Status: Former Tobacco user e-Cigarette/Vaping Use: Never Used Second Hand Smoke Exposure: No service: No Current occupational status: disabled Cognitive needs: No Hearing needs: No Vision needs: No Review of Systems Neuro Reports confusion Psych Reports confusion Physical Exam Vital Signs: Last Vital Signs Pulse 76 03/04/25 11:22 BP 122/78 03/04/25 11:22 Pulse Ox 96 03/04/25 11:22 Oxygen Delivery Method Room Air 03/04/25 11:22 BMI result Body Mass Index 28.2 Const General: cooperative, healthy appearing and confusion Nutritional Appearance: average body habitus Orientation/consciousness: confusion Neuro Other: confused Unable to do MMSE- confabulates- answers some quetsions - unable to comprehend walks holding her son's hand - small steps stooped General: moves all extremities and confusion Cranial nerves: Yes Nystagmus not present and Yes Normal facial strength present Cognition (Neuro): abnormal cognition Deep tendon reflexes (DTR's): Right triceps reflex intensity grade: 1+, Left triceps reflex intensity grade: 1+, Rt Biceps (C5, C6): 1+, Left biceps reflex intensity grade: 1+, Right brachioradialis reflex intensity grade: 1+, Left brachioradialis reflex intensity grade: 1+, Right patellar reflex intensity grade: 1+ and Left patellar reflex intensity grade: 1+ Assessment & Plan Assessment & Plan (1) Alzheimer's dementia with behavioral disturbance: Code(s): G30.9 - Alzheimer's disease, unspecified; F02.818 - Dementia in other diseases classified elsewhere, unspecified severity, with other behavioral disturbance Category: Medical Plan Needs supportive care Continue haloperidol 1mg bid Info on patient portal given to son . Patient's son will contact if her behavior worsens. f/u as needed Coding Level of Care Code New Pt Level 4 (43092) Diagnoses Alzheimer's dementia with behavioral disturbance G30.9; F02.818
== END 2025-03-04 12:20 | disposition home or self-care (01) ==
LOC: HO.HSMS 11:22
PROVIDERS: PCP Internal Medicine; Visit Provider Psychiatry & Neurology Neurology
DX: G30.9 Alzheimer's disease, unspecified (principal); F02.818 Dementia in other diseases classified elsewhere, unspecified severity, with other behavioral disturbance
CPT/HCPCS: 99204

== ENCOUNTER → 2025-03-04 11:21 | Outpatient (BNVA) | payer MEDICARE, SELFPAY | PROVIDERS: PCP Internal Medicine; Visit Provider Psychiatry & Neurology Neurology | DX: G30.9 Alzheimer's disease, unspecified (principal); F02.818 Dementia in other diseases classified elsewhere, unspecified severity, with other behavioral disturbance | CPT/HCPCS: 99202 ==

== ENCOUNTER 2025-04-26 10:42 | Outpatient (AMB) | payer MEDICARE, SELFPAY ==
--- NOTE | 2025-04-26 10:46 | MHC.PC.OV ---
Vital Signs 04/26/25 10:47 Height 5 ft 1 in Weight 136 lb BMI 25.7 BP 110/82 Blood Pressure Location Lt brachial Position Sitting Intake Visit Reasons: depression Intake Note: Patient here for a follow up Depression Acquisitions Librarian Required: No Accompanied by: physician assistant surgery Allergies No Known Allergies [No Known Allergies*] Allergy (Verified 04/26/25 10:56) Medication List - Last Reconciled 04/26/25 by Alexia Taylor MD aspirin 81 mg PO DAILY atorvastatin 80 mg PO DAILY cholecalciferol (vitamin D3) 50 mcg PO DAILY 90 days memantine 10 mg PO BID 90 days risperidone mg PO sertraline 50 mg PO DAILY Tobacco use date assessed: 02/22/25 Fall risk assessment: No Falls in past year Last assessed Fall Risk: 04/26/25 Dental Screening Dental Screen Date: 02/22/25 HPI HPI Comments History of Present Illness Details The patient is a 74-year-old female presenting with medication management and evaluation of recurrent UTIs and depressive symptoms. She experiences recurrent UTIs and her depressive symptoms show a high severity with a PHQ-9 score of 20. Her condition involves notable dementia and a reduced weight and appetite condition, further complicating her overall health state. Recent changes in medication regimens include adjustments to Haldol dosage which initially led to loss of balance, an issue now resolved after discontinuation. Medications like sertraline are being titrated upwards to 100 mg to address these depressive symptoms. Historically, under home care, the application of vaginal cream effectively reduced UTI frequency; however, in the current nursing facility setting, this treatment approach is discontinued, leading to a recurrence of UTIs. Also has splenic artery aneurysm that has not changed since 2018. She does have some insomnia and is on Risperdal. [facility] Medical History (Updated 04/26/25 @ 11:48 by Alexia Taylor MD) 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 Dementia Alzheimer's disease, unspecified Encounter to establish care COVID-19 Surgical History Hx of cardiac cath H/O: hysterectomy History of colonoscopy Family History Mother Stroke CAD (coronary artery disease) Father Alzheimer's dementia Social History Housing: House Alcohol intake: former Patient Tobacco Use Status: Former Tobacco user e-Cigarette/Vaping Use: Never Used Second Hand Smoke Exposure: No service: No Current occupational status: disabled Cognitive needs: No Hearing needs: No Vision needs: No Questionnaire PHQ-9 Over the last 2 weeks, how often have you been bothered by any of the following problems? 1. Little interest or pleasure in doing things: nearly every day 2. Feeling down, depressed, or hopeless: more than half the days 3. Trouble falling or staying asleep, or sleeping too much: nearly every day 4. Feeling tired or having little energy: several days 5. Poor appetite or overeating: several days 6. Feeling bad about yourself - or that you are a failure or have let yourself or your family down: several days 7. Trouble concentrating on things, such as reading the newspaper or watching television: nearly every day 8. Moving or speaking so slowly that other people could have noticed. Or the opposite - being so fidgety or restless that you have been moving around a lot more than usual: nearly every day 9. Thoughts that you would be better off or of hurting yourself in some way: nearly every day Total score: 20 Depression Screening Interpretation: Positive Depression Screening Follow-up: Existing condition, In treatment and Follow-up Visit Requested Depression Screening Done: Yes 97152 - PHQ-9 Billing: Yes Source: Developed by Drs. Catracho Santa, Rosario Ng, Cecil Bryson and colleagues, with an educational tiffany from [employer]. Thrive Questionnaire Date Thrive assessed: 04/26/25 I am a: Parent/Caregiver What is your living situation today?: I have a steady place to live Within the past 12 months, did the food you bought not last and you didn't have the money to get more?: Never true Within the past 12 months, did you worry whether your food would run out before you got money to buy more?: Never true Do you have trouble paying for medicines?: No Do you have trouble getting transportation to medical appointments?: No Do you have trouble paying your heating and electricity bill?: No Do you have trouble taking care of your child, family member or friend?: No Do you have trouble with day-to-day activities such as bathing, preparing meals, shopping, managing finances, etc.?: Yes Are you currently unemployed and looking for a job?: No Are you interested in more education?: No Please select the resources that you would like help with: None Currently or been in a relationship where the following occur: I choose not to answer THRIVE Score: 0 AUDIT C Alcohol Use Questionnaire (AUDIT-C) 1. How often do you have a drink containing alcohol?: Never Total Score: 0 Score Reviewed/Action Taken: No DEN-7 AMB Questionnaire DEN-7 Date DEN - 7 assessed: 04/26/25 Feeling nervous, anxious, or on edge: 2 = More than half the days Not being able to stop or control worryin = More than half the days Worrying too much about different things: 2 = More than half the days Trouble relaxin = More than half the days Being so restless that it is hard to sit still: 2 = More than half the days Becoming easily annoyed or irritable: 2 = More than half the days Feeling afraid as if something awful might happen: 2 = More than half the days Total DEN-7 score (0-4 normal; 5-9 mild; 10-14 moderate; 15-21 severe): 14 Source: Developed by Drs. Catracho Santa, Rosario Ng, Cecil Bryson and colleagues, with an educational tiffany from [employer]. DEN-7 Assessment Billing DEN-7 Assessment Tool: DEN-7 Assessment 47298 Review of Systems Const All systems reviewed & are unremarkable except as noted in HPI and below Card Denies chest pain at rest, Denies chest pain with activity, Denies edema, Denies irregular heart rhythm, Denies claudication, Denies dyspnea, Denies dyspnea on exertion, Denies orthopnea, Denies paroxysmal nocturnal dyspnea and Denies slow heart rate Resp Denies cough, Denies dyspnea and Denies dyspnea on exertion GI Denies abdominal pain, Denies change in bowel habits, Denies excessive flatus, Denies nausea and Denies vomiting Denies urinary incontinence, Denies urinary hesitancy and Denies urinary urgency Musc Denies abnormal gait, Denies atrophy, Denies deformity and Denies limited range of motion Skin/Breast Denies bleeding lesions, Denies changing lesions and Denies rash Neuro Denies abnormal gait, Denies behavioral changes and Denies lack of coordination Psych Denies behavioral changes Physical exam (Primary Care) Vital Signs: Last Vital Signs BP 110/82 04/26/25 10:47 BMI result Body Mass Index 25.7 Tobacco/Smoking Status: Tobacco use Status Tobacco use date assessed 02/22/25 04/26/25 10:55 Patient Tobacco Use Status Former Tobacco user 04/26/25 10:55 e-Cigarette/Vaping Use Never Used 04/26/25 10:55 PHQ-9: PHQ-9 Score PHQ-9: Total score 20 04/26/25 11:11 Depression Screening Interpretation: Positive Depression Screening Follow-up: Existing condition, In treatment and Follow-up Visit Requested Thrive Assessment: Date of Thrive Assessment Date Thrive assessed 04/26/25 04/26/25 10:55 Currently or been in a relationship where the following occur: I choose not to answer Resp Effort & Inspection: normal respiratory effort Auscultation: clear to auscultation bilaterally Cardio Jugular venous distension: no JVD Rate: regular rate Rhythm: regular rhythm Heart sounds: S1 normal heart sound present and S2 normal heart sound present Extrem General: Yes full ROM Coding Level of Care Code Est Pt Level 4 (04753) Complex EM visit Add On G2211 Diagnoses Alzheimer's dementia with behavioral disturbance G30.9; F02.818 Severe recurrent major depression F33.2 Recurrent UTI N39.0 Splenic artery aneurysm I72.8 Insomnia G47.00 Additional Codes DEN-7 Assessment Billing - DEN-7 Assessment Tool: DEN-7 Assessment 18713 ([id number]) PHQ-9 - 57120 - PHQ-9 Billing: Yes ([id number]) Time Spent (min) 23 Assessment & Plan Assessment & Plan (1) Alzheimer's dementia with behavioral disturbance: Code(s): G30.9 - Alzheimer's disease, unspecified; F02.818 - Dementia in other diseases classified elsewhere, unspecified severity, with other behavioral disturbance Category: Medical (2) Severe recurrent major depression: Code(s): F33.2 - Major depressive disorder, recurrent severe without psychotic features Category: Medical (3) Recurrent UTI: Code(s): N39.0 - Urinary tract infection, site not specified Category: Medical (4) Splenic artery aneurysm: Comment: 03/2023 CT/CT abdomen pelvis w IV con IMPRESSION: No acute finding. 8 mm distal splenic artery aneurysm, not significantly changed compared with 2018. Additional findings, as above. Code(s): I72.8 - Aneurysm of other specified arteries Category: Medical (5) Insomnia: Code(s): G47.00 - Insomnia, unspecified Category: Medical Plan The sertraline dosage for severe depressive disorder is increased to 100 mg to manage the notable symptoms seen in the patient. Memantine continues to aid cognitive symptoms, while past ineffective doses of Haldol were ceased to address previous adverse effects on balance. A low-dose antibiotic is added at bedtime, considering her history of recurrent UTIs, while ongoing care will focus on monitoring depressive symptoms, nutrition, weight and the potential effects of changed medication doses. Preventive care adjustments are made with the recognition of previous successful interventions and current facility-based limitations. Patient was informed and verbally consented to the use of an ambient scribe for clinic note documentation during this visit. I discussed with the patient and caregivers that her depressive symptoms, denoted by a severe PHQ-9 score of 20, warrant increasing her sertraline dosage gradually up to 100 mg to observe its efficacy on appetite and overall mood. The potential preventive impact of once-daily antibiotics is explained, aiming to mitigate recurring UTIs, influenced by her environment's limitations in providing previous vaginal cream applications. Regular follow-ups are advised to monitor both her depressive symptoms and the status of UTIs, considering the redundancy of previous treatments in her fpc setting. The patient and caregivers are advised to return if any further complications arise, or for any needed adjustments in care. Medications: New sertraline 100 mg PO DAILY 90 tabs 1RF 90 days nitrofurantoin macrocrystal must administer with a meal/food 50 mg PO BEDTIME 90 caps 1RF 90 days Discontinued sertraline Discontinued Reason: Patient Completed Course 50 mg PO DAILY 90 tabs 11RF Patient Instructions: - Continue taking sertraline as increased. - Start the new antibiotic at bedtime for UTI prevention. - Report any changes in health, mood, or balance to caregivers or nurses. - Ensure proper hygiene and regular change of pull-ups. - Follow up in October or sooner if needed.
[2025-04-26 10:47] VITALS: BP 110/82; BMI 25.7
== END 2025-04-26 11:11 | disposition home or self-care (01) ==
LOC: HO.HMCH 10:43
PROVIDERS: PCP Internal Medicine; Visit Provider Internal Medicine
DX: G30.9 Alzheimer's disease, unspecified (principal); F02.818 Dementia in other diseases classified elsewhere, unspecified severity, with other behavioral disturbance; F33.2 Major depressive disorder, recurrent severe without psychotic features; N39.0 Urinary tract infection, site not specified; I72.8 Aneurysm of other specified arteries; G47.00 Insomnia, unspecified

== ENCOUNTER → 2025-04-26 10:42 | Outpatient (BNVA) | payer MEDICARE, SELFPAY | PROVIDERS: PCP Internal Medicine; Visit Provider Internal Medicine | DX: G30.9 Alzheimer's disease, unspecified (principal); F02.818 Dementia in other diseases classified elsewhere, unspecified severity, with other behavioral disturbance; F33.2 Major depressive disorder, recurrent severe without psychotic features; N39.0 Urinary tract infection, site not specified; G47.00 Insomnia, unspecified; I72.8 Aneurysm of other specified arteries | CPT/HCPCS: 96127; 99212 ==

== ENCOUNTER 2025-07-21 10:17 | Emergency (ER) | payer MEDICARE, SELFPAY ==
[2025-07-21 10:21] VITALS: BP 141/68; PULSE 68; RESP 18; TEMP 36.6; O2SAT 98; BMI 30.3
--- NOTE | 2025-07-21 10:25 | ED_ITS ---
HPI - General Adult General Chief complaint: Vaginal Bleeding Stated complaint: vaginal bleeding Time Seen by Provider: 07/21/25 10:49 Source: patient, family, RN notes reviewed and old records reviewed Mode of arrival: ambulatory Limitations: altered mental status History of Present Illness ED Provider: Siomara Rocha PA-C HPI narrative: 74-year-old female with history of dementia presenting to the emergency department today arriving from assisted living facility brought in by her son for concerns of vaginal bleeding. This past weekend staff at the assisted living facility reported that they noticed some vaginal bleeding soaking through her depends. It did not look like it was coming from her urethra to them. She was treated 1 week ago for urinary tract infection. They notified the son who brought her here. Patient's son reports that patient never really reports any pain as she does not verbalize her needs as much. She has not had any falls or trauma. To the best of her son's knowledge she no longer has her uterus. Patient is a fdc care patient of the memory care unit at [facility] in [place]. Prior to this used to be [facility]. Related Data Home Medications ?Medication ?Instructions ?Recorded ?Confirmed atorvastatin 80 mg tablet 80 mg PO DAILY 03/04/2508/12 risperidone 0.25 mg tablet mg PO 04/26/25 04/26/25 Previous Rx's ?Medication ?Instructions ?Recorded cholecalciferol (vitamin D3) 50 50 mcg PO DAILY 90 day s #90 caps 01/14/25 mcg (2,000 unit) capsule memantine 10 mg tablet 10 mg PO BID 90 days #180 ta bs 01/14/25 nitrofurantoin macrocrystal 50 mg 50 mg PO BEDTIME 90 days #90 caps 04/26/25 capsule nitrofurantoin 50 mg/5 mL oral 50 mg (5 mL) PO BEDTIME 30 days 04/27/25 suspension #150 mL sertraline 100 mg tablet 100 mg PO DAILY 90 days #90 tabs 05/10/25 nystatin 100,000 unit/gram topical 1 appl topical BID PRN rash 30 06/22/25 cream days #30 grams docusate sodium 100 mg capsule 100 mg PO BID PRN const ipation 30 07/01/25 days #60 caps nystatin 100,000 unit/gram topical 1 appl topical SABAS Y 2 weeks #30 07/05/25 powder grams aspirin 81 mg tablet,delayed 81 mg PO DAILY #90 tabs 0 07/12/25 release estradiol 0.01% (0.1 mg/gram) 1 appful vaginal DAILY # 42.5 grams 07/21/25 vaginal cream (Estrace) Allergies Allergy/AdvReac Type Severity Reaction Status Date / Time No Known Allergies (No Known Allergy Verified 07/21/25 10:24 Allergies*) Review of Systems 2 Review of Systems: Yes Unobtainable due to mental condition PMFSH Past Medical History Attestation statement: The following information was validated with the patient. Source: old records reviewed, obtained from family and nursing notes reviewed Medical History 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 Dementia Alzheimer's disease, unspecified Encounter to establish care COVID-19 Surgical History Hx of cardiac cath H/O: hysterectomy History of colonoscopy Family History Family History Mother Stroke CAD (coronary artery disease) Father Alzheimer's dementia Social History Social History Housing: House Alcohol intake: former Patient Tobacco Use Status: Former Tobacco user e-Cigarette/Vaping Use: Never Used Second Hand Smoke Exposure: No service: No Current occupational status: disabled Cognitive needs: No Hearing needs: No Vision needs: No Physical Exam ED Exam Exam: Vital Signs: Vital Signs - 24 hr 07/21/25 10:21 Temperature 97.9 F Pulse Rate 68 Respiratory Rate 18 Blood Pressure 141/68 H Pulse Oximetry 98 Oxygen Delivery Method Room Air BMI result Body Mass Index 30.3 General: Appears in no acute distress, appears well nourished body habitus is overweight, appears stated age. No septic or ill-appearing. Vitals reviewed normal, PMH/Social and Surgical hx reviewed including allergies and current medications. Patient with baseline altered mental status oriented to self and son only Head: Normocephalic, no obvious trauma or skin lesions noted. Eyes: EOMI no scleral icterus ENMT: moist oral mucosa Neck: trachea midline Cardiovascular: peripheral perfusion normal, Regular heart rate regular rhythm Respiratory: no respiratory distress lungs clear Abdomen: nondistended nontender see image above for mass Extremities: warm and moving without difficulty Psych: Cooperative Neuro: Alert Course Course Course Narrative: This is a Rapid Medical Examination (RME) performed by Param Ayoub PA-C in triage. Full HPI, ROS, assessment and treatment plan per primary provider in the Main ED. Hx: 74 yo F here w/ son from [facility] for eval of heavy vaginal bleeding w/ clots x24 hours. no thinners. Plan: labs Medical Decision Making Medical Decision Making [facility] Narrative: 74-year-old female presenting to emergency department today for complaints of vaginal bleeding via staff at her long-term care facility and son. Past medical history significant for GERD. Patient has [facility] sig for hysterectomy. In physical exam there is a mass that looks like it was affixed to her lateral anterior vaginal wall we had to push this down to straight catheter. Gynecology Dr. Peyton olivares was consulted he was able to see patient on exam and determined that the mass is actually affixed to the bottom of the urethra he recommended consulting with Urology. Urology was then consulted spoke to Dr. Tamayo who stated that it is a big carbuncle he recommended starting Estrace cream daily and that they would follow up with her outpatient. Labs reassuring no leukocytosis or anemia. There is no JOSE CARLOS or significant metabolic derangement. No UTI. At this point patient did not meet any level for admission criteria and will be discharged to home with care to plan for urology follow up outpatient Differential Diagnosis Differential Diagnoses: The differential diagnosis associated with the presentation includes genital mass UTI herniation Admission/Observation Consideration of admission/observation: Escalation of care including admission/observation considered Consult Healthcare Provider Management of the patient was discussed with: Analysis Or Research Safety Inspector Lab Data [facility] Lab Attestation statement: I reviewed the patient's lab results. 07/21/25 10:33 07/21/25 10:33 Labs: Lab Results 07/21/25 07/21/25 Range/Units 10:33 11:42 WBC 8.3 (4.8-10.8) X10*3/uL RBC 4.70 (4.20-5.50) X10*6/uL Hgb 14.9 (12.0-16.0) g/dl Hct 43.0 (37.0-47.0) % MCV 91.5 (80.0-98.0) fL MCH 31.7 (27.0-33.0) pg MCHC 34.7 (31.0-35.0) g/dl RDW 12.3 (11.0-16.0) % Plt Count 243 (160-400) X10*3/uL MPV 9.1 L (9.4-12.3) fL Immature Gran % (Auto) 0.4 (0.0-0.4) % Neut % (Auto) 69.1 (45-73) % Lymph % (Auto) 22.1 (20-40) % [place] % (Auto) 5.2 (2-11) % Eos % (Auto) 2.8 (0-4) % Baso % (Auto) 0.4 (0-2) % Lymph # (Auto) 1.8 (1.2-4.9) X10*3/uL [place] # (Auto) 0.4 (0.1-1.2) X10*3/uL Eos # (Auto) 0.2 (0.0-0.4) X10*3/uL Baso # (Auto) 0.0 (0.0-0.2) X10*3/uL Abs Immat Gran (auto) 0.03 (0.00-0.03) X10*3/uL Absolute Neuts (auto) 5.8 (2.0-8.3) x10*3/uL Absolute Nucleated RBC 0.000 (0.0-0.012) X10*3/uL Nucleated RBC % (auto) 0.0 (0.0-0.2) /100WBC Sodium 142 (135-145) mmol/L Potassium 4.1 (3.3-5.1) mmol/L Chloride 108 (96-108) mmol/L Carbon Dioxide 30 H (22-29) mmol/L Anion Gap 8 L (12-20) BUN 14 (9-16) mg/dL Creatinine 0.85 (0.5-1.4) mg/dL Estim Creat Clear Calc 50.0 Estimated GFR > 60 Random Glucose 84 (60-115) mg/dL Calcium 9.3 (8.4-10.2) mg/dL Magnesium 2.2 (1.6-2.6) mg/dL Total Bilirubin 0.6 (0.0-1.0) mg/dL AST 26 (5-31) U/L ALT 34 H (0-31) U/L Alkaline Phosphatase 76 (39-117) U/L Total Protein 6.8 (6.5-8.0) g/dL Albumin 4.2 (3.5-5.0) g/dL Lipase 23 (8-78) U/L Urine Color Dark Yellow Urine Appearance Clear Urine pH 5.5 (5.0-9.0) Ur Specific [place] >= 1.030 H (1.005-1.025) Urine Protein Negative (Neg-Trace) mg/dL Urine Glucose (UA) Negative (Negative) mg/dL Urine Ketones Trace (Negative) mg/dL Urine Blood Negative (Negative) Urine Nitrite Negative (Negative) Ur Leukocyte Esterase Negative (Negative) Independent Historian Clinical information obtained from an independent historian. History obtained from or confirmed by: Other (Son and ANTHROPOLOGY AND ARCHEOLOGY INSTRUCTOR) Tests considered The following testing was considered but not selected: Would have considered a pelvic CT head there been any concerns for fourniers gangrene or if patient still had a uterus and there was no known source of bleeding would have consider transvaginal ultrasound Prescription Management I considered prescription management with: Antibiotic and Other Chronic Conditions Patient?s care impacted by: Other (Dementia) Social Determinants Patient?s care significantly limited by Social Determinants of Health including: Other Social Determinant of Health Discharge Plan Discharge Clinical Impression: Urethral caruncle Patient Disposition: Home, Self-Care Additional Instructions: Patient was seen in the emergency department today at a concerns of vaginal bleeding. There is no vaginal lacerations in her uterus is absent. Patient does have a mass coming from her urethra. She had both a surgical and urology consult done. Urology has recommended that she start Estrace cream daily on this and follow up outpatient with them. Please contact our office to book this we will also send them a copy of the record today. There is no indication of a soft tissue skin infection or urinary tract infection today. Prescriptions: New estradiol [Estrace] 0.01 % (0.1 mg/gram) cream 1 appful vaginal DAILY Qty: 42.5 0RF Rx Instructions: apply to urethral mass until urology advises to stop No Action cholecalciferol (vitamin D3) 50 mcg (2,000 unit) capsule 50 mcg PO DAILY 90 Days Qty: 90 11RF memantine 10 mg tablet 10 mg PO BID 90 Days Qty: 180 11RF nitrofurantoin 50 mg/5 mL suspension 50 mg PO BEDTIME 30 Days Qty: 150 3RF Rx Instructions: must administer with a meal/food sertraline 100 mg tablet 100 mg PO DAILY 90 Days Qty: 90 1RF nystatin 100,000 unit/gram cream 1 appl topical BID PRN (Reason: rash) 30 Days Qty: 30 0RF docusate sodium 100 mg capsule 100 mg PO BID PRN (Reason: constipation) 30 Days Qty: 60 0RF nystatin 100,000 unit/gram powder 1 appl topical DAILY 14 Days Qty: 30 0RF aspirin 81 mg tablet,delayed release (DR/EC) 81 mg PO DAILY Qty: 90 1RF risperidone 0.25 mg tablet PO nitrofurantoin macrocrystal 50 mg capsule 50 mg PO BEDTIME 90 Days Qty: 90 1RF Rx Instructions: must administer with a meal/food atorvastatin 80 mg tablet 80 mg PO DAILY Referrals: [facility] [Provider Group, Urology] Referral Note: urethral caruncle Interventions: ED Discharge Assessment Last Done: 07/21/25 13:14 Discharge Date/Time: 07/21/25 13:37 Print Language: Chinese
[2025-07-21 10:40] LABS: MANUAL DIFF FLAG NO
[2025-07-21 10:41] LABS: Hematocrit 43.0 % (37.0-47.0); Hemoglobin 14.9 g/dl (12.0-16.0); Imm Gran Abs Auto 0.03 X10*3/uL (0.00-0.03); Imm Gran Pct Auto 0.4 % (0.0-0.4); Lymphocytes Absolute Auto 1.8 X10*3/uL (1.2-4.9); Mean Corpuscular HGB Conc 34.7 g/dl (31.0-35.0); Mean Corpuscular Hemoglobin 31.7 pg (27.0-33.0); Mean Corpuscular Volume 91.5 fL (80.0-98.0); NRBC Abs Auto 0.000 X10*3/uL (0.0-0.012); NRBC Pct Auto 0.0 /100WBC (0.0-0.2); Platelet Count 243 X10*3/uL (160-400); Red Blood Count 4.70 X10*6/uL (4.20-5.50); White Blood Count 8.3 X10*3/uL (4.8-10.8)
[2025-07-21 10:55] LABS: Alanine Aminotransferase 34 U/L (0-31); Albumin Level 4.2 g/dL (3.5-5.0); Alkaline Phosphatase 76 U/L (39-117); Anion Gap 8 (12-20); Aspartate Amino Transferase 26 U/L (5-31); Blood Urea Nitrogen 14 mg/dL (9-16); Calcium 9.3 mg/dL (8.4-10.2); Carbon Dioxide 30 mmol/L (22-29); Chloride 108 mmol/L (96-108); Creatinine Clr Calc Pharmacy 50.0; Estimated Glomerular Filt Rate > 60; Lipase 23 U/L (8-78); Magnesium 2.2 mg/dL (1.6-2.6); Potassium 4.1 mmol/L (3.3-5.1); Sodium 142 mmol/L (135-145); Total Protein 6.8 g/dL (6.5-8.0)
[2025-07-21 11:50] LABS: Appearance Urine Clear; Glucose Urine UA Negative (Negative); PH 5.5 (5.0-9.0); Specific Gravity - Urine >= 1.030 (1.005-1.025)
--- NOTE | 2025-07-21 11:59 | P.CONOB_ITS ---
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 Dementia Alzheimer's disease, unspecified Encounter to establish care COVID-19 Family History Family History Mother Stroke CAD (coronary artery disease) Father Alzheimer's dementia Surgical History Surgical History Hx of cardiac cath H/O: hysterectomy History of colonoscopy Social History Social History Housing: House Alcohol intake: former Patient Tobacco Use Status: Former Tobacco user Smoked in Last 30 Days: No e-Cigarette/Vaping Use: Never Used Second Hand Smoke Exposure: No Use of substances other than those prescribed or required for medical reasons: No Advance Directives: No Advance Directives Information Provided: Yes Do you have a plan to hurt others: No Plan service: No Current occupational status: disabled Cognitive needs: No Hearing needs: No Vision needs: No Meds Allergies Allergy/AdvReac Type Severity Reaction Status Date / Time No Known Allergies (No Known Allergy Verified 07/21/25 10:24 Allergies*) Home Medications ?Medication ?Instructions ?Recorded ?Confirmed ?Last Taken ?Type atorvastatin 80 mg tablet 80 mg PO DAILY 03/04/2508/12 Unknown History risperidone 0.25 mg tablet mg PO 04/26/25 04/26/25 Unk nown History 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 Physical Exam Vitals Vital signs: Temp Pulse Resp BP Pulse Ox O2 Del Method 97.9 F 68 18 141/68 H 98 Room Air 07/21/25 10:21 07/21/25 10:21 07/21/25 10:21 07/21/25 10:21 07/21/25 10:21 07/21/25 10:21 BMI result Body Mass Index 30.3 Female Genitalia (Pelvic) Bladder/Urethra: Mass (Protruding Urethral mass ) Vulva: No lesions Atrophy: Mild Vagina: Nontender Cervix: Cervix Surgically Absent Uterus: Uterus surgically absent Adnexa/Parametria: Adnexal Tenderness: None, Adnexal Mass: None, Parametrial Tenderness: None and Parametrial Mass: None 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 - Results Labs 07/21/25 10:33 07/21/25 10:33 Labs: Short CBC 07/21/25 Range/Units 10:33 WBC 8.3 (4.8-10.8) X10*3/uL Hgb 14.9 (12.0-16.0) g/dl Hct 43.0 (37.0-47.0) % Plt Count 243 (160-400) X10*3/uL BMP 07/21/25 10:33 Sodium 142 Potassium 4.1 Chloride 108 Carbon Dioxide 30 H BUN 14 Creatinine 0.85 Calcium 9.3 Liver Function 07/21/25 Range/Units 10:33 Total Bilirubin 0.6 (0.0-1.0) mg/dL AST 26 (5-31) U/L ALT 34 H (0-31) U/L Alkaline Phosphatase 76 (39-117) U/L Albumin 4.2 (3.5-5.0) g/dL Urine 07/21/25 Range/Units 11:42 Urine Color Dark Yellow Urine Appearance Clear Urine pH 5.5 (5.0-9.0) Ur Specific [place] >= 1.030 H (1.005-1.025) Urine Protein Negative (Neg-Trace) mg/dL Urine Glucose (UA) Negative (Negative) mg/dL Assessment and Plan (1) Mass of urethra: Status: Acute Discussed with the patient and her family the finding on pelvic exam, normal vaginal wall absent cervix and uterus and a urethral protruding mass, recommended urology consult.
[2025-07-21 13:14] VITALS: BP 126/77; PULSE 69; RESP 18; TEMP 36.6; O2SAT 97
== END 2025-07-21 13:37 | disposition home or self-care (01) ==
PROVIDERS: Physician Assistant Medical; Emergency Provider Emergency Medicine Emergency Medical Services; PCP Internal Medicine
DX: N34.0 Urethral abscess (principal); N93.9 Abnormal uterine and vaginal bleeding, unspecified; G30.9 Alzheimer's disease, unspecified; F02.80 Dementia in other diseases classified elsewhere, unspecified severity, without behavioral disturbance, psychotic disturbance, mood disturbance, and anxiety; K21.9 Gastro-esophageal reflux disease without esophagitis; Z79.899 Other long term (current) drug therapy
CPT/HCPCS: 36415; 80053; 81003; 83690; 83735; 85025; 99283; 99284

== ENCOUNTER → 2025-07-21 10:54 | Outpatient (BNV) | payer MEDICARE, SELFPAY | PROVIDERS: Emergency Provider Emergency Medicine Emergency Medical Services; PCP Internal Medicine; Visit Provider Obstetrics & Gynecology | DX: N36.8 Other specified disorders of urethra (principal) | CPT/HCPCS: 99222 ==

== ENCOUNTER 2025-08-04 06:25 | Outpatient (REF) | payer MEDICARE, SELFPAY ==
[2025-08-04 06:28] LABS: MANUAL DIFF FLAG NO
[2025-08-04 07:19] LABS: Hematocrit 39.6 % (37.0-47.0); Hemoglobin 13.7 g/dl (12.0-16.0); Imm Gran Abs Auto 0.04 X10*3/uL (0.00-0.03); Imm Gran Pct Auto 0.4 % (0.0-0.4); Lymphocytes Absolute Auto 2.3 X10*3/uL (1.2-4.9); Mean Corpuscular HGB Conc 34.6 g/dl (31.0-35.0); Mean Corpuscular Hemoglobin 31.3 pg (27.0-33.0); Mean Corpuscular Volume 90.4 fL (80.0-98.0); NRBC Abs Auto 0.000 X10*3/uL (0.0-0.012); NRBC Pct Auto 0.0 /100WBC (0.0-0.2); Platelet Count 194 X10*3/uL (160-400); Red Blood Count 4.38 X10*6/uL (4.20-5.50); White Blood Count 9.2 X10*3/uL (4.8-10.8)
[2025-08-04 07:37] LABS: Hemoglobin A1C 92.4021 umol/L; Total Hemoglobin (HGBA1C) 3635.1924 umol/L
[2025-08-04 07:55] LABS: Alanine Aminotransferase 31 U/L (0-31); Albumin Level 3.4 g/dL (3.5-5.0); Alkaline Phosphatase 70 U/L (39-117); Anion Gap 9 (12-20); Aspartate Amino Transferase 26 U/L (5-31); Blood Urea Nitrogen 9 mg/dL (9-16); Calcium 8.7 mg/dL (8.4-10.2); Carbon Dioxide 26 mmol/L (22-29); Chloride 109 mmol/L (96-108); Estimated Glomerular Filt Rate > 60; Potassium 3.8 mmol/L (3.3-5.1); Sodium 140 mmol/L (135-145); Total Protein 5.9 g/dL (6.5-8.0)
== END 2025-08-04 06:26 | disposition home or self-care (01) ==
LOC: HO.MMNH2L 06:25
PROVIDERS: Visit Provider Student in an Organized Health Care Education/Training Program
DX: F41.1 Generalized anxiety disorder (principal); F32.A Depression, unspecified; F03.90 Unspecified dementia, unspecified severity, without behavioral disturbance, psychotic disturbance, mood disturbance, and anxiety; Z13.1 Encounter for screening for diabetes mellitus
CPT/HCPCS: 36415; 80053; 83036; 85025

== ENCOUNTER 2025-08-09 07:18 | Outpatient (REF) | payer MEDICARE, SELFPAY ==
[2025-08-09 06:41] LABS: MANUAL DIFF FLAG NO
[2025-08-09 07:24] LABS: Anion Gap 13 (12-20); Blood Urea Nitrogen 19 mg/dL (9-16); Calcium 9.1 mg/dL (8.4-10.2); Carbon Dioxide 21 mmol/L (22-29); Chloride 108 mmol/L (96-108); Estimated Glomerular Filt Rate > 60; Potassium 3.7 mmol/L (3.3-5.1); Sodium 138 mmol/L (135-145)
[2025-08-09 07:34] LABS: Hematocrit 41.8 % (37.0-47.0); Hemoglobin 14.5 g/dl (12.0-16.0); Imm Gran Abs Auto 0.03 X10*3/uL (0.00-0.03); Imm Gran Pct Auto 0.3 % (0.0-0.4); Lymphocytes Absolute Auto 2.3 X10*3/uL (1.2-4.9); Mean Corpuscular HGB Conc 34.7 g/dl (31.0-35.0); Mean Corpuscular Hemoglobin 31.5 pg (27.0-33.0); Mean Corpuscular Volume 90.9 fL (80.0-98.0); NRBC Abs Auto 0.000 X10*3/uL (0.0-0.012); NRBC Pct Auto 0.0 /100WBC (0.0-0.2); Platelet Count 307 X10*3/uL (160-400); Red Blood Count 4.60 X10*6/uL (4.20-5.50); White Blood Count 10.2 X10*3/uL (4.8-10.8)
== END 2025-08-09 07:19 | disposition home or self-care (01) ==
LOC: HO.MMNH2L 07:18
PROVIDERS: Physician Assistant Medical; Visit Provider Student in an Organized Health Care Education/Training Program
DX: F03.90 Unspecified dementia, unspecified severity, without behavioral disturbance, psychotic disturbance, mood disturbance, and anxiety (principal); F41.9 Anxiety disorder, unspecified; F32.A Depression, unspecified
CPT/HCPCS: 36415; 80048; 85025

== ENCOUNTER 2025-08-16 06:33 | Outpatient (REF) | payer MEDICARE, SELFPAY ==
[2025-08-16 06:11] LABS: MANUAL DIFF FLAG NO
[2025-08-16 07:06] LABS: Hematocrit 38.9 % (37.0-47.0); Hemoglobin 13.0 g/dl (12.0-16.0); Imm Gran Abs Auto 0.03 X10*3/uL (0.00-0.03); Imm Gran Pct Auto 0.4 % (0.0-0.4); Lymphocytes Absolute Auto 2.3 X10*3/uL (1.2-4.9); Mean Corpuscular HGB Conc 33.4 g/dl (31.0-35.0); Mean Corpuscular Hemoglobin 31.4 pg (27.0-33.0); Mean Corpuscular Volume 94.0 fL (80.0-98.0); NRBC Abs Auto 0.000 X10*3/uL (0.0-0.012); NRBC Pct Auto 0.0 /100WBC (0.0-0.2); Platelet Count 240 X10*3/uL (160-400); Red Blood Count 4.14 X10*6/uL (4.20-5.50); White Blood Count 7.8 X10*3/uL (4.8-10.8)
[2025-08-16 07:14] LABS: Anion Gap 9 (12-20); Blood Urea Nitrogen 16 mg/dL (9-16); Calcium 8.2 mg/dL (8.4-10.2); Carbon Dioxide 26 mmol/L (22-29); Chloride 111 mmol/L (96-108); Estimated Glomerular Filt Rate > 60; Potassium 4.5 mmol/L (3.3-5.1); Sodium 141 mmol/L (135-145)
== END 2025-08-16 06:34 | disposition home or self-care (01) ==
LOC: HO.MMNH2L 06:33
PROVIDERS: Visit Provider Student in an Organized Health Care Education/Training Program
DX: F41.9 Anxiety disorder, unspecified (principal); F32.A Depression, unspecified; F03.90 Unspecified dementia, unspecified severity, without behavioral disturbance, psychotic disturbance, mood disturbance, and anxiety
CPT/HCPCS: 36415; 80048; 85025

== ENCOUNTER 2025-08-18 15:12 | Outpatient (AMB) | payer MEDICARE, SELFPAY ==
--- NOTE | 2025-08-18 15:30 | MHC.OFFVIS ---
Intake Visit Reasons: Large caruncle? with bleeding Allergies No Known Allergies (No Known Allergies*) Allergy (Verified 08/18/25 15:30) Medication List - Last Reconciled 08/18/25 by China Mancini MD aspirin 81 mg PO DAILY atorvastatin 80 mg PO DAILY cholecalciferol (vitamin D3) 50 mcg PO DAILY 90 days docusate sodium 100 mg PO BID PRN 30 days estradiol 0.01%(0.1mg/gram) (Estrace) 1 appful vaginal DAILY memantine 10 mg PO BID 90 days nitrofurantoin 50 mg (5 mL) PO BEDTIME 30 days nitrofurantoin macrocrystal 50 mg PO BEDTIME 90 days nystatin 1 appl topical BID PRN 30 days nystatin 1 appl topical DAILY 2 weeks risperidone mg PO sertraline 100 mg PO DAILY 90 days HPI Comments Details: Renée is here as a new patient evaluation. Was seen in the emergency room on 07/21/2025 due to vaginal bleeding at that time she was examined by emergency room staff who noted a urethral caruncle and prescribed estrogen cream. History of Present Illness The patient is a 74-year-old female presenting with and for management of a urethral caruncle. The patient has a history of frequent urinary tract infections, which have been a recurring issue. She was recently seen in the emergency room due to vaginal bleeding, where a urethral caruncle was identified and estrogen cream was prescribed for management. The patient resides in an assisted living facility and the patient's family has been applying the cream intermittently. Examination- vaginal atrophy, urethral caruncle, no active bleeding Plan 1. Urinary Tract Infection - Evaluate current symptoms and consider urinalysis to confirm diagnosis. - Discuss potential antibiotic treatment options based on urinalysis results. 2. Urethral Caruncle - Continue application of estrogen cream 3x/week 3. Vaginal Bleeding - Monitor for any recurrence of bleeding and evaluate if further intervention is needed. 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 Dementia Alzheimer's disease, unspecified Encounter to establish care COVID-19 Surgical History Hx of cardiac cath H/O: hysterectomy History of colonoscopy Family History Mother Stroke CAD (coronary artery disease) Father Alzheimer's dementia Social History Housing: House Alcohol intake: former Patient Tobacco Use Status: Former Tobacco user e-Cigarette/Vaping Use: Never Used Second Hand Smoke Exposure: No service: No Current occupational status: disabled Cognitive needs: No Hearing needs: No Vision needs: No Review of Systems Const All systems reviewed & are unremarkable except as noted in HPI and below Reports no additional complaints Eyes Reports no additional complaints ENT Reports no additional complaints Card Reports no additional complaints Resp Reports no additional complaints GI Reports no additional complaints Reports as per HPI Musc Reports no additional complaints Skin/Breast Reports system reviewed and no additional complaints, except as documented Neuro Reports no additional complaints Psych Reports no additional complaints Endo Reports no additional complaints Richard/Lymph Reports no additional complaints Aller/Immun Reports no additional complaints Physical Exam Const General: cooperative, healthy appearing and no acute distress Orientation/consciousness: patient oriented x3 HEENT Head: Yes normal to inspection, Yes normocephalic and Yes atraumatic Eyes Conjunctivae: conjunctivae normal Neck Neck: Yes normal visual inspection and Yes trachea midline Chest Chest palpation & inspection: normal inspection of the chest Resp Effort & Inspection: normal respiratory effort GI Inspection: Yes normal to inspection Palpation (GI): Soft to palpation Other: Urethral caruncle not actively bleeding. Continue Estrace cream 3 times a week External Female Exam: normal external appearance Speculum Exam - Vagina: vagina atrophic Neuro General: patient oriented x3 Psych Appearance: grossly normal Results AMB Urinalysis, Automated UA Leukoctes 0 Johnny/uL Last Edit by Bailey Whitley on 08/18/25 17:11 UA Nitrite Negative Last Edit by Bailey Whitley on 08/18/25 17:11 UA Urobilinogen 0.2 mg/dL Last Edit by Bailey Whitley on 08/18/25 17:11 UA Protein 15 mg/dL Last Edit by Bailey Whitley on 08/18/25 17:11 UA pH 5.0 Last Edit by Bailey Whitley on 08/18/25 17:11 UA Blood 25 Mendel/uL Last Edit by Bailey Whitley on 08/18/25 17:11 UA Specific [place] 1.030 Last Edit by Bailey Whitley on 08/18/25 17:11 UA Ketone Negative Last Edit by Bailey Whitley on 08/18/25 17:11 UA Bilirubin 0 mg/dL Last Edit by Bailey Whitley on 08/18/25 17:11 UA Glucose 0 mg/dL Last Edit by Bailey Whitley on 08/18/25 17:11 Results Reviewed Results Reviewed: Laboratory Last Values Urine pH (Auto) 5.0 08/18/25 16:37 Specific [place] (Auto) 1.030 08/18/25 16:37 Urine Protein (Auto) 15 mg/dL 08/18/25 16:37 Glucose (UA)(Auto) 0 mg/dL 08/18/25 16:37 Urine Ketones (Auto) Negative 08/18/25 16:37 Urine Blood (Auto) 25 Mendel/uL 08/18/25 16:37 Urine Nitrite (Auto) Negative 08/18/25 16:37 Urine Bilirubin (Auto) 0 mg/dL 08/18/25 16:37 Urine Urobilinogen (Auto) 0.2 mg/dL 08/18/25 16:37 Leukocyte Esterase (Auto) 0 Johnny/uL 08/18/25 16:37 Assessment & Plan Assessment & Plan (1) Vaginal atrophy: Code(s): N95.2 - Postmenopausal atrophic vaginitis Category: Medical (2) 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 Urinary Tract Infection - Evaluate current symptoms and consider urinalysis to confirm diagnosis. - Discuss potential antibiotic treatment options based on urinalysis results. 2. Urethral Caruncle - Continue application of estrogen cream 3x/week 3. Vaginal Bleeding - Monitor for any recurrence of bleeding and evaluate if further intervention is needed. Orders: Orders AMB Urinalysis Automated 08/18/25 Z13.9 - Encounter for screening, unspecified Urine Culture 08/18/25 N39.0 - Urinary tract infection, site not specified Medications: Changed From estradiol 0.01%(0.1mg/gram) (Estrace) apply to urethral mass until urology advises to stop 1 appful vaginal DAILY 42.5 grams 0RF To estradiol 0.01%(0.1mg/gram) (Estrace) apply to urethral caruncle/mucosa, 3 times a week 1 appful vaginal DAILY 42.5 grams 1RF Patient Instructions: The patient had an opportunity to ask questions regarding treatment plan. The patient expressed understanding and agreement with the above treatment plan. The patient is aware they should contact our office by phone for worsening of their current condition or the appearance of new symptoms. Compliance is encouraged with any medications and followup testing that is ordered. It is a privilege to be allowed the opportunity to participate in the urologic care of your patient. If you have any questions or concerns regarding treatment for the above conditions please do not hesitate to contact me. The office telephone contact is [phone]. This note is constructed in part using voice recognition software. While every effort has been made to ensure accuracy riveter portable machine errors may have been included. Yours sincerely, China Mancini MD Scribe Plan - Not visible on output: Patient was informed and verbally consented to the use of an ambient scribe for clinic note documentation during this visit. Coding Level of Care Code New Pt Level 4 (24099) Diagnoses Vaginal atrophy N95.2 Urethral caruncle N36.2 Vaginal bleeding N93.9 Recurrent UTI N39.0
--- NOTE | 2025-08-18 15:30 | MHC.OFFVIS ---
Intake Visit Reasons: Large caruncle? with bleeding Intake Note: New patient presents today for initial visit for large caruncle with bleeding Urology Medication:Estradiol Blood Thinner:Aspirin Antibiotic Allergies:None Allergies No Known Allergies (No Known Allergies*) Allergy (Verified 08/18/25 15:30) Medication List - Last Reconciled 08/18/25 by China Mancini MD aspirin 81 mg PO DAILY atorvastatin 80 mg PO DAILY cholecalciferol (vitamin D3) 50 mcg PO DAILY 90 days docusate sodium 100 mg PO BID PRN 30 days estradiol 0.01%(0.1mg/gram) (Estrace) 1 appful vaginal DAILY memantine 10 mg PO BID 90 days nitrofurantoin 50 mg (5 mL) PO BEDTIME 30 days nitrofurantoin macrocrystal 50 mg PO BEDTIME 90 days nystatin 1 appl topical BID PRN 30 days nystatin 1 appl topical DAILY 2 weeks risperidone mg PO sertraline 100 mg PO DAILY 90 days [facility] Medical History 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 Dementia Alzheimer's disease, unspecified Encounter to establish care COVID-19 Surgical History Hx of cardiac cath H/O: hysterectomy History of colonoscopy Family History Mother Stroke CAD (coronary artery disease) Father Alzheimer's dementia Social History Housing: House Alcohol intake: former Patient Tobacco Use Status: Former Tobacco user e-Cigarette/Vaping Use: Never Used Second Hand Smoke Exposure: No service: No Current occupational status: disabled Cognitive needs: No Hearing needs: No Vision needs: No Results AMB Urinalysis, Automated UA Leukoctes 0 Johnny/uL Last Edit by Bailey Whitley on 08/18/25 17:11 UA Nitrite Negative Last Edit by Bailey Whitley on 08/18/25 17:11 UA Urobilinogen 0.2 mg/dL Last Edit by Bailey Whitley on 08/18/25 17:11 UA Protein 15 mg/dL Last Edit by Bailey Whitley on 08/18/25 17:11 UA pH 5.0 Last Edit by Bailey Whitley on 08/18/25 17:11 UA Blood 25 Mendel/uL Last Edit by Bailey Whitley on 08/18/25 17:11 UA Specific [place] 1.030 Last Edit by Bailey Whitley on 08/18/25 17:11 UA Ketone Negative Last Edit by Bailey Whitley on 08/18/25 17:11 UA Bilirubin 0 mg/dL Last Edit by Bailey Whitley on 08/18/25 17:11 UA Glucose 0 mg/dL Last Edit by Bailey Whitley on 08/18/25 17:11 Results Reviewed Results Reviewed: Laboratory Last Values Urine pH (Auto) 5.0 08/18/25 16:37 Specific [place] (Auto) 1.030 08/18/25 16:37 Urine Protein (Auto) 15 mg/dL 08/18/25 16:37 Glucose (UA)(Auto) 0 mg/dL 08/18/25 16:37 Urine Ketones (Auto) Negative 08/18/25 16:37 Urine Blood (Auto) 25 Mendel/uL 08/18/25 16:37 Urine Nitrite (Auto) Negative 08/18/25 16:37 Urine Bilirubin (Auto) 0 mg/dL 08/18/25 16:37 Urine Urobilinogen (Auto) 0.2 mg/dL 08/18/25 16:37 Leukocyte Esterase (Auto) 0 Johnny/uL 08/18/25 16:37 Assessment & Plan Assessment & Plan Orders: Orders AMB Urinalysis Automated 08/18/25 Z13.9 - Encounter for screening, unspecified Urine Culture 08/18/25 N39.0 - Urinary tract infection, site not specified Medications: Changed From estradiol 0.01%(0.1mg/gram) (Estrace) apply to urethral mass until urology advises to stop 1 appful vaginal DAILY 42.5 grams 0RF To estradiol 0.01%(0.1mg/gram) (Estrace) apply to urethral caruncle/mucosa, 3 times a week 1 appful vaginal DAILY 42.5 grams 1RF Coding
--- OUTSIDE RECORDS SUMMARY | 2025-08-18 16:14 | XMS_ITS ---
Author Organization [facility] Care Team Providers Care Technical Training Coordinator Name Role Phone Emi Bass Unavailable Unavailable Ti Perez Unavailable Unavailable Dick Bundy Unavailable Unavailable Allergies and adverse reactions No Known Allergies Care Team Name Role Address Phone Organization Dates Dick Gregor PCP [address] [place] [address], [facility] (Office): : [facility] 08/03/2025 - 08/16/2025 Emi Bass [address] [address], [facility] (Office): : [facility] 08/03/2025 - 08/16/2025 Ti Perez [address] [place] [address], [facility] (Office): : [facility] 08/03/2025 - 08/16/2025 Encounters EncounterType Code CodeSystem Description Performer ServiceDe liveryLocation Date Ambulatory Encounter CPT Code = [id number] Dementia Taylor May [facility] Address: [address] [place] [address], [address], [facility]. 08/03 Ambulatory Encounter CPT Code = [id number] Bradycardia Taylor Ramon [facility] Address: [address] [place] [address]. 08/03 Ambulatory Encounter CPT Code = [id number] Fall Taylor Navarro [facility] Address: [address] [place] [address]. 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 08/03 Ambulatory Encounter CPT Code = [address] Vitamin D deficiency Taylor Navarro [facility] Address: [address] [place] [address]. 08/03 Ambulatory Encounter CPT Code = [address] Muscle atrophy Taylor Navarro [facility] Address: [address] [place] [address]. 08/03 Ambulatory Encounter CPT Code = [address] Vomiting Taylor Navarro [facility] Address: [address] [place] [address]. 08/03 Ambulatory Encounter CPT Code = [address] Urinary tract infectious disease Taylor Navarro [facility] Address: [address] [place] [address]. 08/03 Ambulatory Encounter CPT Code = [address] Undernutrition Taylor Navarro [facility] Address: [address] [place] [address]. 08/03 Goals Section Goals Description Status Target Date I plan to discharge to: Spec joby- To community alone, To Community with Family, [facility], LTC Placement, Other- Undecided at current time. Pending outcome of therapy sessions, clinical medical stability progress reviewed weekly. Active 10/28/2025 I will attend/participate in activities of choice (Specify i.e.3-5 times weekly) by next review date. Active 10/28/2025 I will be able to make basic needs known daily through the review date. Active 10/28/2025 I will be at reduced risk fo r complications of self care performance deficit and impaired mobility daily through the review date. Active 10/28/2025 I will be free from discomfo rt or adverse side effects related to anti-depressant therapy through the review date. Active 10/28 I will be free from s/sx of dehydration through next review date. Active 10/28/2025 I will be free of fall relat ed injury through the next review date. Active 10/28/2025 I will maintain adequate nut ritional status as evidenced by maintaining weight within +/-5% of CBW, no s/sx of malnutrition, and consuming at least 76% of at least 2 meals daily through review date. Active 10/28/2025 I will maintain current leve l of cognitive function through the review date. Active 10/28/2025 I will maintain or improve m y independence and mobility through review date. Active 10/28/2025 I will not have skin breakdo wn due to incontinence through the review date. Active 10/28/2025 I will not have skin breakdo wn due to incontinence through the review date. Active 10/28/2025 I will verbalize adequate re lief of pain or ability to cope with incompletely relieved pain through the review date. Active My risk for schofield will be mitigated through revi ew date. Active 10/28/2025 My risk for respiratory comp lications and infections will be mitigated through the review date. Active 10/28/2025 My skin integrity will be im proved or maintained by next review date. Active 10/28/2025 The resident will have intac t skin, free of redness, blisters, or discoloration through review date. Active 10/28/2025 The resident's advance direc tives are in effect and their wishes will be carried out through the next review. Active Functional Status Code Name Recorded Time Value Entered By Eating 08/16/2025 Setup or clean-up assistance spolastri Lying to sitting on side of bed 08/16/2025 Substantial/maximal assistance spolastri Oral hygiene 08/16/2025 Substantial/maximal assistan ce spolastri Personal hygiene 08/16/2025 Substantial/maximal assi stance spolastri Shower/bathe self 08/16/2025 Substantial/maximal ass istance spolastri Sit to lying 08/16/2025 Substantial/maximal assistan ce spolastri Toilet transfer 08/16/2025 Substantial/maximal forest tance spolastri Toileting hygiene 08/16/2025 Substantial/maximal ass istance spolastri Immunizations Immunization Status Vaccine Details Vaccine Code CodeSystem Date Notes (Pneumococcal) PCV13- Conjugate 13-valent Vaccine completed pneumococcal conjugate vaccine, 13 valent 133 CVX created date: 08/10/2025 administere d date: 09/17/2016 (Tetanus, Diphtheria, and Acellular Pertussis) Tdap completed tetanus toxoid, reduced diphtheria toxoid, and acellular pertussis vaccine, adsorbed 115 CVX created date: 08/10/2025 administere d date: 05/22/2018 (Pneumococcal) PPSV23- Polysaccharide 23-valent Vaccine completed pneumococcal polysaccharide vaccine, 23 valent 33 CVX created date: 08/10/2025 administere d date: 04/25/2017 Medications Section Medication Name Status Code CodeSystem Dose Route Frequency Admin Type Sig Text Start Date End Date Indication Aspirin 81 Oral Tablet Chewable active 1 table t Oral one time a day Routin e Give 1 table t by mouth one time a day for Analg esia 2024 - Analgesia Memantine HCl Oral Tablet 10 MG aborted 69333 1 RXNORM 1 table t Oral two times a day Routin e Give 1 table t by mouth two times a day for Demen tia 08/06 Dementia Sulfamethox azole-Trime thoprim Oral Tablet 800-160 MG complet ed 5 RXNORM 1 table t Oral two times a day Routin e Give 1 table t by mouth two times a day for UTI for 4 Days 08/07 UTI RisperiDONE Tablet 0.25 MG active 06047 8 RXNORM 0.5 table t Oral at bedtime Routin e Give 0.5 table t by mouth at bedti me for Demen tia 2024 - Dementia Sertraline HCl Oral Tablet 50 MG active 61241 1 RXNORM 1 table t Oral one time a day Routin e Give 1 table t by mouth one time a day for Depre ssion 2024 - Depression Tubersol Solution 5 UNIT/0.1ML active 71489 5 RXNORM 0.1 ml Intrad ermal one time only One Time Only Injec t 0.1 ml intra derma lly one time only for 1st PPD test until 08/04 23:59 Injec t 0.1ml [5TU] intra derma lly withi n 24 hours of admis polina. Recor d site. Read in 48 hours . If negat abdelrahman, admin ister 2nd step in 7-10 days, read in 48 hours and recor d. AND Injec t 0.1 ml intra derma lly one time only for 2nd PPD test until 08/18 23:59 Injec t 0.1ml [5TU] intra derma lly. Recor d site. Read in 48 hours and recor d. 08/05 1st PPD test 57100 5 RXNORM 0.1 ml Intrad ermal one time only One Time Only Injec t 0.1 ml intra derma lly one time only for 1st PPD test until 08/04 23:59 Injec t 0.1ml [5TU] intra derma lly withi n 24 hours of admis polina. Recor d site. Read in 48 hours . If negat abdelrahman, admin ister 2nd step in 7-10 days, read in 48 hours and recor d. AND Injec t 0.1 ml intra derma lly one time only for 2nd PPD test until 08/18 23:59 Injec t 0.1ml [5TU] intra derma lly. Recor d site. Read in 48 hours and recor d. 08/19 2nd PPD test Acetaminoph en Oral Tablet 325 MG active 09987 2 RXNORM 2 table t Oral as needed PRN Give 2 table t by mouth every 6 hours as neede d for Pain Total Dose 650mg * *DO NOT EXCEE D 3 grams in 24 hours AND Give 2 table t by mouth every 6 hours as neede d for [place] ratur e great er than 101.F Total Dose 650mg * *DO NOT EXCEE D 3 grams in 24 hours 2024 - Pain 29827 2 RXNORM 2 table t Oral as needed PRN Give 2 table t by mouth every 6 hours as neede d for Pain Total Dose 650mg * *DO NOT EXCEE D 3 grams in 24 hours AND Give 2 table t by mouth every 6 hours as neede d for [place] ratur e great er than 101.F Total Dose 650mg * *DO NOT EXCEE D 3 grams in 24 hours 2024 - Temperature greater than 101.F Bisacodyl Rectal Suppository 10 MG active 9 RXNORM 1 suppo sitor y Rectal as needed PRN Inser t 1 suppo sitor y recta lly every 24 hours as neede d for Const ipati on Give 1 Suppo sitor y (10mg ) via rectu m if no resul ts from Milk of Magne latha after 24 hours . 2024 - Constipatio n Fleet Enema Rectal Enema 7-19 GM/118ML active 77377 5 RXNORM 1 appli cator Rectal as needed PRN Inser t 1 appli cator recta lly as neede d for Const ipati on Give 1 appli cator full (118 ml)if no resul ts from Bisac odyl suppo sitor y. 2024 - Constipatio n Milk of Magnesia Oral Suspension 400 MG/5ML active 56500 7 RXNORM 30 ml Oral as needed PRN Give 30 ml by mouth every 24 hours as neede d for Const ipati on Give 30ml by mouth if no bowel movem ent in 3 days (9 Shift s). 2024 - Constipatio n Memantine HCl Oral Tablet 10 MG active 24902 1 RXNORM 1 table t Oral two times a day Routin e Give 1 table t by mouth two times a day for Demjeremie tia 2024 - Dementia Plan of Treatment Section Interventions Intervention Code Code System Display Name Proposed D ate Problems Problem # Description Date of onset Resolved Date Code CodeSystem Concern Status 1 ATHEROSCLEROTIC HEART DISEASE OF [place] CORONARY ARTERY WITHOUT ANGINA PECTORIS 08/03/[address] active 2 BRADYCARDIA, UNSPECIFIED 08/03/[address] active 3 HISTORY OF FALLING 08/03/[address] active 4 MUSCLE WASTING AND ATROPHY, NOT ELSEWHERE CLASSIFIED, MULTIPLE SITES 08/03/[address] active 5 UNSPECIFIED DEMENTIA, UNSPECIFIED SEVERITY, WITHOUT BEHAVIORAL DISTURBANCE, PSYCHOTIC DISTURBANCE, MOOD DISTURBANCE, AND ANXIETY 08/03/[address] active 6 UNSPECIFIED PROTEIN-CALORIE MALNUTRITION 08/03/[address] active 7 URINARY TRACT INFECTION, SITE NOT SPECIFIED 08/03/[address] active 8 VITAMIN D DEFICIENCY, UNSPECIFIED 08/03/[address] active 9 VOMITING, UNSPECIFIED 08/03/[address] active Reason for Referral No Reasons for Referral Entered Social History Social History Observation Description Start Date End Date Code Code System Current Smoking Status Tobacco smoking consumption unknown 597256494 SNOMED CT Sex Assigned At Female 1950 89145-0 [facility] Gender Identity Sexual Orientation Vital Signs Code Code System Vitals Name Values and Units Timing Information 23209-1 [facility] Pain Level Value=0.0 08/16/2025 9279-1 [facility] Respiratory Rate Value=18.0 Units=/m in 08/15/2025 8462-4 [facility] Blood Pressure-Diastolic Value=67 Un its=mmHg 08/15/2025 8480-6 [facility] Blood Pressure-Systolic Kcnll=395 Un its=mmHg 08/15/2025 8310-5 [facility] Body Temperature Value=97.3 Units= F 08/15/2025 8867-4 [facility] Heart rate Value=70.0 Units=/min 96989-4 [facility] Weight Xujzw=115.6 Units=Lbs 25381-6 [facility] O2 % BldC Oximetry Value=97.0 Units= % 08/07/2025 8302-2 [facility] Height Value=62.0 Units=Inches 08/03/2025
== END 2025-08-18 16:16 | disposition home or self-care (01) ==
LOC: HO.HUSH 15:13
PROVIDERS: PCP Internal Medicine; Visit Provider Urology
DX: Z13.9 Encounter for screening, unspecified (principal)

== ENCOUNTER 2025-08-18 15:12 | Outpatient (REF) | payer MEDICARE, SELFPAY | END 2025-08-18 15:13 | disposition home or self-care (01) | LOC: HO.LNP 15:12 | PROVIDERS: PCP Internal Medicine; Visit Provider Urology | DX: N95.2 Postmenopausal atrophic vaginitis (principal); N36.2 Urethral caruncle; N93.9 Abnormal uterine and vaginal bleeding, unspecified; N39.0 Urinary tract infection, site not specified; Z79.82 Long term (current) use of aspirin | CPT/HCPCS: 81003; 87086; 99202 ==

== ENCOUNTER 2025-09-14 14:40 | Emergency (ER) | payer MEDICARE, SELFPAY ==
--- NOTE | ~2025-09-14 | XR_ITS ---
CLINICAL HISTORY: cough 1 view chest x-ray Comparison: CR/SR - XR CHEST 2 VIEWS - 05/16/23 16:57 EDT Findings: Heart size is normal. Atherosclerotic vascular disease of the aortic arch. Bilateral interstitial changes appear stable could be chronic. No consolidation, significant pleural effusion or pneumothorax. Stable elevation of the right hemidiaphragm. No acute fracture. Right ribs healed fractures. IMPRESSION: 1. No acute findings. 2. Nonacute findings as described. This document has been electronically signed by: Mary Hackett MD on 09/14/2025 18:09:22
--- NOTE | ~2025-09-14 | XR_ITS ---
CLINICAL HISTORY: fall, pain, tenderness 2 views lumbar spine Comparison: None provided Findings: Mild grade 1 anterolisthesis at L5-S1. Otherwise alignment is maintained. Vertebral body height overall maintained. No definite acute fracture. Degenerative disc disease at L5-S1. Facet arthropathy especially at L5-S1. Diffuse demineralization. IMPRESSION: 1. No acute findings. If clinically indicated follow-up CT could be obtained. 2. L5-S1 mild grade 1 anterolisthesis and degenerative disc disease. 3. Diffuse demineralization. This document has been electronically signed by: Mary Hackett MD on 09/14/2025 18:09:34
--- NOTE | ~2025-09-14 | XR_ITS ---
CLINICAL HISTORY: fall, pain 5 view, pelvis and left hip Comparison: None provided Findings: No acute fracture or dislocation. Mild degenerative changes bilateral hips. No erosions. Diffuse demineralization. Significant stool in rectosigmoid. IMPRESSION: No acute findings. This document has been electronically signed by: Mary Hackett MD on 09/14/2025 18:09:26
[2025-09-14 15:07] VITALS: BP 110/64; BP 129/79; PULSE 64; PULSE 77; RESP 16; TEMP 36.4; O2SAT 94; O2SAT 98; BMI 25.0
--- NOTE | 2025-09-14 15:15 | PC.NURSE ---
patient alert to self, rr equal/non labored, dry cough- per ems report pt covid positive- precautions placed outside room, pt fall precautions placed- chair alarm applied to patient as well. family currently at bedside. vss, pt unable to state her pain level- as she has a history of dementia. call romano within reach, pt awaiting provider donald
--- NOTE | 2025-09-14 16:30 | ED.GENADULT ---
HPI - General Adult General Chief complaint: Fall Stated complaint: fall 3 days ago, back pain +covid, dementia Time Seen by Provider: 09/14/25 16:21 History of Present Illness ED Provider: Jose PEÑA narrative: The patient is a 74-year-old woman with a history of dementia. She lives at a local care home facility on a dementia unit. Apparently last week she had a COVID vaccination on Saturday. She was tested for COVID on Saturday, 4 days ago and she tested positive. She was subsequently started on Paxlovid 2 days ago on Saturday. She apparently had a fall on Saturday. The details of the fall are not clear. At the time she was not transported to the hospital. She has a MOLST form that indicates that she/DNI, and ?do not transport to hospital except for comfort. ? Over the past couple of days the patient has seemed much more uncomfortable than usual and so the facility and the family decided she should be brought to the emergency room for evaluation. Additionally she has been coughing a lot. Related Data Home Medications ?Medication ?Instructions ?Recorded ?Confirmed atorvastatin 80 mg tablet 80 mg PO DAILY 03/04/25 08/18/25 risperidone 0.25 mg tablet mg PO 04/26/25 08/18/25 Previous Rx's ?Medication ?Instructions ?Recorded cholecalciferol (vitamin D3) 50 50 mcg PO DAILY 90 days #90 caps 01/14/25 mcg (2,000 unit) capsule memantine 10 mg tablet 10 mg PO BID 90 days #180 tabs 01/14/25 nitrofurantoin macrocrystal 50 mg 50 mg PO BEDTIME 90 days #90 caps 04/26/25 capsule nitrofurantoin 50 mg/5 mL oral 50 mg (5 mL) PO BEDTIME 30 days 04/27/25 suspension #150 mL sertraline 100 mg tablet 100 mg PO DAILY 90 days #90 tabs 05/10/25 nystatin 100,000 unit/gram topical 1 appl topical BID PRN rash 30 06/22/25 cream days #30 grams docusate sodium 100 mg capsule 100 mg PO BID PRN constipation 30 07/01/25 days #60 caps nystatin 100,000 unit/gram topical 1 appl topical DAILY 2 weeks #30 07/05/25 powder grams aspirin 81 mg tablet,delayed 81 mg PO DAILY #90 tabs 07/12/25 release estradiol 0.01% (0.1 mg/gram) 1 appful vaginal DAILY #42.5 grams 08/18/25 vaginal cream (Estrace) nirmatrelvir 300 mg (150 mg 3 ea PO PER PKG DIR 5 days #30 ea 09/10/25 x2)-ritonavir 100 mg tablet,dose pack (Paxlovid) Allergies Allergy/AdvReac Type Severity Reaction Status Date / Time No Known Allergies (No Known Allergy Verified 09/14/25 15:12 Allergies*) Review of Systems Review of Systems: Yes all other systems are reviewed and are negative [facility] Past Medical History Medical History 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 Dementia Alzheimer's disease, unspecified Encounter to establish care COVID-19 Surgical History Hx of cardiac cath H/O: hysterectomy History of colonoscopy Family History Family History Mother Stroke CAD (coronary artery disease) Father Alzheimer's dementia Social History Social History Housing: House Alcohol intake: former Patient Tobacco Use Status: Former Tobacco user e-Cigarette/Vaping Use: Never Used Second Hand Smoke Exposure: No Advance Directives Date on File: 08/02/22 service: No Current occupational status: disabled Cognitive needs: No Hearing needs: No Vision needs: No Physical Exam ED Vital Signs: Vital Signs - 24 hr 09/14/25 15:07 09/14/25 19:15 09/14/25 19:41 Temperature 97.6 F 97.8 F 97.8 F Pulse Rate 77 86 86 Respiratory Rate 16 18 18 Blood Pressure 129/79 136/83 136/83 Pulse Oximetry 94 94 94 Oxygen Delivery Method Room Air Room Air Room Air BMI result Body Mass Index 25.0 Const Other: The patient is a 74-year-old woman who was awake and alert. She seems quite demented however. She is poorly oriented. She did not seem in acute distress initially but she had occasional fits of coughing that seemed intense while I was in the room. HENMT Other: The face is symmetrical. ?Mucous membranes moist. Eyes General: appearance normal, both eyes and all related structures Neck Other: No apparent posterior C-spine tenderness of the neck. She seemed to be moving her neck without apparent discomfort. No JVD. Resp Other: Breath sounds seemed fairly clear. Cardio Rate: regular rate Rhythm: regular rhythm Heart sounds: S1 normal heart sound present and S2 normal heart sound present GI Other: The abdomen is soft and nontender Back/Spine/Pelvis Other: She seemed to have some tenderness in the midline in the lumbar spine Skin Other: Skin is dry and unremarkable Neuro Other: The patient is awake and alert. She seems quite demented. Pupils are round equal, eye movements were intact, face was symmetrical, speech was with consistent with dementia but not otherwise abnormal. She seemed to move her extremities symmetrically although possibly with the pain in the left leg. Extrem Other: No sign of trauma to the upper extremities. I was able to move her right leg easily without apparent discomfort. When I tried to move her left leg she has a fit of coughing. Whether this was because of discomfort with left leg movement was difficult to determine. There was no obvious deformity. No asymmetry. Medical Decision Making Medical Decision Making MDM Narrative: The patient is a 74-year-old woman with a history of significant dementia who lives on a dementia unit at a local assisted living facility. She was diagnosed with COVID 4 days ago and is on Paxlovid. She also had a fall 2 days ago. She was not brought to the hospital initially because her MOLST form indicates that she is DNR/DNI and that she should not be transported to the hospital except for comfort. Apparently she has seemed very uncomfortable over the last couple of days and therefore she was sent to the hospital. The patient has fairly severe dementia which makes it impossible for her to tell me about her symptoms. On her exam I felt she might have some left hip pain and also some lower back pain. An x-ray of the left hip shows no fracture and an x-ray of the lumbar spine shows no fracture. She was also having fits of coughing. Her chest x-ray is clear. She had a CBC with a white count of 11.4. She is 75% neutrophils and 17% lymphocytes. A basic metabolic panel has been ordered but the to became hemolyzed. The patient's son and healthcare proxy was at the bedside. I explained that the metabolic panel could not give us any results. We decided that since there does not seem to be any fracture or other significant process aside from the COVID that we would not subject the patient to additional phlebotomy but we would have the patient returned to her long term to continue Paxlovid and other care. Lab Data 09/14/25 16:45 09/14/25 16:45 Labs: Lab Results 09/14/25 Range/Units 16:45 WBC 11.4 H (4.8-10.8) X10*3/uL RBC 4.54 (4.20-5.50) X10*6/uL Hgb 14.1 (12.0-16.0) g/dl Hct 41.0 (37.0-47.0) % MCV 90.3 (80.0-98.0) fL MCH 31.1 (27.0-33.0) pg MCHC 34.4 (31.0-35.0) g/dl RDW 12.2 (11.0-16.0) % Plt Count 153 L D (160-400) X10*3/uL MPV 10.1 (9.4-12.3) fL Immature Gran % (Auto) 0.4 (0.0-0.4) % Neut % (Auto) 75.3 H (45-73) % Lymph % (Auto) 17.4 L (20-40) % [place] % (Auto) 6.5 (2-11) % Eos % (Auto) 0.3 (0-4) % Baso % (Auto) 0.1 (0-2) % Lymph # (Auto) 2.0 (1.2-4.9) X10*3/uL [place] # (Auto) 0.7 (0.1-1.2) X10*3/uL Eos # (Auto) 0.0 (0.0-0.4) X10*3/uL Baso # (Auto) 0.0 (0.0-0.2) X10*3/uL Abs Immat Gran (auto) 0.04 H (0.00-0.03) X10*3/uL Absolute Neuts (auto) 8.6 H (2.0-8.3) x10*3/uL Absolute Nucleated RBC 0.000 (0.0-0.012) X10*3/uL Nucleated RBC % (auto) 0.0 (0.0-0.2) /100WBC Sodium Cancelled Potassium Cancelled Chloride Cancelled Carbon Dioxide Cancelled Anion Gap Cancelled BUN Cancelled Creatinine Cancelled Estim Creat Clear Calc Cancelled Estimated GFR Cancelled Random Glucose Cancelled Calcium Cancelled C-Reactive Protein Cancelled COVID-19 (JOSE) Positive A (Negative) COVID-19 Clin Com See Note Influenza Type A (SUZY) Negative (Negative) Influenza Type B (SUZY) Negative (Negative) Influenza A & B Note See Note Discharge Plan Discharge Clinical Impression: Body aches, COVID-19 Patient Disposition: Xfer SNF Additional Instructions: X-rays of the left hip and of the lumbar spine show no fractures. Chest x-ray is clear. Our test for COVID is also positive. Please continue Paxlovid and other regular medications. Return to the emergency room if significantly worse. Prescriptions: No Action cholecalciferol (vitamin D3) 50 mcg (2,000 unit) capsule 50 mcg PO DAILY 90 Days Qty: 90 11RF memantine 10 mg tablet 10 mg PO BID 90 Days Qty: 180 11RF nitrofurantoin 50 mg/5 mL suspension 50 mg PO BEDTIME 30 Days Qty: 150 3RF Rx Instructions: must administer with a meal/food sertraline 100 mg tablet 100 mg PO DAILY 90 Days Qty: 90 1RF nystatin 100,000 unit/gram cream 1 appl topical BID PRN (Reason: rash) 30 Days Qty: 30 0RF docusate sodium 100 mg capsule 100 mg PO BID PRN (Reason: constipation) 30 Days Qty: 60 0RF nystatin 100,000 unit/gram powder 1 appl topical DAILY 14 Days Qty: 30 0RF aspirin 81 mg tablet,delayed release (DR/EC) 81 mg PO DAILY Qty: 90 1RF Paxlovid 300 mg (150 mg x 2)-100 mg tablets,dose pack 3 ea PO PER PKG DIR 5 Days Qty: 30 0RF risperidone 0.25 mg tablet PO nitrofurantoin macrocrystal 50 mg capsule 50 mg PO BEDTIME 90 Days Qty: 90 1RF Rx Instructions: must administer with a meal/food estradiol [Estrace] 0.01 % (0.1 mg/gram) cream 1 appful vaginal DAILY Qty: 42.5 1RF Rx Instructions: apply to urethral caruncle/mucosa, 3 times a week atorvastatin 80 mg tablet 80 mg PO DAILY Referrals: Alexia Oliveira MD [Primary Care Provider, Internal Medicine] Interventions: ED Discharge Assessment Last Done: 09/14/25 19:41 Discharge Date/Time: 09/14/25 19:41 Print Language: [place]
[2025-09-14 16:49] LABS: MANUAL DIFF FLAG NO
[2025-09-14 16:57] LABS: Hematocrit 41.0 % (37.0-47.0); Hemoglobin 14.1 g/dl (12.0-16.0); Imm Gran Abs Auto 0.04 X10*3/uL (0.00-0.03); Imm Gran Pct Auto 0.4 % (0.0-0.4); Lymphocytes Absolute Auto 2.0 X10*3/uL (1.2-4.9); Mean Corpuscular HGB Conc 34.4 g/dl (31.0-35.0); Mean Corpuscular Hemoglobin 31.1 pg (27.0-33.0); Mean Corpuscular Volume 90.3 fL (80.0-98.0); NRBC Abs Auto 0.000 X10*3/uL (0.0-0.012); NRBC Pct Auto 0.0 /100WBC (0.0-0.2); Platelet Count 153 X10*3/uL (160-400); Red Blood Count 4.54 X10*6/uL (4.20-5.50); White Blood Count 11.4 X10*3/uL (4.8-10.8)
[2025-09-14 17:11] LABS: IDNOW Serial# 55D5AD1C; Influenza B2 Negative (Negative)
[2025-09-14 17:14] LABS: COVID-19 Test Positive (Negative); IDNOW Serial# 58CA691E
--- NOTE | 2025-09-14 18:15 | PC.NURSE ---
patient to radiology, awaiting on results, family at bedside.
[2025-09-14 19:15] VITALS: BP 136/83; PULSE 86; RESP 18; TEMP 36.6; O2SAT 94
[2025-09-14 19:41] VITALS: BP 136/83; PULSE 86; RESP 18; TEMP 36.6; O2SAT 94
== END 2025-09-14 19:41 | disposition skilled nursing facility (03) ==
PROVIDERS: Emergency Provider Emergency Medicine; PCP Internal Medicine
DX: U07.1 COVID-19 (principal); M79.10 Myalgia, unspecified site; M54.50 Low back pain, unspecified; M25.552 Pain in left hip; R05.9 Cough, unspecified; F03.90 Unspecified dementia, unspecified severity, without behavioral disturbance, psychotic disturbance, mood disturbance, and anxiety; Z79.899 Other long term (current) drug therapy
CPT/HCPCS: 36415; 71045; 72100; 73502; 80048; 85025; 86140; 87502; 87635; 99283; 99284

== ENCOUNTER → 2025-09-14 16:31 | Outpatient (BNV) | payer MEDICARE, SELFPAY | PROVIDERS: Emergency Provider Emergency Medicine; PCP Internal Medicine; Visit Provider Specialist | DX: M25.552 Pain in left hip (principal); M51.360 Other intervertebral disc degeneration, lumbar region with discogenic back pain only; R05.9 Cough, unspecified; W19.XXXA Unspecified fall, initial encounter | CPT/HCPCS: 71045; 72100; 73502 ==

== ENCOUNTER 2025-10-21 09:09 | Outpatient (REF) | payer MEDICARE, SELFPAY ==
[2025-10-22 09:22] LABS: Appearance Urine Turbid; Glucose Urine UA Negative (Negative); PH 5.5 (5.0-9.0); Specific Gravity - Urine >= 1.030 (1.005-1.025)
== END 2025-10-21 09:10 | disposition home or self-care (01) ==
LOC: HO.LNP 09:09
PROVIDERS: Visit Provider Internal Medicine
DX: R39.9 Unspecified symptoms and signs involving the genitourinary system (principal)
CPT/HCPCS: 81003